=== PATIENT | female | born 1950 | race Caucasian/White ===

== ENCOUNTER 2024-11-28 09:35 | Outpatient (CLI) | payer MEDICARE, SELFPAY ==
--- NOTE | ~2024-11-28 | MR_ITS ---
EXAMINATION: MR cervical spine wo con DATE: 11/28/2024 10:47 INDICATION: Disease of spinal cord, unspecified. TECHNIQUE: Magnetic resonance imaging (MRI) of the cervical spine was performed without intravenous c ontrast. COMPARISON: Cervical spine MRI 06/18/2016 FINDINGS: Alignment is normal. Vertebral body heights are normal. There are changes of anterior fusio n procedure from C3 to C7 with interbody devices and anterior plates and screws. There is mildly decr eased disc height at C7-T1. The spinal cord signal intensity is normal. The following disc levels are specifically discussed: C2-C3: The disc does not extend beyond the endplate margin. There is no uncovertebral joint osteoarth ritis. There is severe bilateral facet joint osteoarthritis. There is mild bilateral neural foraminal stenosis. There is no central canal stenosis. C3-C4: There is severe right and moderate left uncovertebral joint hypertrophy. There is moderate anne ateral facet joint hypertrophy. There is mild lateral neural foraminal stenosis. There is no central canal stenosis. C4-C5: There is moderate bilateral uncovertebral joint hypertrophy. There is no facet joint osteoarth ritis. There is mild bilateral neural foraminal stenosis. There is no central canal stenosis. C5-C6: There is moderate bilateral uncovertebral joint hypertrophy. There is no facet joint osteoarth ritis. There is mild right neural foraminal stenosis. There is no central canal stenosis. C6-C7: There is mild bilateral uncovertebral joint hypertrophy. There is mild lateral facet joint ost eoarthritis. There is mild bilateral neural foraminal stenosis. There is no central canal stenosis. C7-T1: There is a central extrusion. There is no uncovertebral joint osteoarthritis. There is severe bilateral facet joint osteoarthritis. There is mild bilateral neural foraminal stenosis. There is mil d central canal stenosis. IMPRESSION: 1. Mild cervical spondylosis. 2. Anterior fusion procedure from C3 to C7. Reviewed, dictated and finalized at location A. ANICAL ADJUSTER
--- NOTE | ~2024-11-28 | US_ITS ---
EXAMINATION: US thyroid DATE: 11/28/2024 11:45 INDICATION: Disorder of thyroid, unspecified. TECHNIQUE: Multiple ultrasound images of the thyroid were obtained. COMPARISON: None. FINDINGS: The right thyroid lobe measures 4.5 x 1.6 x 1.7 cm. The left thyroid lobe measures 4.3 x 1.8 x 1.6 c m. In the right thyroid lobe, there is a 10 mm solid, hypoechoic, wider than tall nodule with smooth margin without echogenic foci (TI-RADS TR4). In the right thyroid lobe, there is a 7 mm mixed cystic and solid, isoechoic, wider than tall nodule with ill-defined margin without echogenic foci (TR2). I n the left thyroid lobe, there is a 9 mm solid, hypoechoic, wider than tall nodule with lobulated mar gin with punctate echogenic foci (TR5). In the left thyroid lobe, there is a 7 mm mixed cystic and so lid, hypoechoic, wider than tall nodule with smooth margin without echogenic foci (TR3). IMPRESSION: 1. Small thyroid nodules. Thyroid ultrasound is recommended in one year. Reviewed, dictated and finalized at location A. TH RESEARCHER
--- OUTSIDE RECORDS SUMMARY | 2024-11-28 10:27 | XMS_ITS | Patient Health Summary ---
Author Organization [facility] Address [address] [place] [address] Care Team Providers Care Websphere Developer Name Role Phone Unavailable Primary Care Provider Unavailabl e Note from [facility],non-owned Affiliates and Associated Physician Practices is amultiple site organization consisting of ambulatory clinics and hospital sitesin [place], [place], [place] and [place]. This disclosure is being madepursuant to the Care Everywhere program and may not contain all information available regarding this patient. Last updated 18.[facility] Social History Tobacco Use Types Packs/Day Years Used Date Smoking Tobacco: Never Assessed Sex and Gender Information Value Date Recorded Sex Assigned at Not on file Gender Identity Not on file Sexual Orientation Not on file
--- OUTSIDE RECORDS SUMMARY | 2024-11-28 10:27 | XMS_ITS | Referral Summary ---
Author Organization [facility] Address [address] [place] [address] Care Team Providers Care Contract Associate Name Role Phone Ann Koenig MD Primary Care Provider Encounters Date Type Department Care Team Description 10/09/2024 12:00 PM CASUALTY CLAIM ADJUSTER Office Visit [facility] Otolaryngology [address] [facility] [address], [address] [place] [address] Leonardo Bach II, MD Closed fracture of nasal bone, initial encounter (Primary Dx) from Last 3 Months Allergies Active Allergy Reactions Criticality Noted Date Comments Methadone Dizziness,Muscle pain,Other (See comments) High 08/18/2015 Slurred speech Hgeytpu-Dtb-Oen Reductase Inhibitors Muscle pain Medium 03/27/2019 Medications lidocaine (LIDODERM) 5 %Indications:pain Place 1 patch on the skin as needed 01/12/20 19 Active meloxicam (MOBIC) 15 mg tabletIndications: Osteoarthritis Take 1 tablet (15 mg total) by mouth every morning 01/04/20 19 Active albuterol HFA (VENTOLIN HFA) 90 mcg/actuation inhalerIndications :shortness of breath Inhale 1-2 puffs every 6 (six) hours as needed 09/12/20 17 Active allopurinol (ZYLOPRIM) 300 mg tabletIndications: prevention of acute gout attack Take 1 tablet (300 mg total) by mouth every morning 11/16/19 19 Active aspirin 81 mg enteric coated tabletIndications: prevention of thrombosis,heart health Take 1 tablet (81 mg total) by mouth every morning 12/27/19 15 Active blood glucose diagnostic (TRUE METRIX GLUCOSE TEST STRIP) strip 1 each by other route 2 (two) times a day 10/14/19 17 Active chlorthalidone 25 mg tabletIndications: hypertension Take 1 tablet (25 mg total) by mouth every morning 09/14/20 18 Active clopidogrel (PLAVIX) 75 mg tabletIndications: Cerebral Thromboembolism Prevention Take 1 tablet (75 mg total) by mouth every morning 09/11/20 18 Active diclofenac sodium (VOLTAREN) 1 % gelIndications:Ost eoarthritis Place 4 g on the skin daily as needed 06/19/20 18 Active dilTIAZem XR (CARTIA XT) 180 mg 24 hr capsuleIndications :hypertension Take 1 capsule (180 mg total) by mouth every morning 09/11/20 18 Active gabapentin (NEURONTIN) 800 mg tabletIndications: Neuropathic Pain Take 1 tablet (800 mg total) by mouth 3 (three) times a day 01/04/20 19 Active lancets (TRUEPLUS LANCETS) 28 gauge misc by other route 2 (two) times a day 10/14/19 17 Active lisinopril (PRINIVIL,ZESTRIL) 10 mg tabletIndications: hypertension Take 1 tablet (10 mg total) by mouth every morning 09/14/20 18 Active metFORMIN XR (GLUCOPHAGE XR) 500 mg 24 hr tabletIndications: type 2 diabetes mellitus Take 2 tablets (1,000 mg total) by mouth 2 (two) times a day 12/09/19 19 Active omeprazole (PriLOSEC) 20 mg capsuleIndications :GERD Take 1 capsule (20 mg total) by mouth nightly 09/11/20 18 Active ergocalciferol (VITAMIN D) 50,000 unit capsuleIndications :Vitamin D Deficiency Take 1 capsule (50,000 Units total) by mouth once a week Tuesday05/20/20 20 Active acetaminophen (TYLENOL) 325 mg tablet Take 2 tablets (650 mg total) by mouth every 6 (six) hours as needed for pain 100 tablet 1 08/02/20 20 Active docusate sodium (COLACE) 100 mg capsuleIndications :constipation Take 1 capsule (100 mg total) by mouth 2 (two) times a day HOLD if having diarrhea or loose stools 30 capsule 1 08/02/20 20 Active Accu-Chek Guide Me Glucose Mtr misc USE TO CHECK GLUCOSE TWICE DAILY 11/25/19 21 Active cyclobenzaprine (FLEXERIL) 10 mg tablet TAKE 1 TABLET BY MOUTH THREE TIMES DAILY NEEDED FOR MUSCLE SPASM 09/20/20 20 Active diazePAM (VALIUM) 2 mg tablet TAKE 1 TABLET BY MOUTH EVERY 6 HOURS NEEDED FOR ANXIETY (TAKE VALIUM DURING THE DAY AND CYCLOBENZAPRINE AT NIGHT) 09/22/20 20 Active ibuprofen (ADVIL,MOTRIN) 600 mg tablet Take by mouth every 6 (six) hours as needed 09/20/20 20 Active Active Problems Problem Noted Date Diagnosed Date Closed fracture of nasal bones 10/09/2024 Renovascular hypertension 12/22/2020 Abnormal finding on lung imaging 09/11/2020 Stage 3 chronic kidney disease 07/30/2020 Right shoulder pain 07/14/2020 Overview (07/14/2020): Added automatically from request for surgery [id number] Shoulder arthritis 07/14/2020 Overview (07/14/2020): Added automatically from request for surgery [id number] MARIE (dyspnea on exertion) 07/07/2020 Metabolic syndrome 07/07/2020 Physical deconditioning 07/07/2020 Restrictive lung disease 07/07/2020 Dysphagia 06/24/2020 Overview (12/22/2020): Added automatically from request for surgery [id number] Gastrointestinal hemorrhage associated with anorectal source 06/24/2020 Overview (12/22/2020): Added automatically from request for surgery [id number] Essential hypertension 02/06/2019 GERD (gastroesophageal reflux disease) 9 Right hip pain 07/12/2018 Acute upper respiratory infection 06/26/2018 Biceps tendon rupture, proximal 01/31/2018 Wheezing 01/10/2018 Tear of medial meniscus of right knee 12/13/2017 Lytic lesion of bone on x-ray 12/01/2017 Fall, accidental 11/14/2017 Knee pain 11/07/2017 Wears glasses 10/17/2017 Shoulder pain, right 07/20/2017 Overview (02/06/2019): Annotation - [id number]: Dx 2012 Right shoulder pain 07/20/2017 Overview (12/22/2020): Annotation - [id number]: Dx 2012 Added automatically from request for surgery [id number] Class 3 severe obesity in adult 07/04/2017 Chest pain due to myocardial ischemia 04/25/2017 Dyslipidemia 04/25/2017 Unsteady gait 01/11/2017 Tendinitis, calcific, shoulder 01/11/2017 Shoulder arthritis 01/11/2017 Overview (12/22/2020): Added automatically from request for surgery [id number] Posterior tibial tendonitis 11/19/2016 Neck pain 06/09/2016 NAY on CPAP 06/09/2016 Overview (02/06/2019): Annotation - [id number]: 10/18/16 sleep titration study 12 mmhg Osteoporosis screening 06/09/2016 Overview (02/06/2019): Transitioned From: Encounter for preventive health examination Vitamin D deficiency 06/09/2016 Sore muscles 04/22/2015 Muscle spasm 02/24/2015 DDD (degenerative disc disease), cervical 2014 Diabetes mellitus 12/03/2014 Gout 12/03/2014 Hyperlipidemia 12/03/2014 Lumbar spinal stenosis 12/03/2014 Neuropathy, peripheral 12/03/2014 RLS (restless legs syndrome) 12/03/2014 TIA (transient ischemic attack) 05/27/2011 Social History Tobacco Use Types Packs/Day Years Used Date Smoking Tobacco: Never Smokeless Tobacco: Never Alcohol Use Standard Drinks/Week Comments Not Currently 0 (1 standard drink = 0.6 oz pur e alcohol) Comments No Sex and Gender Information Value Date Recorded Sex Assigned at Not on file Legal Sex Female 12:35 AM CASUALTY CLAIM ADJUSTER Gender Identity Female 09/08/2020 3:29 PM CASUALTY CLAIM ADJUSTER Sexual Orientation Choose not to disclose 2019 3:38 PM CASUALTY CLAIM ADJUSTER Last Filed Vital Signs Vital Sign Reading Time Taken Comments Blood Pressure 116/52 08/04/2020 6:59 AM CASUALTY CLAIM ADJUSTER Pulse 79 08/04/2020 6:59 AM CASUALTY CLAIM ADJUSTER Temperature 36.2 C (97.1 F) 08/04/2020 6:59 AM CASUALTY CLAIM ADJUSTER Respiratory Rate 18 08/04/2020 6:59 AM CASUALTY CLAIM ADJUSTER Oxygen Saturation 92% 08/04/2020 6:59 AM CASUALTY CLAIM ADJUSTER Inhaled Oxygen Concentration - - Weight 95.7 kg (211 lb) 10/09/2024 4:24 PM CASUALTY CLAIM ADJUSTER Height 157.5 cm (5' 2 ) 10/09/2024 4:24 PM CASUALTY CLAIM ADJUSTER Body Mass Index 38.59 10/09/2024 4:24 PM CASUALTY CLAIM ADJUSTER Plan of Treatment Not on file Medical Devices Implanted Type Area Field Contractor Device Identifier Shelf Expiration Date Model / Serial / Lot [employer] [id number] Delta Xtend 38mm Shoulder +3mm Standard Cup Humeral Polyethylene Latex Free - Sna - [id number] Implanted:Qty: 1 on 08/01/2020 by Harris Corado MD at [facility] Other - see comments [employer] [id number] 04/25/2025 [id number] / NA / [id number] [employer] [id number] Metaglene 10mm Long Peg Fixation - [id number] Implanted:Qty: 1 on 08/01/2020 by Harris Corado MD at [facility] Right: Shoulder [employer] [id number] 06/25/2025 [id number] / / [id number] [employer] [id number] Delta Xtend 4.5mm 36mm Lock Shoulder Glenoid Screw Bone Metaglene - [id number] Implanted:Qty: 1 on 08/01/2020 by Harris Corado MD at [facility] Right: Shoulder [employer] [id number] 04/25/2025 [id number] / / [id number] [employer] [id number] Delta Xtend 4.5mm 36mm Lock Shoulder Glenoid Screw Bone Metaglene - [id number] Implanted:Qty: 1 on 08/01/2020 by Harris Corado MD at [facility] Right: Shoulder [employer] [id number] 05/26/2025 [id number] / / [id number] [employer] [id number] Cmpnt Glenoid 38mm +4mm Eccentric Delta Xtend - [id number] Implanted:Qty: 1 on 08/01/2020 by Harris Corado MD at [facility] Right: Shoulder [employer] [id number] 05/26/2024 [id number] / / [id number] [employer] [id number] Global Unite 8mm 107mm Modular Shoulder Standard Stem Humeral - [id number] Implanted:Qty: 1 on 08/01/2020 by Harris Corado MD at [facility] Right: Shoulder [employer] [id number] 11/23/2028 [id number] / / [id number] [employer] [id number] Implant Shldr Xtend Modecc 155epi Por Sz1 Rt - [id number] Implanted:Qty: 1 on 08/01/2020 by Harris Corado MD at [facility] Right: Shoulder [employer] 04/25/2030 [id number] / / [id number] Explanted Type Area Field Contractor Device Identifier Shelf Expiration Date Model / Serial / Lot [employer] [id number] Delta Xtend 1.2mm 150mm Screw Glenoid Large Guide Pin Orthopedic - [id number] Explanted:Qty: 1 on 08/01/2020 at [facility] [employer] [id number] / / Description:*ADDED TO [employer] T SCREEN TO CORRECT NEW ITEM ADDED ON SUPPLY. THIS IS BUILT IN [employer] AN IMPLANT. KV Procedures Procedure Name Priority Date/Time Associated Diagnosis Comments EGFR Routine 08/04/2020 5:54 AM CASUALTY CLAIM ADJUSTER POCT HEMOGLOBIN A1C Routine 07/25/2020 9 :08 AM CDT from Last 3 Months or Most Recently Relevant to Health Maintenance Results * eGFR (08/04/2020 5:54 AM CASUALTY CLAIM ADJUSTER) eGFR 38 mL/min/1.7 3 m2 [facility] Comment: Interpretive Data Reference Interval Normal >/= 90 mL/min/1.73m2 Mildly decreased* 60 - 89 mL/min/1.73m2 Mildly to moderately decreased 45 - 59 mL/min/1.73m2 Moderately to severely decreased 30 - 44 mL/min/1.73m2 Severely decreased 15 - 29 mL/min/1.73m2 Kidney Failure < 15 mL/min/1.73m2 *Relative to young adult level If -Guyanese multiply value by 1.16. Estimated glomerular filtration rate is determined by the CKD-EPI equation recommended by the National Kidney Foundation (KDIGO 2012 Clinical Practice Guideline for the Evaluation and Management of Chronic Kidney Disease. Kidney Intnl Suppl Sep 2012;3:1). The CKD-EPI equation should not be used for patients with unstable renal function and has not been validated in children and those over 70. Current interpretive data was last reviewed 2016. Blood specimen (specimen) 08/04/2020 5:54 AM CASUALTY CLAIM ADJUSTER 08/04/2020 6:01 AM CASUALTY CLAIM ADJUSTER us Sameer Eddy MD LAB BLOOD ORDERABLES F inal Result Performing Organization Address [facility] Co de Phone Number [facility] [address] [facility] [place] [address] * (ABNORMAL) POCT hemoglobin A1c (07/25/2020 9:08 AM CDT) Hgb A1C, POC 6.6(H) 4.0 - 6.0 % [facility] Est Average Gluc POC 143 mg/dL [facility] Comment: The ADA recommends reporting an estimated Average Glucose (eAG) with all Hemoglobin A1c results using the equation derived from a study of 507 normal and diabetic adults. Minority populations were underrepresented and children were not included. (Diabetes Care 31:1802-1809, 2008). The eAG is not equivalent to a fasting glucose. Blood specimen (specimen) 07/25/2020 9:08 AM CDT 07/25/2020 9:08 AM CDT Harris Corado MD POINT OF CARE TEST ORD ERABLES Final Result Performing Organization Address City/[facility]/ZIP Co de Phone Number [facility] Department [place] [address] from Last 3 Months or Most Recently Relevant to Health Maintenance Insurance [facility] MEDICARE HMO [facility] CHOICE MEDICARE O MEDICARE [employer] CHOICE MEDICARE PPO AARP [employer] CHOICE MEDICARE PPO AARP Advance Directives For more information, please contact: [phone] Documents on File Type Date Recorded Patient Senior Tax Accountant Expl anation ADVANCE DIRECTIVE 08/01/2020 7:45 AM * Full Code (Latest Code Status on File) Date Activated Date Inactivated Comments 08/01/2020 1:20 PM 08/04/2020 4:52 PM Care Teams Contract Associate Relationship Specialty [place] [address] [place] [address] PCP - General Family Medicine 07/19/24
--- OUTSIDE RECORDS SUMMARY | 2024-11-28 10:27 | XMS_ITS | Encounter Summary ---
Author Organization [facility] Address [address] [place] [address] Care Team Providers Care Pullman Car Clerk Name Role Phone Gertrude Butt MD Primary Care Provider Ann Koenig MD Primary Care Provider [phone] Encounter Details Date Type Department Care Team (Late st Contact Info) Description 08/04/2020 Documentation [facility] Case Management [address] [place] [address] Nohelia Connor RN Social History Tobacco Use Types Packs/Day Years Used Date Smoking Tobacco: Never Smokeless Tobacco: Never Alcohol Use Standard Drinks/Week Comments Not Currently 0 (1 standard drink = 0.6 oz pur e alcohol) Comments No Sex and Gender Information Value Date Recorded Sex Assigned at Not on file Legal Sex Female 12:35 AM ELECTRONIC TECH Gender Identity Female 09/08/2020 3:29 PM ELECTRONIC TECH Sexual Orientation Choose not to disclose 2019 3:38 PM ELECTRONIC TECH documented as of this encounter Plan of Treatment Not on file documented as of this encounter Visit Diagnoses Diagnosis Primary osteoarthritis of shoulder, unspecified laterality- Primary documented in this encounter Care Teams Pullman Car Clerk Relationship Specialty [place] [address] [address] [address] PCP - General Internal Medicine 01/16/19 07/18/24 [place] [address] [address] PCP - General Family Medicine 07/19/24 documented as of this encounter
--- OUTSIDE RECORDS SUMMARY | 2024-11-28 10:27 | XMS_ITS | Encounter Summary ---
Author Organization [facility] Address [address] [place] [address] Phone Care Team Providers Care Electrocardiographic Technician Name Role Phone Gertrude Butt MD Primary Care Provider [phone] Ann Koenig MD Primary Care Provider [phone] Encounter Details Date Type Department Care Team (Late st Contact Info) Description 04/19/2019 Orders Only [facility] [phone] Scanning, Provider Social History Tobacco Use Types Packs/Day Years Used Date Smoking Tobacco: Never Assessed Comments Unknown Sex and Gender Information Value Date Recorded Sex Assigned at Not on file Legal Sex Female 12:35 AM INFRASTRUCTURE PROJECT MANAGER Gender Identity Female 09/08/2020 3:29 PM INFRASTRUCTURE PROJECT MANAGER Sexual Orientation Choose not to disclose 2019 3:38 PM INFRASTRUCTURE PROJECT MANAGER documented as of this encounter Plan of Treatment Not on file documented as of this encounter Procedures Procedure Name Priority Date/Time Associated Diagnosis Comments SCAN - RADIOLOGY/IMAGING 04/19/2019 documented in this encounter Results * SCAN - RADIOLOGY/IMAGING (04/19/2019) Anatomical Region Laterality Modality Other us Provider Scanning Final Result documented in this encounter Visit Diagnoses Not on filedocumented in this encounter Care Teams Electrocardiographic Technician Relationship Specialty [place] [address] [address] [address] [place] [address] PCP - General Internal Medicine 01/16/19 07/18/24 [place] [address] [place] [address] PCP - General Family Medicine 07/19/24 documented as of this encounter
--- OUTSIDE RECORDS SUMMARY | 2024-11-28 10:27 | XMS_ITS | Clinical Summary ---
Author Organization [facility] Address [address] [place] [address] Care Team Providers Care Ring Conductor Name Role Phone Unavailable Primary Care Provider Unavailabl e Source Comments [facility],non-owned Affiliates and Associated Physician Practices is amultiple site organization consisting of ambulatory clinics and hospital sitesin [place], [place], [place] and [place]. This disclosure is being madepursuant to the Care Everywhere program and may not contain all information available regarding this patient. Last updated 18.[facility] [employer] Social History Tobacco Use Types Packs/Day Years Used Date Smoking Tobacco: Never Assessed Sex and Gender Information Value Date Recorded Sex Assigned at Not on file Gender Identity Not on file Sexual Orientation Not on file Plan of Treatment Health Maintenance Due Date Last Done Comments BONE DENSITY TESTING 1950 COLOGUARD (AGES 45-75) - COLON CA SCREENING 1949 COLON MONITORING 1949 COLONOSCOPY - COLON CA SCREENING 1949 CT COLONOGRAPHY - COLON CA SCREENING 1950 Colorectal Cancer Screening 1949 FIT - COLON CA SCREENING 1949 FLEX SIG - COLON CA SCREENING 1949 LIPID TESTING 1949 MAMMOGRAM 1949 HEPATITIS C SCREENING 04/27/1967 DTAP/TDAP/TD VACCINES (1 - Tdap) 1968 PNEUMOCOCCAL VACCINE 50+ (1 of 1 - PCV) 1999 ZOSTER VACCINE (1 of 2) 1999 Respiratory Syncytial Virus (RSV) Vaccine Pt: or over 60 yrs (1 - 1-dose 75+ series) 2024 COVID-19 VACCINE (1 - 2023-25 season) 2024 INFLUENZA VACCINE (#1) 2024 07/0407/04/2017, 06/09/2016, Additional history exists DEPRESSION SCREENING 09/26/2024 HEPATITIS B VACCINE Aged Out No longe r eligible based on patient's age to complete this topic HIB VACCINE Aged Out No longer eligi ble based on patient's age to complete this topic HPV VACCINE Aged Out No longer eligi ble based on patient's age to complete this topic MENINGOCOCCAL (Group B) VACCINE Aged Out No longer eligible based on patient's age to complete this topic MENINGOCOCCAL VACCINE Aged Out No francisco javier anurag eligible based on patient's age to complete this topic
--- OUTSIDE RECORDS SUMMARY | 2024-11-28 10:27 | XMS_ITS | Referral Summary ---
Author Organization [facility] Address [address] [place] [address] Care Team Providers Care Switchboard Operator Helper Name Role Phone Unavailable Primary Care Provider Unavailabl e Source Comments [facility],non-owned Affiliates and Associated Physician Practices is amultiple site organization consisting of ambulatory clinics and hospital sitesin [place], [place], [place] and [place]. This disclosure is being madepursuant to the Care Everywhere program and may not contain all information available regarding this patient. Last updated 18.[facility] Social History Tobacco Use Types Packs/Day Years Used Date Smoking Tobacco: Never Assessed Sex and Gender Information Value Date Recorded Sex Assigned at Not on file Gender Identity Not on file Sexual Orientation Not on file Plan of Treatment Not on file
--- OUTSIDE RECORDS SUMMARY | 2024-11-28 10:27 | XMS_ITS | Clinical Summary ---
Author Organization [facility] Address [address] [place] [address] Care Team Providers Care Bag Filler Name Role Phone Ann Koenig MD Primary Care Provider [phone] Allergies Active Allergy Reactions Criticality Noted Date Comments Methadone Dizziness,Muscle pain,Other (See comments) High 08/18/2015 Slurred speech Tlbdtnp-Sog-Hhp Reductase Inhibitors Muscle pain Medium 03/27/2019 Medications [...] 20 Active Accu-Chek Guide Me Glucose Mtr [facility] USE TO CHECK GLUCOSE TWICE DAILY 11/25/19 [...] (07/14/2020): Added automatically from request for surgery [id number] Shoulder arthritis 07/14/2020 Overview (07/14/2020): Added automatically from request for surgery [id number] MARIE (dyspnea on exertion) 07/07/2020 Metabolic syndrome 07/07/2020 Physical deconditioning 07/07/2020 Restrictive lung disease 07/07/2020 Dysphagia 06/24/2020 Overview (12/22/2020): Added automatically from request for surgery [id number] Gastrointestinal hemorrhage associated with anorectal source 06/24/2020 Overview (12/22/2020): Added automatically from request for surgery [id number] Essential hypertension 02/06/2019 GERD (gastroesophageal reflux disease) 9 Right hip pain 07/12/2018 Acute upper respiratory infection 06/26/2018 Biceps tendon rupture, proximal 01/31/2018 Wheezing 01/10/2018 Tear of medial meniscus of right knee 12/13/2017 Lytic lesion of bone on x-ray 12/01/2017 Fall, accidental 11/14/2017 Knee pain 11/07/2017 Wears glasses 10/17/2017 Shoulder pain, right 07/20/2017 Overview (02/06/2019): Annotation - [id number]: Dx 2012 Right shoulder pain 07/20/2017 Overview (12/22/2020): Annotation - [id number]: Dx 2012 Added automatically from request for surgery [id number] Class 3 severe obesity in adult 07/04/2017 Chest pain due to myocardial ischemia 04/25/2017 Dyslipidemia 04/25/2017 Unsteady gait 01/11/2017 Tendinitis, calcific, shoulder 01/11/2017 Shoulder arthritis 01/11/2017 Overview (12/22/2020): Added automatically from request for surgery [id number] Posterior tibial tendonitis 11/19/2016 Neck pain 06/09/2016 NAY on CPAP 06/09/2016 Overview (02/06/2019): Annotation - [id number]: 10/18/16 sleep titration study 12 mmhg Osteoporosis screening 06/09/2016 Overview (02/06/2019): Transitioned From: Encounter for preventive health examination Vitamin D deficiency 06/09/2016 Sore muscles 04/22/2015 Muscle spasm 02/24/2015 DDD (degenerative disc disease), cervical 2014 Diabetes mellitus 12/03/2014 Gout 12/03/2014 Hyperlipidemia 12/03/2014 Lumbar spinal stenosis 12/03/2014 Neuropathy, peripheral 12/03/2014 RLS (restless legs syndrome) 12/03/2014 TIA (transient ischemic attack) 05/27/2011 Encounters Date Type Department Care Team Description 10/09/2024 12:00 PM SERVICE CENTER SPECIALIST Office Visit [facility] Otolaryngology [address], [address] [place] [address] Leonardo Bach II, MD Closed fracture of nasal bone, initial encounter (Primary Dx) from Last 3 Months Surgical History Surgery Date Site/Laterality Comments FLUORO GUIDED INJECTION SHOULDER RIGHT 02/13/2019 Right EPIDURAL INJECTION RIGHT CERVICAL THORACIC 1 LEVEL 05/24/2019 Right FLUORO GUIDED INJECTION SHOULDER RIGHT 08/20/2019 Right COLONOSCOPY 2019 & 2003 BREAST BIOPSY 04/1992 , 07/1992 Left HYSTERECTOMY 11/24/1977 - 12/24/1977 Partial Hysterectomy GANGLION CYST EXCISION 09/26/1976 - 09/25/1977 Right CARPAL TUNNEL RELEASE 1991 & 1990 Bilateral 1992-Rt, 1991-L OTHER SURGICAL HISTORY 09/26/2007 - 09/25/2008 Exploratory bladder surgery NECK SURGERY 01/24/2010 - 02/23/2010 ESOPHAGOSCOPY / EGD 07/24/2020 CHOLECYSTECTOMY SPINE SURGERY Spinal intervetebral disc/vertabrae fusion Medical History Medical History Date Comments Personal history of other me dical treatment 04/2008 Hospitalized due to having paresthesia waist down to feet -per Pt Personal history of other me dical treatment 04/2015 Hospitalized due to excessi ve sleepiness, inability to speak and inability to move body with paresthesia Sleep apnea HTN (hypertension) Diabetes (HCC) Neuropathy GERD (gastroesophageal reflux disease) Thyroid disease Stroke (HCC) Kidney disease Family History Medical History Relation Name Comments Cancer Mother COPD Sister 1 Heart failure Sister 1 COPD Sister 2 Cancer Sister 2 Relation Name Status Comments Mother Sister 1 Sister 2 Alive Social History Tobacco Use Types Packs/Day Years Used Date Smoking Tobacco: Never Smokeless Tobacco: Never Alcohol Use Standard Drinks/Week Comments Not Currently 0 (1 standard drink = 0.6 oz pur e alcohol) Comments No Sex and Gender Information Value Date Recorded Sex Assigned at Not on file Legal Sex Female 12:35 AM SERVICE CENTER SPECIALIST Gender Identity Female 09/08/2020 3:29 PM SERVICE CENTER SPECIALIST Sexual Orientation Choose not to disclose 2019 3:38 PM SERVICE CENTER SPECIALIST Obstetrics History Comments Post menopause Last Filed Vital Signs Vital Sign Reading Time Taken Comments Blood Pressure 116/52 08/04/2020 6:59 AM SERVICE CENTER SPECIALIST Pulse 79 08/04/2020 6:59 AM SERVICE CENTER SPECIALIST Temperature 36.2 C (97.1 F) 08/04/2020 6:59 AM SERVICE CENTER SPECIALIST Respiratory Rate 18 08/04/2020 6:59 AM SERVICE CENTER SPECIALIST Oxygen Saturation 92% 08/04/2020 6:59 AM SERVICE CENTER SPECIALIST Inhaled Oxygen Concentration - - Weight 95.7 kg (211 lb) 10/09/2024 4:24 PM SERVICE CENTER SPECIALIST Height 157.5 cm (5' 2 ) 10/09/2024 4:24 PM SERVICE CENTER SPECIALIST Body Mass Index 38.59 10/09/2024 4:24 PM SERVICE CENTER SPECIALIST Plan of Treatment Health Maintenance Due Date Last Done Comments Albumin Creatinine Ratio, Urine 1949 Colon Cancer Screening-Colonoscopy 1949 Depression Screening 1949 Hepatitis C Screening 1949 Dilated Eye Exam 1949 Foot Exam 1949 Hepatitis B Screening 1967 Well Visit 65+ 2014 Osteoporosis Screening-Bone Density Scan 06/11/2018 06/11/2016 Hemoglobin A1C 01/23/2021 07/25/2020 Fall Risk Assessment 08/04/2021 08/04/2020 eGFR 08/04/2021 08/04/2020, 1104/2020, 08/02/2020 Covid-19 Vaccine (4 - 2023-2 5 season) 2024 07/23/2021, 12/30/2020, 12/02/2020 Lipid Panel 09/20/2024 09/20/2023, 07/03/2019 DTaP/Tdap/Td Vaccine (2 - Td or Tdap) 07/04/2025 07/04/2015 Pneumococcal vaccine 65+ Completed 020, 03/15/2016, 07/24/2014 Zoster Vaccine Completed 01/04/2023, 10/25/2022 Breast Cancer Screening-Mammogram Discontinued 12/07/2023, 08/26/2022, 08/24/2021, Additional history exists Influenza Vaccine Completed 07/14/2024, , 07/20/2020, Additional history exists Medical Devices Implanted Type Area Recordist Device Identifier Shelf Expiration Date Model / Serial / Lot [employer] [id number] Delta Xtend 38mm Shoulder +3mm Standard Cup Humeral Polyethylene Latex Free - Sna - [id number] Implanted:Qty: 1 on 08/01/2020 by Harris Corado MD at [facility] Other - see comments [employer] [id number] 04/25/2025 [id number] / NA / [id number] [employer] [id number] Metaglene 10mm Long Peg Fixation - [id number] Implanted:Qty: 1 on 08/01/2020 by Harris Corado MD at [facility] Right: Shoulder [employer] [id number] 06/25/2025 [id number] / / [id number] [employer] [id number] Delta Xtend 4.5mm 36mm Lock Shoulder Glenoid Screw Bone Metaglene - [id number] Implanted:Qty: 1 on 08/01/2020 by Harris Corado MD at [facility] Right: Shoulder [employer] [id number] 04/25/2025 [id number] / / [id number] [employer] [id number] Delta Xtend 4.5mm 36mm Lock Shoulder Glenoid Screw Bone Metaglene - [id number] Implanted:Qty: 1 on 08/01/2020 by Harris Corado MD at [facility] Right: Shoulder [employer] [id number] 05/26/2025 [id number] / / [id number] [employer] [id number] Cmpnt Glenoid 38mm +4mm Eccentric Delta Xtend - [id number] Implanted:Qty: 1 on 08/01/2020 by Harris Corado MD at [facility] Right: Shoulder [employer] [id number] 05/26/2024 [id number] / / [id number] [employer] [id number] Global Unite 8mm 107mm Modular Shoulder Standard Stem Humeral - [id number] Implanted:Qty: 1 on 08/01/2020 by Harris Corado MD at [facility] Right: Shoulder [employer] [id number] 11/23/2028 [id number] / / [id number] [employer] [id number] Implant Shldr Xtend Modecc 155epi Por Sz1 Rt - [id number] Implanted:Qty: 1 on 08/01/2020 by Harris Corado MD at [facility] Right: Shoulder [employer] 04/25/2030 [id number] / / [id number] Explanted Type Area Recordist Device Identifier Shelf Expiration Date Model / Serial / Lot [employer] [id number] Delta Xtend 1.2mm 150mm Screw Glenoid Large Guide Pin Orthopedic - [id number] Explanted:Qty: 1 on 08/01/2020 at [facility] [employer] [id number] / / Description:*ADDED TO [employer] T SCREEN TO CORRECT NEW ITEM ADDED ON SUPPLY. THIS IS BUILT IN [employer] AN IMPLANT. KV Procedures Procedure Name Priority Date/Time Associated Diagnosis Comments EGFR Routine 08/04/2020 5:54 AM SERVICE CENTER SPECIALIST POCT HEMOGLOBIN A1C Routine 07/25/2020 9 :08 AM CDT from Last 3 Months or Most Recently Relevant to Health Maintenance Results * eGFR (08/04/2020 5:54 AM SERVICE CENTER SPECIALIST) eGFR 38 mL/min/1.7 3 m2 [facility] Comment: Interpretive Data Reference Interval Normal >/= 90 mL/min/1.73m2 Mildly decreased* 60 - 89 mL/min/1.73m2 Mildly to moderately decreased 45 - 59 mL/min/1.73m2 Moderately to severely decreased 30 - 44 mL/min/1.73m2 Severely decreased 15 - 29 mL/min/1.73m2 Kidney Failure < 15 mL/min/1.73m2 *Relative to young adult level If -Marshallese multiply value by 1.16. Estimated glomerular filtration [...] 2016. Blood specimen (specimen) 08/04/2020 5:54 AM SERVICE CENTER SPECIALIST 08/04/2020 6:01 AM SERVICE CENTER SPECIALIST us Sameer Eddy MD LAB BLOOD ORDERABLES F inal Result [facility] [address] [facility]. Department [place] [address] * (ABNORMAL) POCT hemoglobin A1c (07/25/2020 9:08 AM CDT) Hgb A1C, POC 6.6(H) 4.0 - 6.0 % [facility] Est Average Gluc POC 143 mg/dL [facility] Comment: The ADA recommends reporting an estimated Average Glucose (eAG) with all Hemoglobin A1c results using the equation derived from a study of 507 normal and diabetic adults. Minority populations were underrepresented and children were not included. (Diabetes Care 31:9644-5082, 2008). The eAG is not equivalent to a fasting glucose. Blood specimen (specimen) 07/25/2020 9:08 AM CDT 07/25/2020 9:08 AM CDT Harris Corado MD POINT OF CARE TEST ORD ERABLES Final Result [facility] Department [place] [address] from Last 3 Months or Most Recently Relevant to Health Maintenance Insurance HUMANA MEDICARE HMO HUMANA CHOICE MEDICARE O AARP MEDICARE HUMANA CHOICE MEDICARE PPO Member Subscriber Plan / Payer (Ef fective 2019-Present) Name:Maria Luz Recinos Relation to Subscriber:Self Name:Jorje Maria Luz Payer ID:[id number] Group ID:[id number] RE Type:COMMERCIAL Address: [address] [place] [phone] HUMANA CHOICE MEDICARE PPO AARP Advance Directives For more information, please contact: [phone] Documents on File Type Date Recorded Patient Director Of Sports Medicine Expl anation ADVANCE DIRECTIVE 08/01/2020 7:45 AM * Full Code (Latest Code Status on File) Date Activated Date Inactivated Comments 08/01/2020 1:20 PM 08/04/2020 4:52 PM Care Teams Bag Filler Relationship Specialty [place] [address] [place] [address] PCP - General Family Medicine 07/19/24
== END 2024-11-28 09:36 | disposition home or self-care (01) ==
PROVIDERS: PCP Family Medicine; Visit Provider Neurological Surgery
DX: E04.2 Nontoxic multinodular goiter (principal); M47.812 Spondylosis without myelopathy or radiculopathy, cervical region; Z98.1 Arthrodesis status
CPT/HCPCS: 72141; 76536

== ENCOUNTER 2024-12-04 15:05 | Outpatient (CLI) | payer MEDICARE, SELFPAY ==
--- NOTE | ~2024-12-04 | DEXA_ITS ---
Bone Density Report Name: AYAKA LONG Age: 74 Sex: Female Ethnicity: White Date of : 1950 Indication: postmenopausal; screening for osteoporosis; height loss; inflammatory bowel disease; history of glucocorticoids; hysterectomy; rheumatoid arthritis; Referring Provider: THADDEUS STEWART Study: Bone densitometry was performed. Exam Date: December 04, 2024 Accession number: [id number] Bone Density: Region BMD T-score Z-score Classification AP Spine(L1-L4) 1.258 1.9 4.3 Normal Femoral Neck (Left) 0.795 -0.5 1.6 Normal Total Hip (Left) 0.912 -0.2 1.6 Normal Femoral Neck (Right) 0.760 -0.8 1.3 Normal Total Hip (Right) 0.910 -0.3 1.6 Normal Total Hip Mean 0.911 -0.3 1.6 Normal World Health Organization criteria for BMD impression classify patients as: Normal (T-score at or above -1.0), Osteopenia (T-score between -1.0 and -2.5), or Osteoporosis (T-score at or below -2.5). 10-year Fracture Risk: FRAX not reported because: All T-scores for Spine Total, Hip Total, Femoral Neck at or above -1.0 Treated for osteoporosis Clinical Information Provided by Patient: Has taken Glucocorticoids Has rheumatoid arthritis Is being treated for osteoporosis Has used the following medications: Vitamin D, Calcium Has the following medical conditions: Inflammatory bowel diseases, Hysterectomy, STAGE 3 KIDNEY FAILURE Patient maximum height was 63.5 Menopause Age: 27 No regular weight bearing exercise Onset of menses at age 8 Number of children 0 Missed period for more than 6 months in a row Impression: The patient has normal bone mass. The patient has risk factors, including: history of glucocorticoid therapy. Discussion: It is important to ask patients whether they are taking their medications and to encourage continued and appropriate compliance with their osteoporosis therapies to reduce fracture risk. It is also important to review their risk factors and encourage appropriate calcium and vitamin D intakes, exercise, fall prevention and other lifestyle measures. Follow-Up: Consider a repeat BMD and Vertebral Fracture Assessment (VFA) exam in 2 years or sooner if medically necessary, to reassess this patient's status. Reported by: WILLIE on 12/04/2024 3:56:00 PM. Reviewed, dictated and finalized at location AJonathan GILMORE
--- OUTSIDE RECORDS SUMMARY | 2024-12-04 17:06 | XMS_ITS | Encounter Summary ---
Author Organization [facility] [facility] Address [address] [place] [address] Phone Care Team Providers Care Newswriter Name Role Phone Gertrude Butt MD Primary Care Provider Ann Koenig MD Primary Care Provider [phone] Encounter Details Date Type Department Care Team (Late st Contact Info) Description 04/19/2019 Orders Only [facility] [phone] Scanning, Provider Social History Tobacco Use Types Packs/Day Years Used Date Smoking Tobacco: Never Assessed Comments Unknown Sex and Gender Information Value Date Recorded Sex Assigned at Not on file Legal Sex Female 12:35 AM COACH CLEANER Gender Identity Female 09/08/2020 3:29 PM COACH CLEANER Sexual Orientation Choose not to disclose 2019 3:38 PM COACH CLEANER documented as of this encounter Plan of Treatment Not on file documented as of this encounter Procedures Procedure Name Priority Date/Time Associated Diagnosis Comments SCAN - RADIOLOGY/IMAGING 04/19/2019 documented in this encounter Results * SCAN - RADIOLOGY/IMAGING (04/19/2019) Anatomical Region Laterality Modality Other us Provider Scanning Final Result documented in this encounter Visit Diagnoses Not on filedocumented in this encounter Care Teams Newswriter Relationship Specialty [place] [address] [place] [place] [address] PCP - General Internal Medicine 01/16/19 07/18/24 [place] [address] [place] [address] PCP - General Family Medicine 07/19/24 documented as of this encounter
--- OUTSIDE RECORDS SUMMARY | 2024-12-04 17:06 | XMS_ITS | Encounter Summary ---
Author Organization [facility] Address [address] [place] [address] Care Team Providers Care Carbon Paper Coating Supervisor Name Role Phone Gertrude Butt MD Primary Care Provider [phone] Ann Koenig MD Primary Care Provider Encounter Details Date Type Department Care Team (Late st Contact Info) Description 08/04/2020 Documentation [facility] Case Management [address] [place] [address] Nohelia Connor RN Social History Tobacco Use Types Packs/Day Years Used Date Smoking Tobacco: Never Smokeless Tobacco: Never Alcohol Use Standard Drinks/Week Comments Not Currently 0 (1 standard drink = 0.6 oz pur e alcohol) Comments No Sex and Gender Information Value Date Recorded Sex Assigned at Not on file Legal Sex Female 12:35 AM METAL PAINTER Gender Identity Female 09/08/2020 3:29 PM METAL PAINTER Sexual Orientation Choose not to disclose 2019 3:38 PM METAL PAINTER documented as of this encounter Plan of Treatment Not on file documented as of this encounter Visit Diagnoses Diagnosis Primary osteoarthritis of shoulder, unspecified laterality- Primary documented in this encounter Care Teams Carbon Paper Coating Supervisor Relationship Specialty [place] [address] [address] [address] PCP - General Internal Medicine 01/16/19 07/18/24 [place] [address] [address] PCP - General Family Medicine 07/19/24 documented as of this encounter
--- OUTSIDE RECORDS SUMMARY | 2024-12-04 17:06 | XMS_ITS | Clinical Summary ---
Author Organization [facility] Address [address] [place] [address] Care Team Providers Care Booth Manager Name Role Phone Ann Koenig MD Primary Care Provider [phone] Allergies Active Allergy Reactions Criticality Noted Date Comments Methadone Dizziness,Muscle pain,Other (See comments) High 08/18/2015 Slurred speech Dqairwq-Vii-Ugt Reductase Inhibitors Muscle pain Medium 03/27/2019 Medications [...] 20 Active Accu-Chek Guide Me Glucose Mtr [facility] USE TO CHECK GLUCOSE TWICE DAILY 11/25/19 [...] (07/14/2020): Added automatically from request for surgery [id number] Shoulder arthritis 07/14/2020 Overview (07/14/2020): Added automatically from request for surgery [id number] MARIE (dyspnea on exertion) 07/07/2020 Metabolic syndrome 07/07/2020 Physical deconditioning 07/07/2020 Restrictive lung disease 07/07/2020 Dysphagia 06/24/2020 Overview (12/22/2020): Added automatically from request for surgery [id number] Gastrointestinal hemorrhage associated with anorectal source 06/24/2020 Overview (12/22/2020): Added automatically from request for surgery [id number] Essential hypertension 02/06/2019 GERD (gastroesophageal reflux disease) 9 Right hip pain 07/12/2018 Acute upper respiratory infection 06/26/2018 Biceps tendon rupture, proximal 01/31/2018 Wheezing 01/10/2018 Tear of medial meniscus of right knee 12/13/2017 Lytic lesion of bone on x-ray 12/01/2017 Fall, accidental 11/14/2017 Knee pain 11/07/2017 Wears glasses 10/17/2017 Shoulder pain, right 07/20/2017 Overview (02/06/2019): Annotation - [id number]: Dx 2012 Right shoulder pain 07/20/2017 Overview (12/22/2020): Annotation - [id number]: Dx 2012 Added automatically from request for surgery [id number] Class 3 severe obesity in adult 07/04/2017 Chest pain due to myocardial ischemia 04/25/2017 Dyslipidemia 04/25/2017 Unsteady gait 01/11/2017 Tendinitis, calcific, shoulder 01/11/2017 Shoulder arthritis 01/11/2017 Overview (12/22/2020): Added automatically from request for surgery [id number] Posterior tibial tendonitis 11/19/2016 Neck pain 06/09/2016 ANY on CPAP 06/09/2016 Overview (02/06/2019): Annotation - [id number]: 10/18/16 sleep titration study 12 mmhg Osteoporosis [...] Department Care Team Description 10/09/2024 12:00 PM FIGURE MODEL Office Visit [facility] [address], [address] [place] [address] Leonardo Bach II, MD Closed [...] on file Legal Sex Female 12:35 AM FIGURE MODEL Gender Identity Female 09/08/2020 3:29 PM FIGURE MODEL Sexual Orientation Choose not to disclose 2019 3:38 PM FIGURE MODEL Obstetrics History Comments Post menopause Last Filed Vital Signs Vital Sign Reading Time Taken Comments Blood Pressure 116/52 08/04/2020 6:59 AM FIGURE MODEL Pulse 79 08/04/2020 6:59 AM FIGURE MODEL Temperature 36.2 C (97.1 F) 08/04/2020 6:59 AM FIGURE MODEL Respiratory Rate 18 08/04/2020 6:59 AM FIGURE MODEL Oxygen Saturation 92% 08/04/2020 6:59 AM FIGURE MODEL Inhaled Oxygen Concentration - - Weight 95.7 kg (211 lb) 10/09/2024 4:24 PM FIGURE MODEL Height 157.5 cm (5' 2 ) 10/09/2024 4:24 PM FIGURE MODEL Body Mass Index 38.59 10/09/2024 4:24 PM FIGURE MODEL Plan of Treatment Health Maintenance Due Date [...] history exists Medical Devices Implanted Type Area Grain Elevator Motor Starter Device Identifier Shelf Expiration Date Model / Serial / Lot Depuy Orthopaed[employer] Inc [id number] Delta Xtend 38mm Shoulder +3mm Standard Cup Humeral Polyethylene Latex Free - Sna - [id number] Implanted:Qty: 1 on 08/01/2020 by Harris Corado MD at [facility] Other - see comments Depuy [employer] [id number] 04/25/2025 [id number] / NA / [id number] Depuy [employer] [id number] Metaglene 10mm Long Peg Fixation - [id number] Implanted:Qty: 1 on 08/01/2020 by Harris Corado MD at [facility] Right: Shoulder [employer] [id number] 06/25/2025 [id number] / / [id number] Dep[employer] [id number] Delta Xtend 4.5mm 36mm Lock Shoulder Glenoid Screw Bone Metaglene - [id number] Implanted:Qty: 1 on 08/01/2020 by Harris Corado MD at [facility] Right: Shoulder [employer] [id number] 04/25/2025 [id number] / / [id number] Dep[employer] [id number] Delta Xtend 4.5mm 36mm Lock Shoulder Glenoid Screw Bone Metaglene - [id number] Implanted:Qty: 1 on 08/01/2020 by Harris Corado MD at [facility] Right: Shoulder [employer] [id number] 05/26/2025 [id number] / / [id number] Dep[employer] [id number] Cmpnt Glenoid 38mm +4mm Eccentric Delta Xtend - [id number] Implanted:Qty: 1 on 08/01/2020 by Harris Corado MD at [facility] Right: Shoulder [employer] [id number] 05/26/2024 [id number] / / [id number] Dep[employer] [id number] Global Unite 8mm 107mm Modular Shoulder Standard Stem Humeral - [id number] Implanted:Qty: 1 on 08/01/2020 by Harris Corado MD at [facility] Right: Shoulder [employer] [id number] 11/23/2028 [id number] / / [id number] Depuy [employer] [id number] Implant Shldr Xtend Modecc 155epi Por Sz1 Rt - [id number] Implanted:Qty: 1 on 08/01/2020 by Harirs Croado MD at [facility] Right: Shoulder [employer] 04/25/2030 [id number] / / [id number] Explanted Type Area Grain Elevator Motor Starter Device Identifier Shelf Expiration Date Model / Serial / Lot Depuy Orthopaed[employer] Inc [id number] Delta Xtend 1.2mm 150mm Screw Glenoid Large Guide Pin Orthopedic - [id number] Explanted:Qty: 1 on 08/01/2020 at [facility] [employer] Inc [id number] / / Description:*ADDED TO [employer] T SCREEN TO CORRECT NEW ITEM ADDED ON SUPPLY. THIS IS BUILT IN [employer] AN IMPLANT. KV Procedures Procedure Name Priority Date/Time Associated Diagnosis Comments EGFR Routine 08/04/2020 5:54 AM FIGURE MODEL POCT HEMOGLOBIN A1C Routine 07/25/2020 9 :08 AM CDT from Last 3 Months or Most Recently Relevant to Health Maintenance Results * eGFR (08/04/2020 5:54 AM FIGURE MODEL) eGFR 38 mL/min/1.7 3 m2 [facility] Comment: Interpretive Data Reference Interval Normal >/= 90 mL/min/1.73m2 Mildly decreased* 60 - 89 mL/min/1.73m2 Mildly to moderately decreased 45 - 59 mL/min/1.73m2 Moderately to severely decreased 30 - 44 mL/min/1.73m2 Severely decreased 15 - 29 mL/min/1.73m2 Kidney Failure < 15 mL/min/1.73m2 *Relative to young adult level If -Venezuelan multiply value by 1.16. Estimated glomerular filtration [...] 2016. Blood specimen (specimen) 08/04/2020 5:54 AM FIGURE MODEL 08/04/2020 6:01 AM FIGURE MODEL us Sameer Eddy MD LAB BLOOD ORDERABLES F inal Result [facility] [address] [facility] [place] [address] * (ABNORMAL) POCT hemoglobin A1c (07/25/2020 9:08 AM CDT) Hgb A1C, POC 6.6(H) 4.0 - 6.0 % [facility] Est Average Gluc POC 143 mg/dL [facility] Comment: The ADA recommends reporting an estimated Average Glucose (eAG) with all Hemoglobin A1c results using the equation derived from a study of 507 normal and diabetic adults. Minority populations were underrepresented and children were not included. (Diabetes Care 31:9776-3163, 2008). The eAG is not equivalent to a fasting glucose. Blood specimen (specimen) 07/25/2020 9:08 AM CDT 07/25/2020 9:08 AM CDT Harris Corado MD POINT OF CARE TEST ORD ERABLES Final Result [facility] Department [place] [address] from Last 3 Months or Most Recently Relevant to Health Maintenance Insurance HUMANA MEDICARE HMO HUMANA CHOICE MEDICARE O AARP MEDICARE HUMANA CHOICE MEDICARE PPO Member Subscriber Plan / Payer (Ef fective 2019-Present) Name:Maria Luz Recinos Relation to Subscriber:Self Name:Jorje Maria Luz Payer ID:[id number] Group ID:[id number] RE Type:COMMERCIAL Address: [address] [place] [phone] HUMANA CHOICE MEDICARE PPO AARP Advance Directives For more information, please contact: [phone] Documents on File Type Date Recorded Patient Brokerage Office Manager Expl anation ADVANCE DIRECTIVE 08/01/2020 7:45 AM * Full Code (Latest Code Status on File) Date Activated Date Inactivated Comments 08/01/2020 1:20 PM 08/04/2020 4:52 PM Care Teams Booth Manager Relationship Specialty [place] [address] [place] [address] PCP - General Family Medicine 07/19/24
--- OUTSIDE RECORDS SUMMARY | 2024-12-04 17:06 | XMS_ITS | Continuity of Care Document ---
Author Organization [facility] Address [address] [place] [address] Phone Care Team Providers Care Supervisor Putty And Caluking Name Role Phone Asuncion NUGENT, Mika Unavailable Unavailable Allergies, Adverse Reactions, Alerts Substance Reaction Status Criticality methadone Active No Information pravastatin Active No Information Procedures Procedure Date Video Deposition X-ray exam shoulder complete, minimum 2 views Independent Medical Examination HEATHER Pre Payment Advance Directives Directive Yes / No Effective Date File Name No Information Encounters Encounter Description Practice Location Reason(s) For Visit Diagnoses Date Provider Providers Copied on Encounter [facility], [address] [place] [address], [id number], tel:[phone] [facility] No Information 2 Asuncion Brennan. [address] [facility], [address], [id number] , [place]. tel: [phone] Independent Medical Examination HEATHER [facility], [address] [place] [address], [id number], [place] tel:[phone] [facility] right shoulder (chief complaint) Pain in right shoulder 2 Asuncion Brennan. [address] [facility], [address], [id number] , [place]. tel: [phone] [facility], [address], [place], [place], [id number], [place] tel:[phone] [facility] No Information 2 Asuncion Brennan. [address] [facility], [address], [place], [place], [id number] , [place]. tel: [phone] Family History Family Member Type Diagnosis Age At Onset Problem Family history of osteoporos is Problem Family history of Diabetes m ellitus Problem Family history of Renal dise ase Problem Family history of stroke Problem Family history of Cardiovasc ular disease Problem Family history of hypertensi on Problem Family history of Arthritis Problem Family history of Cancer, un known Payers Payer name Insurance type Covered green party ID Authoriza tion(s) No Information Social History Type Description Quantity Date Captured Comments Sex Female Smoking Status No Information Chief Complaint And Reason For Visit No Information Reason For Referral Reason For Referral No Information Plan Of Treatment Date Type Action Status Referral Ordered: X-ray exam shoulder complete, minimum 2 views RT ordered History Of Present Illness Encounter Date Complaint History Of Prese nt Illness right shoulder Maria Luz presents to the office for right shoulder complaints. Functional Status Date Functional Assessmen t No Information Instructions Date Instruction Additional Infor mation No Information Assessments Type Assessment Date No Information Patient Care Teams Name Effective Dates (start - stop) Status Members No Information
--- OUTSIDE RECORDS SUMMARY | 2024-12-04 17:06 | XMS_ITS | Encounter Summary ---
Author Organization [facility] Address [facility] [place] [address] Care Team Providers Care Nanofabrication Specialist Name Role Phone Isidro Christianson MD Unavailable [phone] Gertrude Butt MD Primary Care Provider [phone] Ann Koenig MD Primary Care Provider [phone] Corinne Huizar RN Unavailable [phone] Corinne Huizar RN Unavailable [phone] Leonardo Bach MD Unavailable Encounter Details Date Type Department Care Team (Late st Contact Info) Description 05/04/2021 PredicSis Message [facility] Patient Accounts [address] [place] [address] [facility] Financial Assistance Social History Tobacco Use Types Packs/Day Years Used Date Smoking Tobacco: Never Smokeless Tobacco: Never Alcohol Use Standard Drinks/Week Comments Yes 0 (1 standard drink = 0.6 oz pur e alcohol) socially AUDIT-C Answer Date Recorded Q1: How often do you have a drink containing alc ohol? Monthly or less 01/05/2021 Q2: How many drinks containi ng alcohol do you have on a typical day when you are drinking? 1 or 2 01/05/2021 Frequency of Binge Drinking Not on file 12/25 PHQ-2 Answer Date Recorded PHQ-2 Score - If the patient scores above 3, please move on to questions 3-9 0 01/01/2021 Comments No Sex and Gender Information Value Date Recorded Sex Assigned at Female 01/21/2021 1:31 PM CDT Legal Sex Female 6:56 PM CDT Gender Identity Female 01/21/2021 1:31 PM CDT Sexual Orientation Straight 01/21/2021 1: 31 PM CDT COVID-19 Exposure Response Date Recorded In the last month, have you been in contact with someone who was confirmed or suspected to have Coronavirus / COVID-19? No / Unsure 04/07/2021 7:45 AM CDT documented as of this encounter Plan of Treatment Upcoming Encounters Date Type Department Care Team (Late st Contact Info) Description 12/13/2024 7:00 AM CDT Office Visit [facility] - [place] [address] [place] [phone] [place] [address] [facility]. [address] [place] [address] 01/01/2025 9:30 AM CDT Appointment [facility] [address] [place] [address] [place] [address] [facility]. [address] [place] [address] 06/27/2025 8:00 AM CDT Office Visit [facility] Multispecialty Care - [facility] [address] [facility] Suite [facility] [place] [address] Matt Love MD [address] [place] [address] [place] [address] 11/28/2025 9:15 AM ACADEMIC AFFAIRS DIRECTOR Office Visit [facility] [address] [place] [phone] Isidro Christianson MD [facility]. [address] [place], [place] [address] documented as of this encounter Visit Diagnoses Not on filedocumented in this encounter Additional Health Concerns Infection Onset Date Last Indicated Resolved Time COVID-19 Rule Out 08/29/2023 08/29/2023 08/29/2023 3:16 PM ACADEMIC AFFAIRS DIRECTOR documented as of this encounter Care Teams Nanofabrication Specialist Relationship Specialty Start Date End Date Gertrude Butt MD Three [facility]. [address] [id number] PCP - General INTERNAL MEDICINE 09/11/20 12/26/22 [place] [address] [place] [address] PCP - General FAMILY PRACTICE 12/27/22 Isidro Christianson MD Three [facility]. [address] [place], [place] [address] Sprague Intermediate Accountant CARDIOVASCULAR DISEASE 02/25/16 Corinne Huizar RN [address] [place], [place] [phone] Dredge Worker (Ambulatory) REGISTERED NURSE 08/16/23 08/28/23 Corinne Huizar RN [address] [place], [place] [phone] Dredge Worker (Ambulatory) REGISTERED NURSE 08/30/23 09/21/23 [place] [address] [place], [place] [id number] OTOLARYNGOLOGY 09/28/24 09/28/25 documented as of this encounter
--- OUTSIDE RECORDS SUMMARY | 2024-12-04 17:06 | XMS_ITS | Encounter Summary ---
Author Organization [facility] Address [address] [place] [address] Care Team Providers Care Screwhead Polisher Name Role Phone Isidro Christianson MD Unavailable [phone] Ann Koenig MD Primary Care Provider [phone] Leonardo Bach MD Unavailable Encounter Details Date Type Department Care Team (Latest Contact Info) Description 12/03/2024 Travel Social History Tobacco Use Types Packs/Day Years Used Date Smoking Tobacco: Never Smokeless Tobacco: Never Alcohol Use Standard Drinks/Week Comments Not Currently 0 (1 standard drink = 0.6 oz pur e alcohol) Not in many years OASIS D0700: Social Isolation Answer Da te Recorded Frequency of experiencing loneliness or isolatio n Never 09/30/2023 OASIS A1250: Transportation Answer Date Recorded Lack of Transportation (Medical) No 09/30/2023 Lack of Transportation (Non-Medical) No 09/30/2023 Patient Unable or Declines to Respond No 09/30/2023 OASIS B1300: Health Literacy Answer Franklyn e Recorded Frequency of needing help to read materials from doctor or pharmacy Never 09/30/2023 [facility] Utilities Answer Date Recorded In the past 12 months has th e electric, gas, oil, or water company threatened to shut off services in your home? No 08/29/2023 Humiliation, Afraid, Rape, and Kick questionnair e Answer Date Recorded Within the last year, have y ou been afraid of your partner or ex-partner? No 08/29/2023 Within the last year, have y ou been humiliated or emotionally abused in other ways by your partner or ex-partner? No Within the last year, have y ou been kicked, hit, slapped, or otherwise physically hurt by your partner or ex-partner? No 08/29/2023 Within the last year, have y ou been raped or forced to have any kind of sexual activity by your partner or ex-partner? No 08/29/2023 AUDIT-C Answer Date Recorded Q1: How often do you have a drink containing alc ohol? Monthly or less 01/05/2021 Q2: How many drinks containi ng alcohol do you have on a typical day when you are drinking? 1 or 2 01/05/2021 Frequency of Binge Drinking Not on file 12/25 Overall Financial Resource Strain (CARDIA) Answe r Date Recorded How hard is it for you to pa y for the very basics like food, housing, medical care, and heating? Not hard at all 08/29/2023 PHQ-2 Answer Date Recorded Patient Health Questionnaire-2 Score 0 10/04/2024 [facility] - Occupational Stress Questionnaire Answer Date Recorded Do you feel stress - tense, restless, nervous, or anxious, or unable to sleep at night because your mind is troubled all the time - these days? Not at all 08/16/2023 Exercise Vital Sign Answer Date Recorde d On average, how many days pe r week do you engage in moderate to strenuous exercise (like a brisk walk)? 0 days 08/16/2023 On average, how many minutes do you engage in exercise at this level? 0 min 08/16/2023 Hunger Vital Sign Answer Date Recorded Within the past 12 months, y ou worried that your food would run out before you got the money to buy more. Never true 08/29/20 23 Within the past 12 months, t he food you bought just didn't last and you didn't have money to get more. Never true 08/29/2023 PRAPARE - Transportation Answer Date Re corded In the past 12 months, has l ack of transportation kept you from medical appointments or from getting medications? No 12/2022 In the past 12 months, has l ack of transportation kept you from meetings, work, or from getting things needed for daily living? No 08/29/2023 Housing Stability Vital Sign Answer Franklyn e Recorded In the last 12 months, was t here a time when you were not able to pay the mortgage or rent on time? No 08/29/2023 In the last 12 months, how many places have you lived? 1 08/29/2023 In the last 12 months, was t here a time when you did not have a steady place to sleep or slept in a assisted (including now)? No 08/29/2023 Comments No Sex and Gender Information Value Date Recorded Sex Assigned at Female 01/21/2021 1:31 PM CDT Legal Sex Female 6:56 PM CDT Gender Identity Female 01/21/2021 1:31 PM CDT Sexual Orientation Straight 01/21/2021 1: 31 PM CDT Occupation Industry Job Start Date Job End Date Not on file Not on file Not on file Not on file documented as of this encounter Functional Status * Are you deaf or do you have serious difficulty hearing Answer Date of Assessment Author Status No 08/29/2023 7:00 PM Keshawn Beaver RN Active * Are you blind or do you have serious difficulty seeing, even when wearing glasses? Answer Date of Assessment Author Status No 08/29/2023 7:00 PM Keshawn Beaver RN Active * Do you have serious difficulty walking or climbing stairs? Answer Date of Assessment Author Status No 08/29/2023 7:00 PM Keshawn Beaver RN Active * Do you have difficulty dressing or bathing? Answer Date of Assessment Author Status No 08/29/2023 7:00 PM Keshawn Beaver RN Active * Because of a physical, mental, or emotional condition, do you have difficulty doing errands alone such as visiting a doctor's office or shopping? Answer Date of Assessment Author Status No 08/29/2023 7:00 PM Keshawn Beaver RN Active documented as of this encounter Mental Status * Because of a physical, mental, or emotional condition, do you have serious difficulty concentrating, remembering, or making decisions? Answer Entry Date Author Status No 08/29/2023 7:00 PM HOUSEHOLD CHORES Keshawn Lopez RN Active documented in this encounter Plan of Treatment Upcoming Encounters Date Type Department Care Team (Late st Contact Info) Description 12/13/2024 7:00 AM CDT Office Visit [facility] - [place] [address] [place] [address] [place] [address] [place] [address] 01/01/2025 9:30 AM CDT Appointment [facility] [address] [place] [address] [place] [address] [place] [address] 06/27/2025 8:00 AM CDT Office Visit [facility] Multispecialty Care - [facility] [address] [place] [address] Matt Love MD [address] [facility] [address] [place] [address] 11/28/2025 9:15 AM HOUSEHOLD CHORES Office Visit [facility] [address] [place] [address] Isidro Christianson MD [facility] [address] [place] [address] documented as of this encounter Goals Goal Patient Goal Type Associated Problems Recent Progress Patient-Stated? Author Family - family caregiver with be involved in care transitions and discharge planning Lifestyle On track( 023 11:48 AM HOUSEHOLD CHORES) No Kehinde Retana RN documented as of this encounter Visit Diagnoses Not on filedocumented in this encounter Additional Health Concerns Assessment Noted Time PHQ-9 Depression Total Score: 3 10/04/19 25 9:29 AM HOUSEHOLD CHORES documented as of this encounter Care Teams Screwhead Polisher Relationship Specialty [place] [address] [place] [address] PCP - General FAMILY PRACTICE 12/27/22 Isidro Christianson MD Three [facility]. [address] [place] [address] Magnet Cytopathologist CARDIOVASCULAR DISEASE 02/25/16 [place] [address] [place] [address] OTOLARYNGOLOGY 09/28/24 09/28/25 documented as of this encounter
--- OUTSIDE RECORDS SUMMARY | 2024-12-04 17:06 | XMS_ITS | Encounter Summary ---
Author Organization [facility] Address [address] [place] [address] Care Team Providers Care Dial Brusher Name Role Phone Isidro Christianson MD Unavailable [phone] Ann Koenig MD Primary Care Provider [phone] Leonardo Bach MD Unavailable Encounter Details Date Type Department Care Team (Late st Contact Info) Description 12/03/2024 10:27 AM T Hospital Encounter [facility] [address] [place] [address] Gerber Maher MD [address] [place] [address] Arrived Social History Tobacco Use Types Packs/Day Years [...] materials from doctor or pharmacy Never 09/30/2023 [facility] Utilities Answer Date Recorded In the past 12 months has e electric, gas, oil, or water company [...] Recorded Patient Health Questionnaire-2 Score 0 10/04/2024 [facility] - [...] place to sleep or slept in a longterm (including now)? No 08/29/2023 Comments No Sex [...] Assessment Author Status No 08/29/2023 7:00 PM CAB DRIVER Keshawn Lpoez RN Active documented as of this encounter Mental Status * Because of a physical, mental, or emotional condition, do you have serious difficulty concentrating, remembering, or making decisions? Answer Entry Date Author Status No 08/29/2023 7:00 PM CAB DRIVER Keshawn Lopez RN Active documented in this encounter Plan of Treatment Upcoming Encounters Date Type Department Care Team (Late st Contact Info) Description 12/13/2024 7:00 AM CDT Office Visit [facility] [place] [address] [place] [phone] [place] [address] [place] [address] 01/01/2025 9:30 AM CDT Appointment [facility] [address] [place] [address] [place] [address] [place] [address] 06/27/2025 8:00 AM CDT Office Visit [facility] Multispecialty Care - [facility] [address] [facility] [place] [address] Matt Love MD 3rd [facility] [address] [place] [address] 11/28/2025 9:15 AM CAB DRIVER Office Visit [facility] [address] [place] [address] Isidro Christianson MD Three [facility]. [address] [place] [address] documented as of this encounter Goals Goal Patient Goal Type Associated Problems Recent Progress Patient-Stated? Author Family - family caregiver with be involved in care transitions and discharge planning Lifestyle On track( 023 11:48 AM CAB DRIVER) No Kehinde Retana RN documented as of this encounter Procedures Procedure Name Priority Date/Time Associated Diagnosis Comments BASIC METABOLIC PANEL Routine 12/03/2024 10:36 AM CDT Encounter for therapeutic drug monitoring HEPATIC FUNCTION PANEL Routine 12/03/2024 10:36 AM CDT Encounter for therapeutic drug monitoring CBC W/DIFF AUTOMATED Routine 12/03/2024 10:36 AM CDT Encounter for therapeutic drug monitoring documented in this encounter Results * HEPATIC FUNCTION PANEL (12/03/2024 10:36 AM CDT) TOTAL PROTEIN S/P/B 6.9 6.4 - 8.2 G/DL 12/03/2024 11:50 AM CDT [facility] ALBUMIN S/P/B 3.4 3.4 - 5.0 G/DL 12/03/2024 11:50 AM T [facility] BILIRUBIN TOTAL S/P/B 0.5 0.2 - 1.2 MG/DL 12/03/2024 11:50 AM T [facility] BILIRUBIN DIRECT S/P/B 0.1 0.0 - 0.20 MG/DL 12/03/2024 11:50 AM T [facility] BILIRUBIN INDIRECT S/P/B 0.4 0.0 - 0.9 MG/DL 12/03/2024 11:50 AM T [facility] ALKALINE PHOSPHATASE S/P/B 129 50 - 136 U/L 12/03/2024 11:50 AM CDT [facility] AST 15 15 - 37 U/L 12/03/2024 11:50 AM T [facility] ALT 21 14 - 55 U/L 12/03/2024 11:50 AM CDT [facility] A/G RATIO 1.0 1.0 - 2.0 RATIO 12/03/2024 11:50 AM CDT [facility] 12/03/2024 10:3 6 AM CDT Gerber Maher MD LABORATORY Final Result [facility] [address] [place] [address], [place] [phone] * (ABNORMAL) BASIC METABOLIC PANEL (12/03/2024 10:36 AM CDT) GLUCOSE 126(H) 70 - 99 MG/DL 12/03/2024 11:50 AM CDT [facility] BUN 15 7 - 18 MG/DL 12/03/2024 11:50 AM CDT [facility] CREATININE S/P/B 1.56(H) 0.55 - 1.02 MG/DL 12/03/2024 11:50 AM CDT [facility] SODIUM S/P/B 141 136 - 145 MMOL/L 12/03/2024 11:50 AM CDT [facility] POTASSIUM S/P/B 4.1 3.5 - 5.1 MMOL/L 12/03/2024 11:50 AM CDT [facility] CHLORIDE S/P/B 103 100 - 108 MMOL/L 12/03/2024 11:50 AM CDT [facility] CO2 28.7 21 - 32 MMOL/L 12/03/2024 11:50 AM CDT [facility] CALCIUM S/P/B 9.5 8.5 - 10.1 MG/DL 12/03/2024 11:50 AM CDT [facility] ANION GAP 9.3 5 - 15 MMOL/L 12/03/2024 11:50 AM CDT [facility] BUN CREATININE RATIO 9.6 6 - 26 12/03/2024 11:50 AM CDT [facility] GFR ESTIMATE 34(L) >90 ML/MIN/1.7 3 M2 12/03/2024 11:50 AM CDT [facility] Comment: NOTE: eGFR is not calculated for patients <18 years of age. This is an estimated GFR calculation using the new CKD EPI creatinine equation without race and so does not require a correction factor for race. This estimated GFR should not be used for calculating drug doses. 12/03/2024 10:3 6 AM CDT Gerber Maher MD LABORATORY Final Result [facility] [address] [place] [address], * (ABNORMAL) CBC W/DIFF AUTOMATED (12/03/2024 10:36 AM CDT) WBC 7.34 4.4 - 11.0 x10'3/uL 12/03/2024 10:56 AM CDT [facility] RBC 3.26(L) 4.50 - 5.10 x10'6/uL 12/03/2024 10:56 AM CDT [facility] HGB 11.1(L) 12.3 - 15.3 G/DL 12/03/2024 10:56 AM CDT [facility] HCT 33.8(L) 35.9 - 44.6 % 12/03/2024 10:56 AM CDT [facility] MCV 103.7(H) 80.0 - 96.0 FL 12/03/2024 10:56 AM CDT [facility] MCH 34.0(H) 25.3 - 30.9 PG 12/03/2024 10:56 AM CDT [facility] MCHC 32.8 31.0 - 34.1 G/DL 12/03/2024 10:56 AM CDT [facility] RDW 14.9 12.4 - 15.1 % 12/03/2024 10:56 AM CDT [facility] PLT 336 151 - 353 x10'3/uL 12/03/2024 10:56 AM CDT [facility] MPV 9.6 9.6 - 12.0 FL 12/03/2024 10:56 AM T [facility] RBC MORPHOLOGY NORMAL 12/03/2024 10:56 AM T [facility] PLT MORPH. NORMAL 12/03/2024 10:56 AM T [facility] WBC MORPHOLOGY NORMAL 12/03/2024 10:56 AM T [facility] LYMPHOCYTES % 35.0 15.8 - 45.0 % 12/03/2024 10:56 AM T [facility] NEUTROPHILS % 54.0 42.1 - 71.9 % 12/03/2024 10:56 AM T [facility] MONOCYTES % 6.5 5.7 - 12.5 % 12/03/2024 10:56 AM T [facility] EOSINOPHILS 3.1 0.0 - 5.6 % 12/03/2024 10:56 AM T [facility] BASOPHILS 1.0 0.0 - 1.3 % 12/03/2024 10:56 AM T [facility] ABS. NEUTROPHILS 3.96 1.40 - 6.00 x10'3/uL 12/03/2024 10:56 AM CDT [facility] IMMATURE GRANS % 0.4 0.0 - 0.5 % 12/03/2024 10:56 AM CDT [facility] ABS. LYMPHOCYTES 2.57 0.80 - 4.70 x10'3/uL 12/03/2024 10:56 AM CDT [facility] 12/03/2024 10:3 6 AM CDT Gerber Maher MD LABORATORY Final Result [facility] [address] [place] [address], documented in this encounter Visit Diagnoses Diagnosis Encounter for therapeutic drug monitoring documented in this encounter Additional Health Concerns Assessment Noted Time PHQ-9 Depression Total Score: 3 10/04/19 25 9:29 AM CAB DRIVER documented as of this encounter Care Teams Dial Brusher Relationship Specialty [place] [address] [facility] [place] [address] PCP - General FAMILY PRACTICE 12/27/22 Isidro Christianson MD Three [facility]. [address] [place] [address] Wacissa Pearl Glue Drier CARDIOVASCULAR DISEASE 02/25/16 [place] [address] [place] [address] OTOLARYNGOLOGY 09/28/24 09/28/25 documented as of this encounter
--- OUTSIDE RECORDS SUMMARY | 2024-12-04 17:06 | XMS_ITS | Encounter Summary ---
Author Organization [facility] Address [facility] [place] [address] Care Team Providers Care Prepress Operator Name Role Phone Isidro Christianson MD Unavailable [phone] Gertrude Butt MD Primary Care Provider [phone] Ann Koenig MD Primary Care Provider [phone] Corinen Huizar RN Unavailable [phone] Corinne Huizar RN Unavailable [phone] Leonardo Bach MD Unavailable Encounter Details Date Type Department Care Team (Late st Contact Info) Description 03/09/2022 [facility] Message Enc [facility] THREE [address] [address] [place] Provider lab results Social History Tobacco Use Types Packs/Day Years [...] please move on to questions 3-9 0 01/11/2022 Comments No Sex and Gender Information Value Date Recorded Sex Assigned at Female 01/21/2021 1:31 PM CDT Legal Sex Female 6:56 PM CDT Gender Identity Female 01/21/2021 1:31 PM CDT Sexual Orientation Straight 01/21/2021 1: 31 PM CDT Occupation Industry Job Start Date Job End Date Not on file Not on file Not on file Not on file COVID-19 Exposure Response Date Recorded In the last 10 days, have yo u been in contact with someone who was confirmed or suspected to have Coronavirus/COVID-19? No / Unsure 03/08/2022 8:28 AM CDT documented as of this encounter Plan of Treatment Upcoming Encounters Date Type Department Care Team (Late st Contact Info) Description 12/13/2024 7:00 AM CDT Office Visit [facility] Family & Internal Medicine - [address] [phone] [place] [address] [facility] [place] [address] 01/01/2025 9:30 AM CDT Appointment [facility] [address] [place] [address] [place] [address] [facility] [place] [address] 06/27/2025 8:00 AM CDT Office Visit [facility] Multispecialty Care - [address] [facility] [place] [phone] Matt Love MD 3rd [facility] [address] [place] [address] 11/28/2025 9:15 AM HUMAN RESOURCES OPERATIONS MANAGER [facility] [address] [place] [address] Isidro Christianson MD [facility]. [facility] [address] [place] [address] documented as of this encounter Visit Diagnoses Not on filedocumented in this encounter Additional Health Concerns Infection Onset Date Last Indicated Resolved Time COVID-19 Rule Out 08/29/2023 08/29/2023 08/29/2023 3:16 PM HUMAN RESOURCES OPERATIONS MANAGER Assessment Noted Time PHQ-9 Depression Total Score: 0 12/15/19 8:07 AM CDT documented as of this encounter Care Teams Prepress Operator Relationship Specialty Start Date End Date Gertrude Butt MD [facility]. [address] [address] PCP - General INTERNAL MEDICINE 09/11/20 12/26/22 [place] [address] [facility] [place] [address] PCP - General FAMILY PRACTICE 12/27/22 Isidro Christianson MD [facility]. [facility] [address] [place] [address] [place] Tumble Tailstock Turret Lathe Operator CARDIOVASCULAR DISEASE 02/25/16 Corinne Huizar, RN [address] [place] [address] International Sourcing Manager (Ambulatory) REGISTERED NURSE 08/16/23 08/28/23 Corinne Huizar RN [address] [place] [address] International Sourcing Manager (Ambulatory) REGISTERED NURSE 08/30/23 09/21/23 [place] [address] [place] [address] OTOLARYNGOLOGY 09/28/24 09/28/25 documented as of this encounter
--- OUTSIDE RECORDS SUMMARY | 2024-12-04 17:06 | XMS_ITS | Encounter Summary ---
Author Organization [facility] Address On license of [facility] [place] [address] Care Team Providers Care Casino Supervisor Name Role Phone Isidro Christianson MD Unavailable [phone] Gertrude Butt MD Primary Care Provider [phone] Ann Koenig MD Primary Care Provider [phone] Corinne Huizar RN Unavailable [phone] Corinne Huizar RN Unavailable [phone] Leonardo Bach MD Unavailable Encounter Details Date Type Department Care Team (Late st Contact Info) Description 03/23/2022 Hospital [facility] Only [facility] Blanking Press Adjuster [address] [address] Saeid Treviño MD,PHD Social History Tobacco Use Types Packs/Day Years [...] suspected to have Coronavirus/COVID-19? No / Unsure 03/24/2022 8:42 AM CDT documented as of this encounter Plan of Treatment Upcoming Encounters Date Type Department Care Team (Late st Contact Info) Description 12/13/2024 7:00 AM CDT Office Visit [facility] Family & Internal Medicine - [address] [address] [place] [address] [facility]. [address] [place] [address] 01/01/2025 9:30 AM CDT Appointment [facility] [address] [place] [address] [place] [address] [facility]. [address] [place] [address] 06/27/2025 8:00 AM CDT Office Visit [facility] Multispecialty Care - [address] Suite [facility] [place] [phone] Matt Love MD [address] [place] [address] [address] [place] [address] 11/28/2025 9:15 AM CLINICAL INFORMATICS MANAGER [facility] [address] [place] [address] Isidro Christianson MD [facility]. [facility] [address] [place] [address] documented as of this encounter Visit Diagnoses Not on filedocumented in this encounter Additional Health Concerns Infection Onset Date Last Indicated Resolved Time COVID-19 Rule Out 08/29/2023 08/29/2023 08/29/2023 3:16 PM CLINICAL INFORMATICS MANAGER Assessment Noted Time PHQ-9 Depression Total Score: 0 12/15/19 8:07 AM CDT documented as of this encounter Care Teams Casino Supervisor Relationship Specialty Start Date End Date Gertrude Butt MD [facility]. [address] [address] PCP - General INTERNAL MEDICINE 09/11/20 12/26/22 [place] [address] [facility]. [address] [place] [address] PCP - General FAMILY PRACTICE 12/27/22 Isidro Christianson MD [facility]. [facility] [address] [place] [address] Shelbiana Exam Proctor CARDIOVASCULAR DISEASE 02/25/16 Corinne Huizar, RN [address] [place] [address] Reversal Print Inspector (Ambulatory) REGISTERED NURSE 08/16/23 08/28/23 Corinne Huizar RN [address] [place] [address] Reversal Print Inspector (Ambulatory) REGISTERED NURSE 08/30/23 09/21/23 [place] [address] [place] [address] OTOLARYNGOLOGY 09/28/24 09/28/25 documented as of this encounter
--- OUTSIDE RECORDS SUMMARY | 2024-12-04 17:06 | XMS_ITS | Encounter Summary ---
Author Organization [facility] Address Counts include 234 beds at the [facility] [place] [address] Care Team Providers Care Potato Chip Maker Name Role Phone Gertrude Butt MD Primary Care Provider [phone] Isidro Christianson MD Unavailable [phone] Gertrude Butt MD Primary Care Provider [phone] Ann Koenig MD Primary Care Provider [phone] Corinne Huizar RN Unavailable [phone] Corinne Huizar RN Unavailable [phone] Leonardo Bach MD Unavailable Encounter Details Date Type Department Care Team (Late st Contact Info) Description 07/14/[address] [facility] [place], [place] [phone] Quinton Myers MD 3 [facility] Partha [address] [place] [id number] Social History Tobacco Use Types Packs/Day Years Used Date Smoking Tobacco: Never Smokeless Tobacco: Never Alcohol Use Standard Drinks/Week Comments Yes 0 (1 standard drink = 0.6 oz pur e alcohol) socially PHQ-2 Answer Date Recorded PHQ-2 Score 0 08/23/2019 Comments No Sex and Gender Information Value [...] have Coronavirus / COVID-19? No / Unsure 07/15/2020 8:38 AM CDT documented as of this encounter Plan of Treatment Upcoming Encounters Date Type Department Care Team (Late st Contact Info) Description 12/13/2024 7:00 AM CDT Office Visit [facility] Family & Internal Medicine - [place] [address] [place] [address] [place] [address] [facility]. [address] [place] [address] 01/01/2025 9:30 AM CDT Appointment [facility] [address] [place] [address] [place] [address] [facility]. [address] [place] [address] 06/27/2025 8:00 AM CDT Office Visit [facility] Mult[facility] - [facility] [address] [facility] [address] [place] [address] Matt Love MD 3rd [facility] [address] [place] [address] 11/28/2025 9:15 AM SQL APPLICATION DEVELOPER Office Visit [facility] [address] [place] [phone] Isidro Christianson MD Three [facility]. [address] [address] documented as of this encounter Results * PRE-SURGICAL/PRE-PROCEDURE CORONAVIRUS (COVID 19) (07/21/2020 9:50 AM CDT) CORONAVIRUS SARS COV 2 PCR (RESP) NOT DETECTED NOT DETECTED 07/22/2020 8:25 PM CDT [facility] Comment: A Not Detected (negative) test result for this test means that SARS- CoV-2 RNA was not present in the specimen above the limit of detection. A negative result does not rule out the possibility of COVID-19 and should not be used as the sole basis for treatment or patient management decisions. If COVID-19 is still suspected, based on exposure history together with other clinical findings, re-testing should be considered in consultation with public health authorities. Laboratory test results should always be considered in the context of clinical observations and epidemiological data in making a final diagnosis and patient management decisions. Please review the Fact Sheets and FDA authorized labeling available for health care providers and patients using the following websites: https://www.Fixya.com/home/Covid-19/HCP/QuestIVD/fact- sheet.html https://www.Fixya.VirtueBuild/home/Covid-19/Patients/ QuestIVD/fact-sheet.html This test has been authorized by the FDA under an Emergency Use Authorization (EUA) for use by authorized laboratories. Due to the current public health emergency, [facility] is receiving a high volume of samples from a wide variety of swabs and media for COVID-19 testing. In order to serve patients during this public health crisis, samples from appropriate clinical sources are being tested. Negative test results derived from specimens received in non-commercially manufactured viral collection and transport media, or in media and sample collection kits not yet authorized by FDA for COVID-19 testing should be cautiously evaluated and the patient potentially subjected to extra precautions such as additional clinical monitoring, including collection of an additional specimen. Methodology: Nucleic Acid Amplification Test (NAAT) includes RT-PCR or TMA Additional information about COVID-19 can be found at the [facility] website: www.Glassbeam.VirtueBuild/Covid19. Test performed at [facility] [place] [id number] [place], [place] [address] [address] Director: ELSY KOTHARI DO,MPH FIRST TEST NO 07/21/2020 12:20 PM CDT [facility] EMPLOYED IN HEALTHCARE NO 07/21/2020 12:20 PM CDT [facility] SYMPTOMATIC DEFINED BY CDC NO 07/21/2020 12:20 PM CDT [facility] DATE OF SYMPTOM ONSET NO 07/21/2020 1:12 PM CDT [facility] HOSPITALIZATION STATUS NO 07/21/2020 12:20 PM CDT [facility] PATIENT IN ICU NO 07/21/2020 12:20 PM CDT [facility] RESIDENT OF [facility] NO 07/21/2020 12:20 PM CDT [facility] NOT 07/21/2020 1:12 PM CDT [facility] PATIENT'S RACE WHITE OR 07/21/2020 12:20 PM CDT [facility] ETHNICITY NONHISPANIC 07/21/2020 12:20 PM CDT [facility] SOURCE (QST) NASOPHARYNGEAL SWAB 07/21/2020 12:20 PM CDT [facility] NASOPHARYNGEAL SWAB / Unknown 07/21/2020 9:50 AM CDT Quinton Myers MD MICROBIOLOGY - GENERAL ORDERABLE S Final Result [facility] [address] [place] [address], [facility] [address] [facility] [place] [address], documented in this encounter Visit Diagnoses Diagnosis Dysphagia- Primary Dysphagia, unspecified documented in this encounter Additional Health Concerns Infection Onset Date Last Indicated Resolved Time COVID-19 Rule Out 07/21/2020 07/21/202007/22/2020 8:25 PM CDT COVID-19 Rule Out 01/06/2021 01/06/2021 01/07/2021 5:00 PM CDT COVID-19 Rule Out 08/29/2023 08/29/2023 08/29/2023 3:16 PM SQL APPLICATION DEVELOPER documented as of this encounter Care Teams Potato Chip Maker Relationship Specialty Start Date End Date Gertrude Butt MD PCP - General INTERNAL MEDICINE 02/25/16 09/10/20 Gertrude Butt MD [facility]. [address] [address] PCP - General INTERNAL MEDICINE 09/11/20 12/26/22 [place] [address] [facility]. [address] [place] [id number] PCP - General FAMILY PRACTICE 12/27/22 Isidro Christianson MD [facility]. [address] [id number] [place] Manager Vehicle CARDIOVASCULAR DISEASE 02/25/16 Corinne Huizar RN [address] [place] [address] Customer Marketing Intern (Ambulatory) REGISTERED NURSE 08/16/23 08/28/23 Corinne Huizar RN [address] [place], [place] [address] Customer Marketing Intern (Ambulatory) REGISTERED NURSE 08/30/23 09/21/23 [place] [address] [place] [address] OTOLARYNGOLOGY 09/28/24 09/28/25 documented as of this encounter
--- OUTSIDE RECORDS SUMMARY | 2024-12-04 17:06 | XMS_ITS | Referral Summary ---
Author Organization [facility] Address [address] [place] [address] Care Team Providers Care Automotive Fleet Supervisor Name Role Phone nAn Koenig MD Primary Care Provider [phone] Encounters Date Type Department Care Team Description 10/09/2024 12:00 PM STORE SHOPPER Office Visit [facility] Otolaryngology [address] [facility] [address]st [address], [address] [place] [address] Leonardo Bach II, MD Closed fracture of nasal bone, initial encounter (Primary Dx) from Last 3 Months Allergies Active Allergy Reactions Criticality Noted Date Comments Methadone Dizziness,Muscle pain,Other (See comments) High 08/18/2015 Slurred speech Dlpvfzk-Wfm-Pqs Reductase Inhibitors Muscle pain Medium 03/27/2019 Medications [...] (07/14/2020): Added automatically from request for surgery [id number] Shoulder arthritis 07/14/2020 Overview (07/14/2020): Added automatically from request for surgery [id number] MARIE (dyspnea on exertion) 07/07/2020 Metabolic syndrome 07/07/2020 Physical deconditioning 07/07/2020 Restrictive lung disease 07/07/2020 Dysphagia 06/24/2020 Overview (12/22/2020): Added automatically from request for surgery [id number] Gastrointestinal hemorrhage associated with anorectal source 06/24/2020 Overview (12/22/2020): Added automatically from request for surgery [id number] Essential hypertension 02/06/2019 GERD (gastroesophageal reflux disease) 9 Right hip pain 07/12/2018 Acute upper respiratory infection 06/26/2018 Biceps tendon rupture, proximal 01/31/2018 Wheezing 01/10/2018 Tear of medial meniscus of right knee 12/13/2017 Lytic lesion of bone on x-ray 12/01/2017 Fall, accidental 11/14/2017 Knee pain 11/07/2017 Wears glasses 10/17/2017 Shoulder pain, right 07/20/2017 Overview (02/06/2019): Annotation - [id number]: Dx 2012 Right shoulder pain 07/20/2017 Overview (12/22/2020): Annotation - [id number]: Dx 2012 Added automatically from request for surgery [id number] Class 3 severe obesity in adult 07/04/2017 Chest pain due to myocardial ischemia 04/25/2017 Dyslipidemia 04/25/2017 Unsteady gait 01/11/2017 Tendinitis, calcific, shoulder 01/11/2017 Shoulder arthritis 01/11/2017 Overview (12/22/2020): Added automatically from request for surgery [id number] Posterior tibial tendonitis 11/19/2016 Neck pain 06/09/2016 NAY on CPAP 06/09/2016 Overview (02/06/2019): Annotation - [id number]: 10/18/16 sleep titration study 12 mmhg Osteoporosis [...] on file Legal Sex Female 12:35 AM STORE SHOPPER Gender Identity Female 09/08/2020 3:29 PM STORE SHOPPER Sexual Orientation Choose not to disclose 2019 3:38 PM STORE SHOPPER Last Filed Vital Signs Vital Sign Reading Time Taken Comments Blood Pressure 116/52 08/04/2020 6:59 AM STORE SHOPPER Pulse 79 08/04/2020 6:59 AM STORE SHOPPER Temperature 36.2 C (97.1 F) 08/04/2020 6:59 AM STORE SHOPPER Respiratory Rate 18 08/04/2020 6:59 AM STORE SHOPPER Oxygen Saturation 92% 08/04/2020 6:59 AM STORE SHOPPER Inhaled Oxygen Concentration - - Weight 95.7 kg (211 lb) 10/09/2024 4:24 PM STORE SHOPPER Height 157.5 cm (5' 2 ) 10/09/2024 4:24 PM STORE SHOPPER Body Mass Index 38.59 10/09/2024 4:24 PM STORE SHOPPER Plan of Treatment Not on file Medical Devices Implanted Type Area Manager Client Device Identifier Shelf Expiration Date Model / Serial / Lot Depuy Orthopaed[employer] Inc [id number] Delta Xtend 38mm Shoulder +3mm Standard Cup Humeral Polyethylene Latex Free - Sna - [id number] Implanted:Qty: 1 on 08/01/2020 by Harris Corado MD at [facility] Other - see comments Depuy [employer]ed[employer] [id number] 04/25/2025 [id number] / NA / [id number] Depuy S[employer] [id number] Metaglene 10mm Long Peg Fixation - [id number] Implanted:Qty: 1 on 08/01/2020 by Harris Corado MD at [facility] Right: Shoulder [employer]uy [employer] [id number] 06/25/2025 [id number] / / [id number] Depuy Orth[employer]ed[employer] [id number] Delta Xtend 4.5mm 36mm Lock Shoulder Glenoid Screw Bone Metaglene - [id number] Implanted:Qty: 1 on 08/01/2020 by Harris Corado MD at [facility] Right: Shoulder [employer]uy [employer]ed[employer] [id number] 04/25/2025 [id number] / / [id number] Depuy [employer] Inc [id number] Delta Xtend 4.5mm 36mm Lock Shoulder Glenoid Screw Bone Metaglene - [id number] Implanted:Qty: 1 on 08/01/2020 by Harris Corado MD at [facility] Right: Shoulder [employer]uy [employer] [id number] 05/26/2025 [id number] / / [id number] Depuy Orth[employer]ed[employer] Inc [id number] Cmpnt Glenoid 38mm +4mm Eccentric Delta Xtend - [id number] Implanted:Qty: 1 on 08/01/2020 by Harris Corado MD at [facility] Right: Shoulder [employer]uy Orth[employer] Inc [id number] 05/26/2024 [id number] / / [id number] Depuy Orth[employer]ed[employer] [id number] Global Unite 8mm 107mm Modular Shoulder Standard Stem Humeral - [id number] Implanted:Qty: 1 on 08/01/2020 by Harris Corado MD at [facility] Right: Shoulder [employer] [id number] 11/23/2028 [id number] / / [id number] Depuy Orth[employer]ed[employer] Inc [id number] Implant Shldr Xtend Modecc 155epi Por Sz1 Rt - [id number] Implanted:Qty: 1 on 08/01/2020 by Harris Corado MD at [facility] Right: Shoulder [employer] 04/25/2030 [id number] / / [id number] Explanted Type Area Manager Client Device Identifier Shelf Expiration Date Model / Serial / Lot Depuy Orthopaedics Inc [id number] Delta Xtend 1.2mm 150mm Screw Glenoid Large Guide Pin Orthopedic - [id number] Explanted:Qty: 1 on 08/01/2020 at [facility] Depuy [employer]ed[employer] Inc [id number] / / Description:*ADDED TO [employer] T SCREEN TO CORRECT NEW ITEM ADDED ON SUPPLY. THIS IS BUILT IN [employer] AN IMPLANT. KV Procedures Procedure Name Priority Date/Time Associated Diagnosis Comments EGFR Routine 08/04/2020 5:54 AM STORE SHOPPER POCT HEMOGLOBIN A1C Routine 07/25/2020 9 :08 AM CDT from Last 3 Months or Most Recently Relevant to Health Maintenance Results * eGFR (08/04/2020 5:54 AM STORE SHOPPER) eGFR 38 mL/min/1.7 3 m2 CRYSTAL AMBROCIO Comment: Interpretive Data Reference Interval Normal >/= 90 mL/min/1.73m2 Mildly decreased* 60 - 89 mL/min/1.73m2 Mildly to moderately decreased 45 - 59 mL/min/1.73m2 Moderately to severely decreased 30 - 44 mL/min/1.73m2 Severely decreased 15 - 29 mL/min/1.73m2 Kidney Failure < 15 mL/min/1.73m2 *Relative to young adult level If -Luxembourger multiply value by 1.16. Estimated glomerular filtration [...] 2016. Blood specimen (specimen) 08/04/2020 5:54 AM STORE SHOPPER 08/04/2020 6:01 AM STORE SHOPPER us Sameer Eddy MD LAB BLOOD ORDERABLES F inal Result Performing Organization Address [facility] Co de Phone Number [facility] [address] [facility] Department [employer] [place] [address] * (ABNORMAL) POCT hemoglobin A1c (07/25/2020 9:08 [...] and children were not included. (Diabetes Care 31:2422-8105, 2008). The eAG is not equivalent to a fasting glucose. Blood specimen (specimen) 07/25/2020 9:08 AM CDT 07/25/2020 9:08 AM CDT Harris Corado MD POINT OF CARE TEST ORD ERABLES Final Result Performing Organization Address City/[facility]/ZIP Co de Phone Number [facility] [address] [facility] [place] [address] from Last 3 Months or Most Recently Relevant to Health Maintenance Insurance [facility] MEDICARE HMO [facility] CHOICE MEDICARE O MEDICARE [employer] CHOICE MEDICARE PPO AARP [employer] CHOICE MEDICARE PPO AARP Advance Directives For more information, please contact: [phone] Documents on File Type Date Recorded Patient Brick Tender Expl anation ADVANCE DIRECTIVE 08/01/2020 7:45 AM * Full Code (Latest Code Status on File) Date Activated Date Inactivated Comments 08/01/2020 1:20 PM 08/04/2020 4:52 PM Care Teams Automotive Fleet Supervisor Relationship Specialty [place] [address] [place] [address] PCP - General Family Medicine 07/19/24
--- OUTSIDE RECORDS SUMMARY | 2024-12-04 17:07 | XMS_ITS | Clinical Summary ---
Author Organization [facility] Address [address] [place] [address] Care Team Providers Care Coin Machine Collector Name Role Phone Unavailable Primary Care Provider Unavailabl e Source Comments [facility],non-owned Affiliates and Associated Physician Practices is amultiple site organization consisting of ambulatory clinics and hospital sitesin [place], [place], [place] and [place]. This disclosure is being madepursuant to the Care Everywhere program and may not contain all information available regarding this patient. Last updated 18.[facility] [employer] Social History Tobacco Use Types Packs/Day Years [...]
--- OUTSIDE RECORDS SUMMARY | 2024-12-04 17:07 | XMS_ITS | Continuity of Care Document ---
Author Organization [employer] [facility] Address [address] [place] [address] [address] [place] [address] Phone Care Team Providers Care Occup Therapist Name Role Phone Yoel PT, ALEXANDRET, Yoni Unavailable Rosy vailable Procedures Procedure Date Therapeutic Activities Neuromuscular Re-Ed Progress Note Manual Therapy Hot or Cold Pack Therapeutic Exercise Therapeutic Exercise Therapeutic Activities Neuromuscular Re-Ed Manual Therapy Hot or Cold Pack Therapeutic Activities Manual Therapy Neuromuscular Re-Ed Hot or Cold Pack Therapeutic Exercise Therapeutic Activities Therapeutic Exercise Neuromuscular Re-Ed Hot or Cold Pack Manual Therapy Therapeutic Activities PT Evaluation Moderate Complexity Neuromuscular Re-Ed Therapeutic Exercise Hot or Cold Pack Manual Therapy Progress Note Therapeutic Activities Neuromuscular Re-Ed Therapeutic Exercise Manual Therapy Hot or Cold Pack Therapeutic Activities Neuromuscular Re-Ed Therapeutic Exercise Manual Therapy Hot or Cold Pack Therapeutic Activities Neuromuscular Re-Ed Manual Therapy Therapeutic Exercise Hot or Cold Pack Neuromuscular Re-Ed Manual Therapy Therapeutic Exercise Hot or Cold Pack Therapeutic Exercise Manual Therapy Hot or Cold Pack Therapeutic Activities Neuromuscular Re-Ed Therapeutic Exercise Manual Therapy Hot or Cold Pack Neuromuscular Re-Ed Therapeutic Exercise Manual Therapy Hot or Cold Pack Neuromuscular Re-Ed Therapeutic Exercise Manual Therapy Hot or Cold Pack Neuromuscular Re-Ed Therapeutic Exercise Manual Therapy Hot or Cold Pack PT Evaluation Moderate Complexity Therapeutic Exercise Manual Therapy Advance Directives Directive Yes / No Effective Date File Name No Information Encounters Encounter Description Practice Location Reason(s) For Visit Diagnoses Date Provider Providers Copied on Encounter [facility] [address], [id number], [phone] [place] No Information 0 Rekha es Yoni. [address] [facility], [address], [facility], [place]. tel: [phone] Referring Provider: Ventura Diaz, Awa [facility] [address], [place], [address]. tel:[phone] [facility] [address], [id number], tel:[phone] [place] No Information 0 Rekha es Yoni. [address] [facility], [address], [place], [facility], . tel:[phone] Referring Provider: Awa Buckley [facility] [address], [place], [address]. tel:[phone], [id number], tel:[phone] [place] No Information Oct-0 -202 0 Best-Ricardo es Yoni. [address] [place] [address], [address], [place], [facility], . tel:[phone] Referring Provider: Justyn Buckley1 [facility] [address], [place], [address]. tel:[phone], [id number], tel:[phone] [place] No Information Sep-2 0 Best-Ricardo es Yoni. [address] [place] [address], [address], [place], [facility], . tel:[phone] Referring Provider: Justyn Buckley1 [facility] [address], [place], [address]. tel:[phone], [id number], tel:[phone] [place] No Information Sep-1 0 Best-Ricardo es Yoni. [address] [place] [address], [address], [place], [facility], . tel:[phone] Referring Provider: Justyn Buckley1 [facility] [address], [place], [address]. tel:[phone], [id number], tel:[phone] [place] No Information Mar-1 9-202 0 Best-Ricardo es Yoni. [address] [place] [address], [address], [place], [facility], [place]. tel: [phone] [place] [address] [address], [place], [place], [id number], [place] tel:[phone] [place] No Information Mar-1 7-202 0 Best-Ricardo es Yoni. [address] [place] [address], [address], [place], [place], [facility], [place]. tel: [phone] [facility] [address], [place], [place], [id number], [place] tel:[phone] [place] No Information Mar-1 2-202 0 Best-Ricardo es Yoni. [address] [place] [address], [address], [place], [place], [facility], [place]. tel: [phone] [place] [address] [facility] [address], [place], [place], [id number], tel:[phone] [place] No Information Mar-1 0-202 0 Best-Ricardo es Yoni. [address] [place] [address], [address], [place], [facility], [place]. tel: [phone] [place] [address] [address], [place], [place], [id number], [place] tel:[phone] [place] No Information Mar-0 4-202 0 Best-Ricardo es Yoni. [address] [place] [address], [address], [place], [place], [facility], [place]. tel: [phone] [place] [address] [address], [place], [place], [id number], [place] tel:[phone] [place] No Information Feb-2 8-202 0 Best-Ricardo es Yoni. [address] [place] [address], [address], [place], [place], [facility], [place]. tel: [phone] [facility] [address], [place], [place], [id number], [place] tel:[phone] [place] No Information Feb-2 6-202 0 Best-Ricardo es Yoni. [address] [facility], [address], [place], [facility], . tel: [phone] [address], [id number], tel:[phone] [place] No Information 0 Best-Ricardo es Yoni. [address] [place] [address], [facility] [address] [address], . tel: [phone] [address], [id number], tel:[phone] [place] No Information 0 Best-Ricardo es Yoni. [address] [place] [address], [facility] [address], [place], [facility], . tel: [phone] [address], [id number], tel:[phone] [place] No Information 0 Best-Ricardo es Yoni. [address] [place] [address], [facility] [address], [place], [facility], . tel: [phone] Family History Family Member Type Diagnosis Age At Onset No Information Payers Payer name Insurance type Covered democrat ID Authoryessya cody(s) [employer] Medicare Replacement 16 [id number] Social History Type Description Quantity Date Captured Comments Sex Female Smoking Status No Information Chief Complaint And Reason For Visit No Information Reason For Referral Reason For Referral No Information History Of Present Illness Encounter Date Complaint History Of Prese nt Illness No Information Functional Status Date Functional Assessmen t No Information Instructions Date Instruction Additional Infor mation Giving encouragement to exercise Related to Overweight Dietary needs education Related to Overweight Assessments Type Assessment Date No Information Patient Care Teams Name Effective Dates (start - stop) Status Members No Information
--- OUTSIDE RECORDS SUMMARY | 2024-12-04 17:07 | XMS_ITS | Encounter Summary ---
Author Organization [facility] Address [facility] [place] [address] Care Team Providers Care Drafter Seismograph Name Role Phone Gertrude Butt MD Primary Care Provider + [phone] Isidro Christianson MD Unavailable [phone] Gertrude Butt MD Primary Care Provider + [phone] Ann Koenig MD Primary Care Provider [phone] Corinne Huizar RN Unavailable [phone] Corinne Huizar RN Unavailable [phone] Leonardo Bach MD Unavailable Encounter Details Date Type Department Care Team (Late st Contact Info) Description 08/26/2016 Abstract [facility] CONVERSION [address] [place] [address] , Generic Conversion, Social History Tobacco Use Types Packs/Day Years Used Date Smoking Tobacco: Never Assessed Comments Unknown Sex and Gender Information Value Date Recorded Sex Assigned at Female 01/21/2021 1:31 PM CDT Legal Sex Female 6:56 PM CDT Gender Identity Female 01/21/2021 1:31 PM CDT Sexual Orientation Straight 01/21/2021 1: 31 PM CDT documented as of this encounter Plan of Treatment Upcoming Encounters Date Type Department Care Team (Late st Contact Info) Description 12/13/2024 7:00 AM CDT Office Visit [facility] Family & Internal Medicine - [place] [address] [place] [address] [place] [address] [address] [place] [address] 01/01/2025 9:30 AM CDT Appointment [facility] [address] [place] [address] [place] [address] [facility] [place] [address] 06/27/2025 8:00 AM CDT Office Visit [facility] Multispecialty Care - [facility] [address] [facility] [place] [address] Matt Love MD [address] [facility] [address] [place] [address] 11/28/2025 9:15 AM LITHOGRAPHIC ARTIST Office Visit [facility] [address] [place] [address] Isidro Christianson MD [address] [facility] [place] [address] documented as of this encounter Visit Diagnoses Not on filedocumented in this encounter Additional Health Concerns Infection Onset Date Last Indicated Resolved Time COVID-19 Rule Out 07/21/2020 07/21/2020 07/22/2020 8:25 PM CDT COVID-19 Rule Out 01/06/2021 01/06/2021 01/07/2021 5:00 PM CDT COVID-19 Rule Out 08/29/2023 08/29/2023 08/29/2023 3:16 PM LITHOGRAPHIC ARTIST documented as of this encounter Care Teams Drafter Seismograph Relationship Specialty Start Date End Date Gertrude Butt MD PCP - General INTERNAL MEDICINE 02/25/16 09/10/20 Gertrude Butt MD Three [facility]. [facility] [address] [place] [address] PCP - General INTERNAL MEDICINE 09/11/20 12/26/22 [place] [address] [address] [id number] PCP - General FAMILY PRACTICE 12/27/22 Isidro Christianson MD Three [facility]. [facility] [address] [place], [place] [address] Jasper Shoulder Sawyer CARDIOVASCULAR DISEASE 02/25/16 Corinne Huizar RN [address] [place] [address] Kiln Mechanic (Ambulatory) REGISTERED NURSE 08/16/23 08/28/23 Corinne Huizar RN [address] [place] [address] Kiln Mechanic (Ambulatory) REGISTERED NURSE 08/30/23 09/21/23 [place] [address] [address] [place], [place] [id number] OTOLARYNGOLOGY 09/28/24 09/28/25 documented as of this encounter
--- OUTSIDE RECORDS SUMMARY | 2024-12-04 17:07 | XMS_ITS | Encounter Summary ---
Author Organization [facility] Address [facility] [place] [address] Care Team Providers Care Hemstitcher Name Role Phone Gertrude Butt MD Primary Care Provider + [phone] Isidro Christianson MD Unavailable [phone] Gertrude Butt MD Primary Care Provider + [phone] Ann Koenig MD Primary Care Provider [phone] Corinne Huizar RN Unavailable [phone] Corinne Huizar RN Unavailable [phone] Leonardo Bach MD Unavailable Encounter Details Date Type Department Care Team (Late st Contact Info) Description 11/08/2017 [facility] at [address] [address] Ana Luisa Jennings MA Social History Tobacco Use Types Packs/Day Years Used Date Smoking Tobacco: Never Smokeless Tobacco: Never Alcohol Use Standard Drinks/Week Comments Yes 0 (1 standard drink = 0.6 oz pur e alcohol) socially Comments Unknown Sex and Gender Information Value [...] Description 12/13/2024 7:00 AM CDT Office Visit [facility] Family & Internal Medicine - [place] [address] [place] [address] [place] [address] [place] [address] 01/01/2025 9:30 AM CDT Appointment [facility] [address] [place] [address] [place] [address] [place] [address] 06/27/2025 8:00 AM CDT Office Visit [facility] Multispecialty Care - [facility] [address] [place] [address] Matt Love MD [address] [facility] [address] [place] [address] 11/28/2025 9:15 AM EXHIBITS CURATOR Office Visit [facility] [address] [place] [address] Isidro Christianson MD [address] [facility] [address] [place] [address] documented as of this encounter Procedures Procedure Name Priority Date/Time Associated Diagnosis Comments CBC (OUTSIDE LAB) Routine 09/18/2017 COMPREHENSIVE METABOLIC PANEL Routine 09/18/2017 documented in this encounter Results * (ABNORMAL) COMPREHENSIVE METABOLIC PANEL (09/18/2017) SODIUM S/P/B 140 POTASSIUM S/P/B 3.9 CO2 29 CHLORIDE S/P/B 102 GLUCOSE 101 mg/dL CALCIUM S/P/B 9.1 BUN 16 CREATININE S/P/B 1.23(A) 0.5 - 1.0 EGFR NON-AFR. AMER. 46 <=90 ALKALINE PHOSPHATASE S/P/B 102 ALT 14 AST 11 BILIRUBIN TOTAL S/P/B 0.6 ALBUMIN S/P/B 3.6 3.5 - 5.0 TOTAL PROTEIN S/P/B 6.5 09/18/2017 us Doc [facility] Final Result * CBC (OUTSIDE LAB) (09/18/2017) WBC 9.3 HGB 11.1 HCT 33.5 PLT 282 09/18/2017 us Doc [facility] LAB-OUTSIDE/ABSTRACTED Final Result documented in this encounter Visit Diagnoses Not on filedocumented in this encounter Additional Health Concerns Infection Onset Date Last Indicated Resolved Time COVID-19 Rule Out 07/21/2020 07/21/2020 07/22/2020 8:25 PM CDT COVID-19 Rule Out 01/06/2021 01/06/2021 01/07/2021 5:00 PM CDT COVID-19 Rule Out 08/29/2023 08/29/2023 08/29/2023 3:16 PM EXHIBITS CURATOR documented as of this encounter Care Teams Hemstitcher Relationship Specialty Start Date End Date Gertrude Butt MD PCP - General INTERNAL MEDICINE 02/25/16 09/10/20 Gertrude Butt MD [address] [address] PCP - General INTERNAL MEDICINE 09/11/20 12/26/22 [place] [address] [address] [place] [address] PCP - General FAMILY PRACTICE 12/27/22 Isidro Christianson MD Three [facility]. [address] [place] [address] [place] Forensic Manager CARDIOVASCULAR DISEASE 02/25/16 Corinne Huizar, RN [address] [place] [address] Cigar Packer And Shader (Ambulatory) REGISTERED NURSE 08/16/23 08/28/23 Corinne Huizar, RN [address] [place] [address] Cigar Packer And Shader (Ambulatory) REGISTERED NURSE 08/30/23 09/21/23 [place] [address] [place], [place] [phone] OTOLARYNGOLOGY 09/28/24 09/28/25 documented as of this encounter
--- OUTSIDE RECORDS SUMMARY | 2024-12-04 17:07 | XMS_ITS | Encounter Summary ---
Author Organization [facility] Address [facility] [place] [address] Care Team Providers Care Director Of Retail Name Role Phone Isidro Christianson MD Unavailable [phone] Ann Koenig MD Primary Care Provider [phone] Corinne Huizar RN Unavailable [phone] Corinne Huizar RN Unavailable [phone] Leonardo Bach MD Unavailable Encounter Details Date Type Department Care Team (Late st Contact Info) Description 03/03/2023 Pre-Procedure Call [facility] Endo/GI [address] [place] [address] Keegan Hui, Social History Tobacco Use Types Packs/Day Years [...] on file 12/25 PHQ-2 Answer Date Recorded Patient Health Questionnaire-2 Score 0 12/22/2022 Comments No Sex and Gender Information Value [...] suspected to have Coronavirus/COVID-19? No / Unsure 03/03/2023 8:01 AM CDT documented as of this encounter Last Filed Vital Signs Vital Sign Reading Time Taken Comments Blood Pressure - - Pulse - - Temperature - - Respiratory Rate - - Oxygen Saturation - - Inhaled Oxygen Concentration - - Weight 99.3 kg (219 lb) 03/03/2023 8:02 AM CDT Height 157.5 cm (5' 2 ) 03/03/2023 8:02 AM CDT Body Mass Index 40.06 03/03/2023 8:02 AM CDT documented in this encounter Plan of Treatment Upcoming Encounters Date Type Department Care Team (Late st Contact Info) Description 12/13/2024 7:00 AM CDT Office Visit [facility] Medicine - [place] [address] [place] [address] [place] [address] [facility] [place] [id number] 01/01/2025 9:30 AM CDT Appointment [facility] [address] [place] [address] [place] [address] [facility]. [address] [place] [id number] 06/27/2025 8:00 AM CDT Office Visit [facility] - [address] [place] [address] Matt Love MD [address] [facility] [address] [place] [address] 11/28/2025 9:15 AM SHOE REPAIRMAN Office Visit [facility] [address] [place] [address] Isidro Christianson MD [facility]. [address] [place] [address] documented as of this encounter Visit Diagnoses Not on filedocumented in this encounter Additional Health Concerns Infection Onset Date Last Indicated Resolved Time COVID-19 Rule Out 08/29/2023 08/29/2023 08/29/2023 3:16 PM SHOE REPAIRMAN Assessment Noted Time PHQ-9 Depression Total Score: 9 10/27/19 8:21 AM SHOE REPAIRMAN documented as of this encounter Care Teams Director Of Retail Relationship Specialty [place] [address] [facility] [place], [place] [id number] PCP - General FAMILY PRACTICE 12/27/22 Isidro Christianson MD [facility]. [address] [place] [address] [place] Gum Worker CARDIOVASCULAR DISEASE 02/25/16 Corinne Huizar RN [address] [place] [address] Metal Buggy Operator (Ambulatory) REGISTERED NURSE 08/16/23 08/28/23 Corinne Huizar RN [address] [place] [address] Metal Buggy Operator (Ambulatory) REGISTERED NURSE 08/30/23 09/21/23 [place] [address] [place] [address] OTOLARYNGOLOGY 09/28/24 09/28/25 documented as of this encounter
--- OUTSIDE RECORDS SUMMARY | 2024-12-04 17:07 | XMS_ITS | Patient Health Summary ---
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 This disclosure is being madepursuant to the Care Everywhere program and may not contain all information available regarding this patient. Last updated 18.[facility] Social History Tobacco Use Types Packs/Day Years Used Date Smoking Tobacco: Never Assessed Sex and Gender Information Value Date Recorded Sex Assigned at Not on file Gender Identity Not on file Sexual Orientation Not on file
--- OUTSIDE RECORDS SUMMARY | 2024-12-04 17:07 | XMS_ITS | Clinical Summary ---
Author Organization [facility] Address [address] [place] [address] Care Team Providers Care Junior Accounting Clerk Name Role Phone Isidro Christianson MD Unavailable [phone] Ann Koenig MD Primary Care Provider [phone] Leonardo Bach MD Unavailable Allergies Active Allergy Reactions Criticality Noted Date Comments Methadone Dizziness,Myalgias High 08/18/2015 Slurred speech Statins Myalgias Medium 03/27/2019 Medications acetaminophen 325 MG tabletIndicatio ns:Pain Take 2 tablets (650 mg total) by mouth every 6 (six) hours as needed for Pain. Indications: Pain Active Lancet Devices (TRUEDRAW LANCING DEVICE) MiscIndications :Diabetes Mellitus Use to check BS twice daily 1 each 1 06/29/20 22 Active folic acid (FOLVITE) 1 MG tabletIndicatio ns:Mineral Deficiency Take 1 tablet (1 mg total) by mouth daily. Indications: Mineral Deficiency 10/22/19 23 Active Thiamine HCl (VITAMIN B-1) 250 MG TabIndications: Mineral Deficiency Take 1 tablet by mouth daily. Indications: Mineral Deficiency Active psyllium (METAMUCIL) 51.7 % packetIndicatio ns:Constipation Take 1 packet by mouth 3 (three) times daily. Indications: Constipation Active gabapentin (NEURONTIN) 300 MG capsuleIndicati ons:Pain Take 1 capsule (300 mg total) by mouth 3 (three) times daily. Indications: Pain 12/04/19 23 Active B Complex-C Tab tabletIndicatio ns:Mineral Deficiency Take 1 tablet by mouth daily. Indications: Mineral Deficiency Active ferrous sulfate, 65 mg elemental, 325 (65 FE) MG tabletIndicatio ns:Mineral Deficiency Take 1 tablet (325 mg total) by mouth daily with breakfast. Indications: Mineral Deficiency Active vitamin D3 (CHOLECALCIFERO L) 125 mcg TabIndications: Mineral Deficiency Take 1 tablet (125 mcg total) by mouth daily. Indications: Mineral Deficiency Active aspirin EC (ECOTRIN) 81 MG tabletIndicatio ns:Prophylaxis Take 1 tablet (81 mg total) by mouth daily. Indications: Preventative Treatment Active methotrexate (TREXALL) 2.5 MG tabletIndicatio ns:Pain Take 3 tablets (7.5 mg total) by mouth once a week. Indications: Pain On Active Magnesium 400 MG TabIndications: Mineral Deficiency Take 1 tablet by mouth daily. Indications: Mineral Deficiency 08/23/20 23 Active docusate sodium (STOOL SOFTENER) 100 MG capsuleIndicati ons:Constipatio n Take 1 capsule (100 mg total) by mouth 2 (two) times daily as needed. Indications: Constipation 08/23/20 23 Active TRUEplus Lancets 30G MiscIndications :Type 2 diabetes mellitus with stage 3b chronic kidney disease, without long-term current use of insulin ([facility]) TEST BLOOD SUGAR TWICE DAILY 200 each 3 09/29/19 24 Active TRUE METRIX BLOOD GLUCOSE TEST test stripIndication s:Type 2 diabetes mellitus with stage 3b chronic kidney disease, without long-term current use of insulin ([facility]) TEST BLOOD SUGAR TWICE DAILY 200 strip 3 10/24/19 24 Active dilTIAZem CD (CARDIZEM CD) 180 MG 24 hr capsuleIndicati ons:Essential hypertension TAKE 1 CAPSULE EVERY DAY 90 capsule 3 10/24/19 24 Active calcium carb-cholecalci ferol (CALTRATE 600+D) 600-20 MG-MCG tablet Take 1 tablet by mouth 2 (two) times daily. Active nortriptyline (PAMELOR) 25 MG capsuleIndicati ons:Sleep Disorder Take 2 capsules (50 mg total) by mouth nightly at bedtime. Indications: Sleep Disorder 180 capsule 3 05/24/20 24 Active BONE STIMULATOR, DME,Indications :Lumbar spine instability Wear 4 hours daily. Can break up into multiple sessions totaling 4 hours. 1 Device 08/29/20 Active Misc. Devices MiscIndications :Lumbar spine instability 1 each by Does not apply route continuous. LSO for continuous wear while ambulating or up in chair. 1 each 08/29/20 Active cyclobenzaprine (FLEXERIL) 5 MG tabletIndicatio ns:Spinal stenosis of lumbar region, unspecified whether neurogenic claudication present,Lumbar disc herniation Take 1 tablet (5 mg total) by mouth 2 (two) times daily as needed for Muscle Spasms. 180 tablet 1 09/11/20 Active lisinopril (PRINIVIL) 10 MG tabletIndicatio ns:Essential hypertension TAKE 1/2 TABLET EVERY DAY FOR HIGH BLOOD PRESSURE 45 tablet 3 09/11/20 24 Active Additional Information Patient taking differently: 10 mg Oral Daily, Reported on 11/22/2024 allopurinol (ZYLOPRIM) 300 MG tabletIndicatio ns:Gout, unspecified cause, unspecified chronicity, unspecified site TAKE 1 TABLET EVERY DAY FOR GOUT 90 tablet 3 09/12/20 24 Active HYDROcodone-yvette taminophen (NORCO) 7.5-325 MG tabletIndicatio ns:Chronic Pain Take 1 tablet by mouth daily as needed for Pain. Indications: Chronic Pain 30 tablet 10/04/19 25 Active omeprazole (PRILOSEC) 20 MG capsuleIndicati ons:Gastroesoph ageal reflux disease without esophagitis TAKE 1 CAPSULE EVERY NIGHT AT BEDTIME FOR STOMACH ACHE 90 capsule 3 11/27/19 25 Active omeprazole (PRILOSEC) 20 MG capsuleIndicati ons:Stomach Pain Take 1 capsule (20 mg total) by mouth nightly at bedtime. Indications: Stomach Ache at bedtime 90 capsule 3 11/24/19 24 2024 Discontinued clopidogrel (PLAVIX) 75 MG tablet Take 1 tablet (75 mg total) by mouth daily. 90 tablet 10/10/19 25 2024 Discontinued Active Problems Problem Noted Date Diagnosed Date Radiculopathy, lumbar region 08/21/2024 Foraminal stenosis of lumbar region 08/21/2024 Sacroiliitis 08/21/2024 Facet hypertrophy of lumbar region 08/21/2024 Bilateral occipital neuralgia 12/20/2023 Myofascial neck pain 09/27/2023 Decreased range of motion of neck 09/27/2023 Syncope 08/29/2023 Spinal stenosis of cervical region 08/17/2023 Foraminal stenosis of cervical region 08/17/2023 History of fusion of cervical spine 08/17/2023 Cervical myelopathy (CMS/HCC HHS/HCC) 08/16/2023 S/P cervical spinal fusion 08/16/2023 Anemia, unspecified type 12/09/2022 Overview (12/09/2022): Added automatically from request for surgery [id number] Primary hypertension 07/21/2022 Abnormal finding on lung imaging 09/11/2020 Stage 3 chronic kidney disease 07/30/2020 Restrictive lung disease 07/07/2020 MARIE (dyspnea on exertion) 07/07/2020 Physical deconditioning 07/07/2020 Metabolic syndrome 07/07/2020 Gastrointestinal hemorrhage associated with anorectal source 06/24/2020 Overview (06/24/2020): Added automatically from request for surgery [id number] Dysphagia 06/24/2020 Overview (06/24/2020): Added automatically from request for surgery [id number] GERD (gastroesophageal reflux disease) 9 Right hip pain 07/12/2018 Biceps tendon rupture, proximal 01/31/2018 Wheezing 01/10/2018 Tear of medial meniscus of right knee 12/13/2017 Lytic lesion of bone on x-ray 12/01/2017 Fall, accidental 11/14/2017 Knee pain 11/07/2017 Right shoulder pain 07/20/2017 Overview (08/13/2020): Annotation - [id number]: Dx 2012 Added automatically from request for surgery [id number] Class 3 severe obesity in adult 07/04/2017 Dyslipidemia 04/25/2017 Chest pain due to myocardial ischemia 04/25/2017 Shoulder arthritis 01/11/2017 Overview (08/13/2020): Added automatically from request for surgery [id number] Unsteady gait 01/11/2017 Posterior tibial tendonitis 11/19/2016 Osteoporosis screening 06/09/2016 Overview (09/14/2018): Transitioned From: Encounter for preventive health examination Neck pain 06/09/2016 NAY on CPAP 06/09/2016 Overview (09/14/2018): Annotation - [id number]: 10/18/16 sleep titration study 12 mmhg Vitamin D deficiency 06/09/2016 Knee instability, left 12/08/2015 Sore muscles 04/22/2015 Muscle spasm 02/24/2015 DDD (degenerative disc disease), cervical 2014 Type 2 diabetes mellitus wit h stage 3b chronic kidney disease, without long-term current use of insulin ([facility]) 12/03/2014 Gout, unspecified cause, uns pecified chronicity, unspecified site 12/03/2014 Hyperlipidemia 12/03/2014 Lumbar spinal stenosis 12/03/2014 Neuropathy, peripheral 12/03/2014 RLS (restless legs syndrome) 12/03/2014 TIA (transient ischemic attack) 05/27/2011 Resolved Problems Problem Noted Date Diagnosed Date Resolved Date Wears glasses 10/17/2017 06/06/2020 Encounters Date Type Department Care Team Description 12/03/2024 10:27 AM CDT Hospital Encounter [facility] [address] [place] [address] Gerber Maher MD Arrived 12/03/2024 Travel 11/26/2024 [facility] on [address] [address] Martha Coates FNP Results 11/22/2024 9:15 AM INFANT AND TODDLER TEACHER [facility] [address] [place] [address] Martha Coates FNP Hypertension; Lipids; Neurologic Problem 11/22/2024 Travel 11/19/2024 10:55 AM INFANT AND TODDLER TEACHER - 11/19/2024 11:59 PM INFANT AND TODDLER TEACHER Hospital Encounter [facility] [address] [place] [address] Willa Smith MD Discharge Disposition: Home or Self Care (Routine Discharge) 11/19/2024 Orders Only [facility] [address] [place] [address] Willa Smith MD 11/19/2024 Travel 11/06/2024 Scan HEALTH INFO SRVCS Scanned, [facility] 10/30/2024 Telephone [facility] [address], [address] [place] [address] Hansel Dalal MD Question 10/23/2024 3:44 PM INFANT AND TODDLER TEACHER - 10/23/2024 9:46 PM INFANT AND TODDLER TEACHER Emergency [facility] [place] [address] Harish Alfredo MD,PHD Arm Pain Discharge Disposition: Home or Self Care (Routine Discharge) 10/23/2024 3:00 PM INFANT AND TODDLER TEACHER [facility] [address] [facility], [address] [place] [phone] Mindy Tapia RESEARCH PROFESSOR OF BIOSTATISTICS Follow Up (F/U with CT) 10/23/2024 Travel 10/18/2024 8:15 AM INFANT AND TODDLER TEACHER - 10/18/2024 11:59 PM INFANT AND TODDLER TEACHER Hospital Encounter [facility] [address] [place] [address] Mindy Tapia RESEARCH PROFESSOR OF BIOSTATISTICS Discharge Disposition: Home or Self Care (Routine Discharge) 10/18/2024 Travel 10/04/2024 9:40 AM INFANT AND TODDLER TEACHER Office Visit [facility] [address] [place] [address] Paola Ceja MD Sharma, Shivani, MD ER F/U (ER follow up [facility] 09/28/2024 remove stitches , bridge of nose ) 10/04/2024 Telephone [facility] [address] [place] [phone] Ann Koenig MD Referral 10/04/2024 Travel 09/28/2024 11:53 AM INFANT AND TODDLER TEACHER - 09/28/2024 3:05 PM INFANT AND TODDLER TEACHER Emergency [facility] Emergency Room [address] [place] [address] Nadeem Meadows MD Laceration Discharge Disposition: Home or Self Care (Routine Discharge) 09/28/2024 Travel 09/11/2024 7:20 AM INFANT AND TODDLER TEACHER Office Visit [facility] [id number] [place] [phone] Ann Koenig MD Medication Management 09/10/2024 10:20 AM INFANT AND TODDLER TEACHER - 09/10/2024 11:59 PM INFANT AND TODDLER TEACHER Hospital Encounter [facility] [address] [place] [address] Gerber Maher MD Discharge Disposition: Home or Self Care (Routine Discharge) 09/10/2024 Orders Only [facility] [id number] [place] [address] Gerber Maher MD 09/10/2024 Travel 09/05/2024 Scan [employer] INFO SRVCS Scanned, [facility] 09/05/2024 Telephone [facility] [place] - [address], [address] [place] [phone] Hansel Dalal MD Called To Cancel Office Appt. (Surgery cancelled) 09/05/2024 Telephone [facility] [address] [address] Ann Koenig MD Referral 09/05/2024 Telephone [facility] - [address], [address] [place] [phone] Hansel Dalal MD Prior Authorization from Last 3 Months Immunizations Name Administration Dates Next Due Arexvy Respiratory Syncytial Virus (RSV, adjuvanted) 0.5 mL, PF 08/01/2023 Fluzone High Dose (IIV, triv alent, 0.5mL) 07/14/2024,09/25/2015 Fluzone High Dose - >Age 65 (Prefilled Syringe) 07/20/2023,07/19/2022,07/21/2021,2019,07/02/2019,07/04/2017,06/09/2016,1 Influenza (Generic) 09/25/2015,07/24/2014 Influenza Adult (Generic) 07/20/2020,03/2019,06/26/2018(Deferr ed: Patient Refused),07/04/2017,06/09/2016,09/25/20 15,07/24/2014 MODERNA COVID-19 (12+) MRNA, LNP-S, PF, 100 MCG/ 0.5 ML DOSE 07/23/2021,12/30/2020,12/02/2020 Pneumococcal (Pneumovax 23) 02/12/2020, 4 Pneumococcal (Prevnar 13) 03/15/2016 Shingrix 01/04/2023,10/25/2022 Tdap (Generic) 07/04/2015 Family History Medical History Relation Comments Heart Attack Brother 1 Heart Disease Brother 1 Stent Cardiac Brother 1 Heart Attack Brother 2 Heart Disease Brother 2 Stent Cardiac Brother 2 Heart Attack Brother 3 Heart Disease Brother 3 Stent Cardiac Brother 3 Heart Attack Brother 4 Stent Cardiac Brother 4 Heart Attack Father Heart Disease Father Stroke Father Arthritis Mother Cancer Mother Diabetes Mother Heart Attack Mother Heart Disease Mother Miscarriages / Stillbirths Mother Stroke Mother Breast Cancer Paternal Aunt COPD Sister 1 Cancer Sister 1 Diabetes Sister 1 Early Sister 1 Miscarriages / Stillbirths Sister 1 Early Sister 2 Miscarriages / Stillbirths Sister 3 Miscarriages / Stillbirths Sister 4 Relation Status Comments Brother 1 Brother 2 Brother 3 Brother 4 Father Maternal Aunt Maternal Grandfather Maternal Grandmother Mother Paternal Aunt Sister 1 Sister 2 Sister 3 Sister 4 Social History Tobacco Use Types Packs/Day Years Used Date Smoking Tobacco: Never Smokeless Tobacco: Never Tobacco Cessation:Counseling Given: No Alcohol Use Standard Drinks/Week Comments Not Currently [...] materials from doctor or pharmacy Never 09/30/2023 [place] Utilities Answer Date Recorded In the past 12 months has e 4vets, gas, oil, or water [employer] threatened to shut off services in your [...] Recorded Patient Health Questionnaire-2 Score 0 10/04/2024 [place] [facility] [employer] - Occupational Stress [...] place to sleep or slept in a fci (including now)? No 08/29/2023 Comments No Sex and Gender Information Value Date Recorded Sex Assigned at Female 01/21/2021 1:31 PM CDT Legal Sex Female 6:56 PM CDT Gender Identity Female 01/21/2021 1:31 PM CDT Sexual Orientation Straight 01/21/2021 1: 31 PM CDT Occupation Industry Job Start Date Job End Date Not on file Not on file Not on file Not on file Last Filed Vital Signs Vital Sign Reading Time Taken Comments Blood Pressure 110/50 11/22/2024 9:02 AM INFANT AND TODDLER TEACHER Pulse 84 11/22/2024 9:02 AM INFANT AND TODDLER TEACHER Temperature 36.8 C (98.3 F) 10/23/2024 3:41 PM INFANT AND TODDLER TEACHER Respiratory Rate 18 10/23/2024 9:45 PM INFANT AND TODDLER TEACHER Oxygen Saturation 100% 10/23/2024 9:45 PM INFANT AND TODDLER TEACHER Inhaled Oxygen Concentration - - Weight 98.9 kg (218 lb) 11/22/2024 9:02 AM INFANT AND TODDLER TEACHER Height 157.5 cm (5' 2 ) 11/22/2024 9:02 AM INFANT AND TODDLER TEACHER Body Mass Index 39.87 11/22/2024 9:02 AM INFANT AND TODDLER TEACHER Plan of Treatment Upcoming Encounters Date Type Department Care Team (Late st Contact Info) Description 12/13/2024 7:00 AM CDT Office Visit [facility] [place] [address] [place] [phone] [place] [address] [facility] [address] [place] [address] 01/01/2025 9:30 AM CDT Appointment [facility] [address] [place] [address] [place] [address] [facility]. [address] [place] [address] 06/27/2025 8:00 AM CDT Office Visit [facility] - [facility] [address] [facility] [address] [place] [address] Matt Love MD 3rd [facility] [address] [place] [address] 11/28/2025 9:15 AM INFANT AND TODDLER TEACHER Office Visit [facility] [address] [place] [phone] Isidro Christianson MD [facility]. [address] [address] Health Maintenance Due Date Last Done Comments Kidney Health Evaluation 1950 Annual Medicare Wellness Visit 2014 ASCVD LDL 09/20/2024 09/20/2023, 06/27, 03/08/2022, Additional history exists Lipid Panel 09/20/2024 09/20/2023, 06/27, 03/08/2022, Additional history exists Hemoglobin A1C 03/12/2025 09/11/2024, 06/0 11/2023, 08/30/2023, Additional history exists DTaP, Tdap and Td Vaccines (2 - Td or Tdap) 07/04/2025 07/04/2015 Diabetes: Retinopathy Eye Exam 12/20/2025 12/21/2023, 01/20/2023, 04/03/2021, Additional history exists Colorectal Cancer Screening Colonoscopy (10 Years) 07/24/2030 07/24/2020, 03/01/2014, 02/21/2014, Additional history exists Dexa Scan (General) Completed 06/11/2016, 8 Pneumococcal Vaccine: 65+ Years Completed 02/12/2020, 03/15/2016, 07/24/2014 Hepatitis C Completed 07/06/2022, 07/03/2019 Zoster Vaccines Completed 01/04/2023, 10/25/2022 RSV Immunization or 60+ Years Completed 08/01/2023 COVID-19 Vaccine Completed 07/14/2024, , 07/23/2022, Additional history exists Influenza Adult Completed 07/14/2024, 06/27, 07/19/2022, Additional history exists PHQ-2 (Physician [place]) Completed 10/04/2024 Meningococcal B Vaccine Aged Out No l onger eligible based on patient's age to complete this topic Meningococcal Vaccine Aged Out No francisco javier anurag eligible based on patient's age to complete this topic RSV Immunizations Under 20 Months Aged Out No longer eligible based on patient's age to complete this topic Goals Goal Patient Goal Type Associated Problems Recent Progress Patient-Stated? Author Family - family caregiver with be involved in care transitions and discharge planning Lifestyle On track( 023 11:48 AM INFANT AND TODDLER TEACHER) No Kehinde Retana RN Medical Devices Implanted Type Area Water Pump Operator Device Identifier Shelf Expiration Date Model / Serial / Lot Graft Infuse Bone Xsmall - [id number] Implanted:Qty : 1 on 08/16/2023 by Hansel Dalal MD at [facility] Bone N/A: Spine Cervical [employer] [id number] 11/23/2024 [id number] / / [id number] Bio Dbm Putty Implanted:Qty : 1 on 08/16/2023 by Hansel Dalal MD at [facility] Bone N/A: Spine Cervical [employer] - DIV NIHARIKA YUDITH 04/11/2025 [id number] / / [id number] Bio Dbm Putty Implanted:Qty : 1 on 08/16/2023 by Hansel Dalal MD at [facility] Bone N/A: Spine Cervical 04/03/2025 [id number] / / [id number] [place] Interbody Implanted:Qty : 1 on 08/16/2023 by Hansel Dalal MD at [facility] Cage N/A: Spine Cervical [id number] 11/23/[id number] / / [id number] [place] Interbody Implanted:Qty : 1 on 08/16/2023 by Hansel Dalal MD at [facility] Cage N/A: Spine Cervical [id number] 04/03/[id number] / / [id number] 77mm Plate Implanted:Qty : 1 on 08/16/2023 by Hansel Dalal MD at [facility] Plate N/A: Spine Cervical [employer] - DIV NIHARIKA YUDITH [id number] / / 16mm Vst Screw Implanted:Qty : 10 on 08/16/2023 by Hansel Dalal MD at [facility] Screw N/A: Spine Cervical [employer] - DIV NIHARIKA YUDITH [id number] / / [place] Iol Implanted:Qty : 1 on 11/15/2022 by Mika Rizzo MD at [facility] Left: Eye [id number] 08/10/2025 / [id number] / [place] Iol Implanted:Qty : 1 on 12/13/2022 by Mika Rizzo MD at [facility] Right: Eye [employer] - [employer]GICAL DIV [id number] 08/17/2025 [id number] / [id number] / [place] Interbody System Cervical Interbody Implanted:Qty : 1 on 08/16/2023 by Hansel Dalal MD at [facility] N/A: Spine Cervical [employer] - DIV NIHARIKA YUDITH [id number] 10/24/2027 [id number] / / [id number] Explanted Type Area Water Pump Operator Device Identifier Shelf Expiration Date Model / Serial / Lot Temp Fix Pin Explanted:Qty: 2 on 08/16/2023 by Hansel Dalal MD at [facility] Pin N/A: Spine Cervical [employer] - DIV NIHARIKA YUDITH [id number] / / Distration Pin 12mm - [id number] Explanted:Qty: 1 on 08/16/2023 at [facility] Pin N/A: Spine Cervical [employer] DP-12-TB / / Distration Pin 12mm - [id number] Explanted:Qty: 1 on 08/16/2023 by Hansel Dalal MD at [facility] Pin N/A: Spine Cervical [employer] DP-12-TB / / Capsule Pill Cam - [id number] Implanted:Qty: 1 on 03/07/2023 by Zackary Mortensen RN at [facility] Explanted:Qty: 1 on 03/30/2023 COVIDIEN 04/02/2024 [id number] / [id number] / [id number] Procedures Procedure Name Priority Date/Time Associated Diagnosis Comments HEPATIC FUNCTION PANEL Routine 12/03/2024 10:36 AM CDT Encounter for therapeutic drug monitoring BASIC METABOLIC PANEL Routine 12/03/2024 10:36 AM CDT Encounter for therapeutic drug monitoring CBC W/DIFF AUTOMATED Routine 12/03/2024 10:36 AM CDT Encounter for therapeutic drug monitoring THYROID STIM HORMONE TSH Routine 11/19/2024 11:04 AM INFANT AND TODDLER TEACHER Nontoxic uninodular goiter Disease of thyroid gland THYROXINE, FREE (FT4) Routine 11/19/2024 11:04 AM INFANT AND TODDLER TEACHER Nontoxic uninodular goiter Disease of thyroid gland TROPONIN, QUANT STAT 10/23/2024 8:08 PM INFANT AND TODDLER TEACHER ECG 12-LEAD STAT 10/23/2024 8:04 PM INFANT AND TODDLER TEACHER XR CHEST PORTABLE STAT 10/23/2024 3:5 8 PM INFANT AND TODDLER TEACHER TROPONIN, QUANT STAT 10/23/2024 3:55 PM INFANT AND TODDLER TEACHER COMPREHENSIVE METABOLIC PANEL STAT 10/23/2024 3:55 PM INFANT AND TODDLER TEACHER CBC W/DIFF AUTOMATED STAT 10/23/2024 3:55 PM INFANT AND TODDLER TEACHER ECG 12-LEAD STAT 10/23/2024 3:40 PM INFANT AND TODDLER TEACHER CT CERV SPINE WO CON Routine 10/18/2024 8:49 AM INFANT AND TODDLER TEACHER S/P cervical spinal fusion SUTURE REMOVAL Routine 10/04/2024 9:40 AM INFANT AND TODDLER TEACHER Wound healing, delayed XR KNEE RT 3V STAT 09/28/2024 1:16 PM INFANT AND TODDLER TEACHER XR KNEE LT 3V STAT 09/28/2024 1:16 PM INFANT AND TODDLER TEACHER CT THOR SPINE WO CON STAT 09/28/2024 1:09 PM INFANT AND TODDLER TEACHER CT LUMB SPINE WO CON STAT 09/28/2024 1:09 PM INFANT AND TODDLER TEACHER CT CERV SPINE WO CON STAT 09/28/2024 1:09 PM INFANT AND TODDLER TEACHER CT FACIAL BONES WO CON STAT 09/28/2024 1:09 PM INFANT AND TODDLER TEACHER CT HEAD WO CON STAT 09/28/2024 1:09 PM INFANT AND TODDLER TEACHER COLLECT.CAPILLARY (FNGR,HEEL,EAR) Routine 09/11/2024 7:15 AM INFANT AND TODDLER TEACHER Type 2 diabetes mellitus with stage 3b chronic kidney disease, without long-term current use of insulin ([facility] HHS/HCC) HEMOGLOBIN, GLYCOSYLATED Routine 09/11/2024 Type 2 diabetes mellitus with stage 3b chronic kidney disease, without long-term current use of insulin ([facility] HHS/HCC) HEPATIC FUNCTION PANEL Routine 09/10/2024 10:31 AM INFANT AND TODDLER TEACHER Encounter for therapeutic drug monitoring BASIC METABOLIC PANEL Routine 09/10/2024 10:31 AM INFANT AND TODDLER TEACHER Encounter for therapeutic drug monitoring CBC W/DIFF AUTOMATED Routine 09/10/2024 10:31 AM INFANT AND TODDLER TEACHER Encounter for therapeutic drug monitoring DIABETIC RETINOPATHY EXAM (NEGATIVE)(SCAN ORDER) Routine 12/21/2023 LIPID PANEL Routine 09/20/2023 8:52 AM INFANT AND TODDLER TEACHER Type 2 diabetes mellitus with stage 3b chronic kidney disease, without long-term current use of insulin Dyslipidemia HEPATITIS C ANTIBODY Routine 07/06/2022 11:23 AM CDT Neuropathy Fatigue Arthritis Myalgia Hypomagnesemia Diabetes mellitus screening Vitamin D deficiency Vitamin B 12 deficiency Iron deficiency anemia, unspecified Therapeutic drug monitoring Screening examination for poliomyelitis Abnormal liver function test Systemic lupus erythematosus BONE DENSITY/DEXA Routine 06/11/2016 11: 05 AM CDT COLONOSCOPY Routine 03/01/2014 12:00 AM CDT from Last 3 Months or Most Recently Relevant to Health Maintenance Results * (ABNORMAL) BASIC METABOLIC PANEL (12/03/2024 10:36 AM CDT) Only the most recent of2 resultswithin the time period is included. GLUCOSE 126(H) 70 - 99 MG/DL 12/03/2024 11:50 AM CDT [facility] BUN 15 7 - 18 MG/DL 12/03/2024 11:50 AM CDT [facility] CREATININE S/P/B 1.56(H) 0.55 - 1.02 MG/DL 12/03/2024 11:50 AM CDT [facility] SODIUM S/P/B 141 136 - 145 MMOL/L 12/03/2024 11:50 AM CDT [facility] POTASSIUM S/P/B 4.1 3.5 - 5.1 MMOL/L 12/03/2024 11:50 AM CDT [facility] CHLORIDE S/P/B 103 100 - 108 MMOL/L 12/03/2024 11:50 AM CDT [facility] CO2 28.7 21 - 32 MMOL/L 12/03/2024 11:50 AM CDT [facility] CALCIUM S/P/B 9.5 8.5 - 10.1 MG/DL 12/03/2024 11:50 AM CDT [facility] ANION GAP 9.3 5 - 15 MMOL/L 12/03/2024 11:50 AM CDT [facility] BUN CREATININE RATIO 9.6 6 - 26 12/03/2024 11:50 AM T [facility] GFR ESTIMATE 34(L) >90 ML/MIN/1.7 3 M2 12/03/2024 11:50 AM CDT [facility] Comment: NOTE: eGFR is not calculated for patients <18 years of age. This is an estimated GFR calculation using the new CKD EPI creatinine equation without race and so does not require a correction factor for race. This estimated GFR should not be used for calculating drug doses. 12/03/2024 10:3 6 AM CDT Gerber Maher MD LABORATORY Final Result [facility] [address] [place] [address], * HEPATIC FUNCTION PANEL (12/03/2024 10:36 AM CDT) Only the most recent of2 resultswithin the time period is included. TOTAL PROTEIN S/P/B 6.9 6.4 - 8.2 G/DL 12/03/2024 11:50 AM CDT [facility] ALBUMIN S/P/B 3.4 3.4 - 5.0 G/DL 12/03/2024 11:50 AM T [facility] BILIRUBIN TOTAL S/P/B 0.5 0.2 - 1.2 MG/DL 12/03/2024 11:50 AM T [facility] BILIRUBIN DIRECT S/P/B 0.1 0.0 - 0.20 MG/DL 12/03/2024 11:50 AM T [facility] BILIRUBIN INDIRECT S/P/B 0.4 0.0 - 0.9 MG/DL 12/03/2024 11:50 AM CDT [facility] ALKALINE PHOSPHATASE S/P/B 129 50 - 136 U/L 12/03/2024 11:50 AM CDT [facility] AST 15 15 - 37 U/L 12/03/2024 11:50 AM CDT [facility] ALT 21 14 - 55 U/L 12/03/2024 11:50 AM CDT [facility] A/G RATIO 1.0 1.0 - 2.0 RATIO 12/03/2024 11:50 AM CDT [facility] 12/03/2024 10:3 6 AM CDT us Gerber Maher MD LABORATORY Final Result [facility] [address] [place] [phone], * (ABNORMAL) CBC W/DIFF AUTOMATED (12/03/2024 10:36 AM CDT) Only the most recent of3 resultswithin the time period is included. WBC 7.34 4.4 - 11.0 x10'3/uL 12/03/2024 10:56 AM CDT [facility] RBC 3.26(L) 4.50 - 5.10 x10'6/uL 12/03/2024 10:56 AM CDT [facility] HGB 11.1(L) 12.3 - 15.3 G/DL 12/03/2024 10:56 AM CDT [facility] HCT 33.8(L) 35.9 - 44.6 % 12/03/2024 10:56 AM CDT [facility] MCV 103.7(H) 80.0 - 96.0 FL 12/03/2024 10:56 AM CDT [facility] MCH 34.0(H) 25.3 - 30.9 PG 12/03/2024 10:56 AM CDT [facility] MCHC 32.8 31.0 - 34.1 G/DL 12/03/2024 10:56 AM CDT [facility] RDW 14.9 12.4 - 15.1 % 12/03/2024 10:56 AM CDT [facility] PLT 336 151 - 353 x10'3/uL 12/03/2024 10:56 AM CDT [facility] MPV 9.6 9.6 - 12.0 FL 12/03/2024 10:56 AM CDT [facility] RBC MORPHOLOGY NORMAL 12/03/2024 10:56 AM T [facility] PLT MORPH. NORMAL 12/03/2024 10:56 AM T [facility] WBC MORPHOLOGY NORMAL 12/03/2024 10:56 AM T [facility] LYMPHOCYTES % 35.0 15.8 - 45.0 % 12/03/2024 10:56 AM T [facility] NEUTROPHILS % 54.0 42.1 - 71.9 % 12/03/2024 10:56 AM T [facility] MONOCYTES % 6.5 5.7 - 12.5 % 12/03/2024 10:56 AM CDT [facility] EOSINOPHILS 3.1 0.0 - 5.6 % 12/03/2024 10:56 AM T [facility] BASOPHILS 1.0 0.0 - 1.3 % 12/03/2024 10:56 AM CDT [facility] ABS. NEUTROPHILS 3.96 1.40 - 6.00 x10'3/uL 12/03/2024 10:56 AM CDT [facility] IMMATURE GRANS % 0.4 0.0 - 0.5 % 12/03/2024 10:56 AM CDT [facility] ABS. LYMPHOCYTES 2.57 0.80 - 4.70 x10'3/uL 12/03/2024 10:56 AM CDT [facility] 12/03/2024 10:3 6 AM CDT us Gerber Maher MD LABORATORY Final Result [facility] [address] [place] [address], [place] [phone] * THYROXINE, FREE (FT4) (11/19/2024 11:04 AM INFANT AND TODDLER TEACHER) FREE T4 1.01 0.76 - 1.46 NG/DL 11/19/2024 12:12 PM INFANT AND TODDLER TEACHER [facility] 11/19/2024 11:0 4 AM INFANT AND TODDLER TEACHER us Willa Smith MD LABORATORY Final Result Performing Organization Address [facility] Co de Phone Number [facility] [address] [place] [address], [place] [phone] * THYROID STIM HORMONE TSH (11/19/2024 11:04 AM INFANT AND TODDLER TEACHER) TSH 2.400 0.358 - 3.74 uIU/ML 11/19/2024 12:12 PM INFANT AND TODDLER TEACHER [facility] Comment: HIGH DOSES OF BIOTIN MAY INTERFERE WITH THIS TEST RESULT. CORRELATION TO CLINICAL HISTORY AND PRESENTATION RECOMMENDED. 11/19/2024 11:0 4 AM INFANT AND TODDLER TEACHER us Willa Smith MD LABORATORY Final Result Performing Organization Address [facility]/ZIP Co de Phone Number [facility] [address] [place] [address], [place] [phone] * TROPONIN, QUANT (10/23/2024 8:08 PM INFANT AND TODDLER TEACHER) Only the most recent of2 resultswithin the time period is included. TROPONIN I HIGH SENSITIVITY 5 <54 ng/L 10/23/2024 8:51 PM INFANT AND TODDLER TEACHER [facility] Comment: HIGH DOSES OF BIOTIN, TROPONIN-SPECIFIC AUTOANTIBODIES, AND ANTIBODY THERAPY CONTAINING HAMA MAY INTERFERE WITH THIS TEST RESULT. CORRELATION TO CLINICAL HISTORY AND PRESENTATION RECOMMENDED. 10/23/2024 8:08 PM INFANT AND TODDLER TEACHER Harish Alfredo MD,PHD LABORATORY Final Resu lt [facility] [address] [place] [address], [place] [phone] * ECG 12 lead (10/23/2024 8:04 PM INFANT AND TODDLER TEACHER) Only the most recent of2 resultswithin the time period is included. 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1950 Requested By: NANO POLK Order Number: [id number] Reading MD: Jaimie Soares Measurements Intervals Sherman Rate: 73 P: 16 AL: 253 QRS: 22 QRSD: 96 T: 29 QT: 367 QTc: 407 Interpretive Statements SINUS RHYTHM WITH FIRST DEGREE AV BLOCK LOW QRS VOLTAGE IN PRECORDIAL LEADS [QRS DEFLECTION < 1.0 mV IN CHEST LEADS] NT AND TODDLER TEACHER Procedure Note Jaimie Soares MD - 10/24/[address] Test Date: 2024-10-23 Pat Name: AYAKA RECINOS Department: 41 Room: [facility] Gender: Female 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: [id number] : 1950 Requested By: NANO POLK Order Number: [id number] Reading MD: Jaimie Soares Measurements Intervals Sherman Rate: 73 P: 16 AL: 253 QRS: 22 QRSD: 96 T: 29 QT: 367 QTc: 407 Interpretive Statements SINUS RHYTHM WITH FIRST DEGREE AV BLOCK LOW QRS VOLTAGE IN PRECORDIAL LEADS [QRS DEFLECTION < 1.0 mV IN CHESTLEADS] NT AND TODDLER TEACHER us Harish Alfredo MD,PHD ECG ORDERABLES Final Resu lt [facility] ([facility]) RAD * XR CHEST PORTABLE (10/23/2024 3:58 PM INFANT AND TODDLER TEACHER) Anatomical Region Laterality Modality Chest Radiographic Gena ging 10/23/2024 4:07 PM INFANT AND TODDLER TEACHER Impressions 10/23/2024 4:11 PM INFANT AND TODDLER TEACHER IMPRESSION: No acute findings. Referred By: Interpreted By: Shahid Napier MD, 10/23/2024 4:07 PM Narrative 10/23/2024 4:11 PM INFANT AND TODDLER TEACHER [address] [address] EXAM: XR CHEST PORTABLE DATE: 10/23/2024 1552 hours Comparison 03/06/2024 INDICATION: Left arm pain and acid reflux for 2-3 weeks. TECHNIQUE: One view FINDINGS: Normal heart and pulmonary vessel size. The lungs are clear. No pleural effusion. Cervical fusion and right shoulder arthroplasty. Procedure Note Shahid Napier MD - 10/23/2024 [facility] [address] [place], [place] [address] EXAM: XR CHEST PORTABLE DATE: 10/23/2024 1552 hours Comparison 03/06/2024 INDICATION: Left arm pain and acid reflux for 2-3 weeks. TECHNIQUE: One view FINDINGS: Normal heart and pulmonary vessel size. The lungs are clear.No pleural effusion. Cervical fusion and right shoulder arthroplasty. IMPRESSION: No acute findings. Referred By: Interpreted By: Shahid Napier MD, 10/23/2024 4:07 PM us Harish Alfredo MD,PHD GENERAL IMAGING Final Resu lt * (ABNORMAL) COMPREHENSIVE METABOLIC PANEL (10/23/2024 3:55 PM INFANT AND TODDLER TEACHER) GLUCOSE 120(H) 70 - 99 MG/DL 10/23/2024 4:46 PM INFANT AND TODDLER TEACHER [facility] BUN 23(H) 7 - 18 MG/DL 10/23/2024 4:46 PM INFANT AND TODDLER TEACHER [facility] CREATININE S/P/B 1.94(H) 0.55 - 1.02 MG/DL 10/23/2024 4:46 PM INFANT AND TODDLER TEACHER [facility] SODIUM S/P/B 133(L) 136 - 145 MMOL/L 10/23/2024 4:46 PM INFANT AND TODDLER TEACHER [facility] POTASSIUM S/P/B 4.6 3.5 - 5.1 MMOL/L 10/23/2024 4:46 PM INFANT AND TODDLER TEACHER [facility] CHLORIDE S/P/B 100 97 - 115 MMOL/L 10/23/2024 4:46 PM INFANT AND TODDLER TEACHER [facility] CO2 27.0 21 - 32 MMOL/L 10/23/2024 4:46 PM INFANT AND TODDLER TEACHER [facility] CALCIUM S/P/B 9.6 8.5 - 10.1 MG/DL 10/23/2024 4:46 PM [facility] BILIRUBIN TOTAL S/P/B 0.4 0.2 - 1.2 MG/DL 10/23/2024 4:46 PM [facility] Comment: THIS ASSAY IS NOT RECOMMENDED FOR PATIENTS UNDERGOING TREATMENT WITH ELTROMBOPAG DUE TO THE POTENTIAL FOR FALSELY ELEVATED RESULTS. TOTAL PROTEIN S/P/B 6.9 6.4 - 8.2 G/DL 10/23/2024 4:46 PM [facility] ALBUMIN S/P/B 3.6 3.4 - 5.0 G/DL 10/23/2024 4:46 PM [facility] AST 25 15 - 37 U/L 10/23/2024 4:46 PM [facility] ALT 21 14 - 55 U/L 10/23/2024 4:46 PM [facility] ALKALINE PHOSPHATASE S/P/B 125 50 - 136 U/L 10/23/2024 4:46 PM [facility] ANION GAP 6.0 2 - 10 MMOL/L 10/23/2024 4:46 PM [facility] BUN CREATININE RATIO 11.9 6 - 26 10/23/2024 4:46 PM [facility] A/G RATIO 1.1 1.0 - 2.0 RATIO 10/23/2024 4:46 PM [facility] GFR ESTIMATE 27(L) >90 ML/MIN/1.7 3 M2 10/23/2024 4:46 PM [facility] Comment: NOTE: eGFR is not calculated for patients <18 years of age or gender unknown. This is an estimated GFR calculation using the new CKD EPI creatinine equation without race and so does not require a correction factor for race. This estimated GFR should not be used for calculating drug doses. 10/23/2024 3:55 PM INFANT AND TODDLER TEACHER us Harish Alfredo MD,PHD LABORATORY Final Resu lt [facility] [address] [place] [address], * CT CERV SPINE WO CON (10/18/2024 8:49 AM INFANT AND TODDLER TEACHER) Only the most recent of2 resultswithin the time period is included. Anatomical Region Laterality Modality Spine Computed Tomogra phy 10/22/2024 8:44 AM INFANT AND TODDLER TEACHER Impressions 10/22/2024 8:53 AM INFANT AND TODDLER TEACHER IMPRESSION: 1. Status post anterior plate screw fixation with interbody fusion at C3-C7. There is bony fusion across the C3-C7 disc spaces. The hardware is intact and unremarkable in alignment with no surrounding lucency 2. No acute osseous abnormality or interval change. 3. Moderate bilateral neural foraminal stenosis at C3/C4 and C4/C5, unchanged. Referred By: MINDY TAPIA Interpreted By: Pete Carpenter MD, 10/22/2024 8:44 AM Narrative 10/22/2024 8:53 AM INFANT AND TODDLER TEACHER [address] [address] EXAMINATION:CT cervical spine without contrast 10/18/2024 INDICATION:Status post cervical fusion TECHNIQUE: Axial CT images of the cervical spine were acquired without intravenous contrast. Sagittal coronal reformats were constructed. Radiation dose reduction techniques were used. COMPARISON: CT cervical spine 09/28/2024 FINDINGS:Cervical spine is in anatomic alignment with preservation of vertebral body heights and disc spaces. The lateral masses of C1 and C2 are well aligned. The dens is intact. The occipital condyles are intact No acute fracture or dislocation. No spondylolisthesis or focal bony lesion. Hardware appears to be intact and unremarkable in alignment with no surrounding lucency. There is bony bridging across the C3. C7 disc spaces. No stenosis at the foramen magnum or C1/C2 level C2/C3: Disc space narrowing and facet arthropathy causing mild bilateral foraminal stenosis C3/C4: Uncovertebral facet arthropathy causing moderate bilateral foraminal stenosis C4/C5: Uncovertebral and facet arthropathy causing moderate bilateral foraminal stenosis C5/C6: Uncovertebral and facet arthropathy causing mild right neural foraminal stenosis. C6/C7: Mild facet arthropathy C7/T1: Disc space narrowing, which arthropathy and facet arthropathy causing mild bilateral neural foraminal stenosis No prevertebral edema. No paraspinal mass or fluid collection. There is a 1.1 cm hypodense nodule within the right lobe of the thyroid gland, unchanged. Procedure Note Pete Carpenter MD - 10/22/[address] [address] EXAMINATION:CT cervical spine without contrast 10/18/2024 INDICATION:Status post cervical fusion TECHNIQUE: Axial CT images of the cervical spine were acquired withoutintravenous contrast. Sagittal coronal reformats were constructed.Radiation dose reduction techniques were used. COMPARISON: CT cervical spine 09/28/2024 FINDINGS:Cervical spine is in anatomic alignment with preservation ofvertebral body heights and disc spaces. The lateral masses of C1 and C2are well aligned. The dens is intact. The occipital condyles areintact No acute fracture or dislocation. No spondylolisthesis or focal bonylesion. Hardware appears to be intact and unremarkable in alignment with nosurrounding lucency. There is bony bridging across the C3. C7 discspaces. No stenosis at the foramen magnum or C1/C2 level C2/C3: Disc space narrowing and facet arthropathy causing mild bilateralforaminal stenosis C3/C4: Uncovertebral facet arthropathy causing moderate bilateralforaminal stenosis C4/C5: Uncovertebral and facet arthropathy causing moderate bilateralforaminal stenosis C5/C6: Uncovertebral and facet arthropathy causing mild right neuralforaminal stenosis. C6/C7: Mild facet arthropathy C7/T1: Disc space narrowing, which arthropathy and facet arthropathycausing mild bilateral neural foraminal stenosis No prevertebral edema. No paraspinal mass or fluid collection. There payam 1.1 cm hypodense nodule within the right lobe of the thyroid gland,unchanged. IMPRESSION: 1. Status post anterior plate screw fixation with interbody fusion atC3-C7. There is bony fusion across the C3-C7 disc spaces. The hardwareis intact and unremarkable in alignment with no surrounding lucency 2. No acute osseous abnormality or interval change. 3. Moderate bilateral neural foraminal stenosis at C3/C4 and C4/C5,unchanged. Referred By: MINDY TAPIA Interpreted By: Pete Carpenter MD, 10/22/2024 8:44 AM us Mindy Tapia RESEARCH PROFESSOR OF BIOSTATISTICS CT Final Resu lt * SUTURE REMOVAL (10/04/2024 9:40 AM INFANT AND TODDLER TEACHER) Narrative Ann Koenig MD - 10/04/2024 9:40 AM INFANT AND TODDLER TEACHER Ann Koenig MD 10/04/2024 10:46 AM Suture Removal Date/Time: 10/04/2024 9:40 AM Performed by: Ann Koenig MD Authorized by: Ann Koenig MD Body area: head/neck Location details: nose Wound Appearance: clean Sutures Removed: 2 Post-removal: Steri-Strips applied Facility: sutures placed in this facility Patient tolerance: patient tolerated the procedure well with no immediate complications Ann Koenig MD PROCEDURE/MINOR SURGICAL ORDER [id number] Final Result * XR KNEE RT 3V (09/28/2024 1:16 PM INFANT AND TODDLER TEACHER) Anatomical Region Laterality Modality Knee Radiographic Gena ging 09/28/2024 1:19 PM INFANT AND TODDLER TEACHER Impressions 09/28/2024 1:22 PM INFANT AND TODDLER TEACHER IMPRESSION: 1. No acute osseous findings. 2. Moderate bilateral tricompartmental osteoarthritis. Ordered By: NADEEM MEADOWS Interpreted By: Chava Gaspar MD, 09/28/2024 1:19 PM Narrative 09/28/2024 1:22 PM INFANT AND TODDLER TEACHER [facility] [address] [place] [address] XR KNEE LT 3V, XR KNEE RT 3V INDICATION: Fall directly on to knees, R>L pain TECHNIQUE: AP, lateral, and sunrise views of the bilateral knees. 6 total images obtained. COMPARISON: Bilateral knee radiographs 11/24/2023. FINDINGS: Left knee: Osseous structures appear intact without convincing evidence for acute fracture or dislocation. There is moderate tricompartmental osteoarthritis, greatest in the medial compartment joint space narrowing and periarticular osteophytes. No significant joint effusion. Superior and inferior pole patellar enthesophytes. Os fabella. Mild spurring of the anterior tibial spine. No aggressive osseous lesion. Right knee: Osseous structures appear intact without convincing evidence for acute fracture or dislocation. There is moderate tricompartmental osteoarthritis with associated joint space narrowing and periarticular osteophytes. No significant joint effusion. Superior pole patellar spurring with heterotopic ossification seen within the distal quadriceps tendon insertion, similar to prior. Procedure Note Chava Gaspar MD - 09/28/2024 [facility] [address] [place] [address] XR KNEE LT 3V, XR KNEE RT 3V INDICATION: Fall directly on to knees, R>L pain TECHNIQUE: AP, lateral, and sunrise views of the bilateral knees. 6 totalimages obtained. COMPARISON: Bilateral knee radiographs 11/24/2023. FINDINGS: Left knee: Osseous structures appear intact without convincing evidence for acutefracture or dislocation. There is moderate tricompartmentalosteoarthritis, greatest in the medial compartment joint space narrowingand periarticular osteophytes. No significant joint effusion. Superior andinferior pole patellar enthesophytes. Os fabella. Mild spurring of theanterior tibial spine. No aggressive osseous lesion. Right knee: Osseous structures appear intact without convincing evidence for acutefracture or dislocation. There is moderate tricompartmental osteoarthritiswith associated joint space narrowing and periarticular osteophytes. Nosignificant joint effusion. Superior pole patellar spurring withheterotopic ossification seen within the distal quadriceps tendoninsertion, similar to prior. IMPRESSION: 1. No acute osseous findings. 2. Moderate bilateral tricompartmental osteoarthritis. Ordered By: NADEEM MEADOWS Interpreted By: Chava Gaspar MD, 09/28/2024 1:19 PM us Nadeem Meadows MD GENERAL IMAGING Final Result * XR KNEE LT 3V (09/28/2024 1:16 PM INFANT AND TODDLER TEACHER) Anatomical Region Laterality Modality Knee Radiographic Gena ging 09/28/2024 1:19 PM INFANT AND TODDLER TEACHER Impressions 09/28/2024 1:22 PM INFANT AND TODDLER TEACHER IMPRESSION: 1. No acute osseous findings. 2. Moderate bilateral tricompartmental osteoarthritis. Ordered By: NADEEM MEADOWS Interpreted By: Chava Gaspar MD, 09/28/2024 1:19 PM Narrative 09/28/2024 1:22 PM INFANT AND TODDLER TEACHER [facility] [address] [place] [id number] XR KNEE LT 3V, XR KNEE RT 3V INDICATION: Fall directly on to knees, R>L pain TECHNIQUE: AP, lateral, and sunrise views of the bilateral knees. 6 total images obtained. COMPARISON: Bilateral knee radiographs 11/24/2023. FINDINGS: Left knee: Osseous structures appear intact without convincing evidence for acute fracture or dislocation. There is moderate tricompartmental osteoarthritis, greatest in the medial compartment joint space narrowing and periarticular osteophytes. No significant joint effusion. Superior and inferior pole patellar enthesophytes. Os fabella. Mild spurring of the anterior tibial spine. No aggressive osseous lesion. Right knee: Osseous structures appear intact without convincing evidence for acute fracture or dislocation. There is moderate tricompartmental osteoarthritis with associated joint space narrowing and periarticular osteophytes. No significant joint effusion. Superior pole patellar spurring with heterotopic ossification seen within the distal quadriceps tendon insertion, similar to prior. Procedure Note Chava Gaspar MD - 09/28/2024 [facility] [address] [place] [address] XR KNEE LT 3V, XR KNEE RT 3V INDICATION: Fall directly on to knees, R>L pain TECHNIQUE: AP, lateral, and sunrise views of the bilateral knees. 6 totalimages obtained. COMPARISON: Bilateral knee radiographs 11/24/2023. FINDINGS: Left knee: Osseous structures appear intact without convincing evidence for acutefracture or dislocation. There is moderate tricompartmentalosteoarthritis, greatest in the medial compartment joint space narrowingand periarticular osteophytes. No significant joint effusion. Superior andinferior pole patellar enthesophytes. Os fabella. Mild spurring of theanterior tibial spine. No aggressive osseous lesion. Right knee: Osseous structures appear intact without convincing evidence for acutefracture or dislocation. There is moderate tricompartmental osteoarthritiswith associated joint space narrowing and periarticular osteophytes. Nosignificant joint effusion. Superior pole patellar spurring withheterotopic ossification seen within the distal quadriceps tendoninsertion, similar to prior. IMPRESSION: 1. No acute osseous findings. 2. Moderate bilateral tricompartmental osteoarthritis. Ordered By: NADEEM MEADOWS Interpreted By: Chava Gaspar MD, 09/28/2024 1:19 PM us Nadeem Meadows MD GENERAL IMAGING Final Result * CT THOR SPINE WO CON (09/28/2024 1:09 PM INFANT AND TODDLER TEACHER) Anatomical Region Laterality Modality Spine Computed Tomogra phy 09/28/2024 1:53 PM INFANT AND TODDLER TEACHER Impressions 09/28/2024 1:58 PM INFANT AND TODDLER TEACHER IMPRESSION: 1. No definite acute fractures identified in the thoracic or lumbar spine. 2. Multilevel degenerative changes. Ordered By: NADEEM MEADOWS Interpreted By: Theo Baxter MD, 09/28/2024 1:53 PM Narrative 09/28/2024 1:58 PM INFANT AND TODDLER TEACHER [facility] [address] [place] [address] DATE: 09/28/2024 12:41 PM INDICATION: Fall. Pain. EXAMINATION: CT examinations of the thoracic and lumbar spine. TECHNIQUE: CT examinations of the thoracic and lumbar spine were performed with axial and multiplanar reformatted images obtained. A dose lowering technique was used for this procedure, which may include, but is not limited to, dose reduction technique, automated exposure control, the use of iterative reconstruction, and ALARA (As Low As Reasonably Achievable) / Image Gently techniques. COMPARISON: s MRI 05/07/2024 FINDINGS: THORACIC SPINE: There is slight anterolisthesis of T2 on T3. Otherwise the thoracic vertebral alignment, vertebral body heights, and facet alignment are maintained. Multilevel flowing osteophytosis noted throughout the thoracic levels with relatively preserved disc height, suggestive of DISH. No definite acute fractures identified in the thoracic spine. Degenerative changes are evident in the thoracic spine with disc degeneration, endplate osteophytes, and facet hypertrophy noted. Partially imaged postsurgical and degenerative changes in the cervical spine, described in greater detail on the separately reported cervical spine CT. LUMBAR SPINE: There are 5 nonrib-bearing lumbar-type vertebral levels identified. Slight retrolisthesis of L2 on L3. Otherwise the lumbar vertebral alignment, vertebral body heights, and facet alignment are maintained. No definite acute fractures identified in the lumbar spine. Multilevel degenerative changes are evident in the lumbar spine with disc degeneration, endplate osteophytes, ligamentum flavum thickening, and facet hypertrophy noted. Most severe spinal canal stenosis evident at L2-L3 and L3-L4. Most severe foraminal narrowing at L4-L5 and L5-S1. SOFT TISSUES Partially imaged right shoulder arthroplasty. Cardiomegaly. Atherosclerotic calcifications noted along the aorta and its branches. Coronary artery calcifications. Cholecystectomy. Colonic diverticulosis. Procedure Note Theo Baxter MD - 09/28/2024 [facility] [address] [place] [address] DATE: 09/28/2024 12:41 PM INDICATION: Fall. Pain. EXAMINATION: CT examinations of the thoracic and lumbar spine. TECHNIQUE: CT examinations of the thoracic and lumbar spine were performed with axialand multiplanar reformatted images obtained. A dose lowering technique was used for this procedure, which may include,but is not limited to, dose reduction technique, automated exposurecontrol, the use of iterative reconstruction, and ALARA (As Low AsReasonably Achievable) / Image Gently techniques. COMPARISON: s MRI 05/07/2024 FINDINGS: THORACIC SPINE: There is slight anterolisthesis of T2 on T3. Otherwise the thoracicvertebral alignment, vertebral body heights, and facet alignment aremaintained. Multilevel flowing osteophytosis noted throughout the thoraciclevels with relatively preserved disc height, suggestive of DISH. Nodefinite acute fractures identified in the thoracic spine. Degenerativechanges are evident in the thoracic spine with disc degeneration, endplateosteophytes, and facet hypertrophy noted. Partially imaged postsurgicaland degenerative changes in the cervical spine, described in greaterdetail on the separately reported cervical spine CT. LUMBAR SPINE: There are 5 nonrib-bearing lumbar-type vertebral levels identified. Slightretrolisthesis of L2 on L3. Otherwise the lumbar vertebral alignment,vertebral body heights, and facet alignment are maintained. No definiteacute fractures identified in the lumbar spine. Multilevel degenerativechanges are evident in the lumbar spine with disc degeneration, endplateosteophytes, ligamentum flavum thickening, and facet hypertrophy noted.Most severe spinal canal stenosis evident at L2-L3 and L3-L4. Most severeforaminal narrowing at L4-L5 and L5-S1. SOFT TISSUES Partially imaged right shoulder arthroplasty. Cardiomegaly.Atherosclerotic calcifications noted along the aorta and its branches.Coronary artery calcifications. Cholecystectomy. Colonic diverticulosis. IMPRESSION: 1. No definite acute fractures identified in the thoracic or lumbarspine. 2. Multilevel degenerative changes. Ordered By: NADEEM MEADOWS Interpreted By: Theo Baxter MD, 09/28/2024 1:53 PM us Nadeem Meadosw MD CT Final Result * CT LUMB SPINE WO CON (09/28/2024 1:09 PM [employer]) Anatomical Region Laterality Modality Spine Computed Tomogra phy 09/28/2024 1:53 PM [employer] TE[employer] Impressions 09/28/2024 1:58 PM [employer] IMPRESSION: 1. No definite acute fractures identified in the thoracic or lumbar spine. 2. Multilevel degenerative changes. Ordered By: NADEEM MEADOWS Interpreted By: Theo Baxter MD, 09/28/2024 1:53 PM Narrative 09/28/2024 1:58 PM [employer] [facility] [address] [place] [address] DATE: 09/28/2024 12:41 PM INDICATION: Fall. Pain. EXAMINATION: CT examinations of the thoracic and lumbar spine. TECHNIQUE: CT examinations of the thoracic and lumbar spine were performed with axial and multiplanar reformatted images obtained. A dose lowering technique was used for this procedure, which may include, but is not limited to, dose reduction technique, automated exposure control, the use of iterative reconstruction, and ALARA (As Low As Reasonably Achievable) / Image Gently techniques. COMPARISON: s MRI 05/07/2024 FINDINGS: THORACIC SPINE: There is slight anterolisthesis of T2 on T3. Otherwise the thoracic vertebral alignment, vertebral body heights, and facet alignment are maintained. Multilevel flowing osteophytosis noted throughout the thoracic levels with relatively preserved disc height, suggestive of DISH. No definite acute fractures identified in the thoracic spine. Degenerative changes are evident in the thoracic spine with disc degeneration, endplate osteophytes, and facet hypertrophy noted. Partially imaged postsurgical and degenerative changes in the cervical spine, described in greater detail on the separately reported cervical spine CT. LUMBAR SPINE: There are 5 nonrib-bearing lumbar-type vertebral levels identified. Slight retrolisthesis of L2 on L3. Otherwise the lumbar vertebral alignment, vertebral body heights, and facet alignment are maintained. No definite acute fractures identified in the lumbar spine. Multilevel degenerative changes are evident in the lumbar spine with disc degeneration, endplate osteophytes, ligamentum flavum thickening, and facet hypertrophy noted. Most severe spinal canal stenosis evident at L2-L3 and L3-L4. Most severe foraminal narrowing at L4-L5 and L5-S1. SOFT TISSUES Partially imaged right shoulder arthroplasty. Cardiomegaly. Atherosclerotic calcifications noted along the aorta and its branches. Coronary artery calcifications. Cholecystectomy. Colonic diverticulosis. Procedure Note Theo Baxter MD - 09/28/2024 [facility] [address] [place] [address] DATE: 09/28/2024 12:41 PM INDICATION: Fall. Pain. EXAMINATION: CT examinations of the thoracic and lumbar spine. TECHNIQUE: CT examinations of the thoracic and lumbar spine were performed with axialand multiplanar reformatted images obtained. A dose lowering technique was used for this procedure, which may include,but is not limited to, dose reduction technique, automated exposurecontrol, the use of iterative reconstruction, and ALARA (As Low AsReasonably Achievable) / Image Gently techniques. COMPARISON: s MRI 05/07/2024 FINDINGS: THORACIC SPINE: There is slight anterolisthesis of T2 on T3. Otherwise the thoracicvertebral alignment, vertebral body heights, and facet alignment aremaintained. Multilevel flowing osteophytosis noted throughout the thoraciclevels with relatively preserved disc height, suggestive of DISH. Nodefinite acute fractures identified in the thoracic spine. Degenerativechanges are evident in the thoracic spine with disc degeneration, endplateosteophytes, and facet hypertrophy noted. Partially imaged postsurgicaland degenerative changes in the cervical spine, described in greaterdetail on the separately reported cervical spine CT. LUMBAR SPINE: There are 5 nonrib-bearing lumbar-type vertebral levels identified. Slightretrolisthesis of L2 on L3. Otherwise the lumbar vertebral alignment,vertebral body heights, and facet alignment are maintained. No definiteacute fractures identified in the lumbar spine. Multilevel degenerativechanges are evident in the lumbar spine with disc degeneration, endplateosteophytes, ligamentum flavum thickening, and facet hypertrophy noted.Most severe spinal canal stenosis evident at L2-L3 and L3-L4. Most severeforaminal narrowing at L4-L5 and L5-S1. SOFT TISSUES Partially imaged right shoulder arthroplasty. Cardiomegaly.Atherosclerotic calcifications noted along the aorta and its branches.Coronary artery calcifications. Cholecystectomy. Colonic diverticulosis. IMPRESSION: 1. No definite acute fractures identified in the thoracic or lumbarspine. 2. Multilevel degenerative changes. Ordered By: NADEEM MEADOWS Interpreted By: Theo Baxter MD, 09/28/2024 1:53 PM Nadeem Meadows MD CT Final Result * CT HEAD WO CON (09/28/2024 1:09 PM [employer]) Anatomical Region Laterality Modality Head Computed Tomogra phy 09/28/2024 1:25 PM [employer] Impressions 09/28/2024 1:33 PM [employer] IMPRESSION: CT HEAD: 1. No definite CT evidence of acute intracranial abnormality, as above. 2. Small vessel disease and volume loss. CT FACIAL BONES: 1. Acute mildly displaced nasal bone fractures with overlying soft tissue edema and foci of soft tissue gas. CT CERVICAL SPINE: 1. No definite acute fractures identified in the cervical spine. 2. Post surgical multilevel degenerative changes. Ordered By: NADEEM MEADOWS Interpreted By: Theo Baxter MD, 09/28/2024 1:25 PM Narrative 09/28/2024 1:33 PM [employer] [facility] [address] [place] [address] DATE: 09/28/2024 12:41 PM EXAMINATION: CT of the head, facial bones, and cervical spine without contrast CLINICAL HISTORY: Fall. Trauma. COMPARISON: Head, cervical spine, and neck CT exams 08/29/2023 TECHNIQUE: CT examinations of the head, facial bones, and cervical spine were performed without contrast. Axial and multiplanar images obtained. A dose lowering technique was used for this procedure, which may include, but is not limited to, dose reduction technique, automated exposure control, the use of iterative reconstruction, and ALARA (As Low As Reasonably Achievable) / Image Gently techniques. FINDINGS: CT HEAD: No acute intracranial hemorrhage, extra-axial collections, intracranial mass effect, or midline shift. Stable small vessel disease, intracranial vascular calcifications, and volume loss. No definite CT evidence of acute territorial infarction, though MRI would be more sensitive. No depressed calvarial fractures. Mastoid air cells clear. CT FACIAL BONES: There are acute mildly displaced nasal bone fractures with overlying soft tissue edema and foci of soft tissue gas. The orbital curiel, paranasal sinuses, zygomatic arches, pterygoid plates, and mandible are without evidence of acute fracture. No intraorbital hematoma or extraocular muscle entrapment. Anterior cranial fossa floor and cribriform plate intact. Bilateral temporomandibular joint arthritis. Maxilla is edentulous. Streak artifact from mandibular dental hardware/amalgam somewhat obscures assessment. CT CERVICAL SPINE: There are postsurgical changes of multilevel anterior cervical discectomy from C3 through C7. There is at least partial ankylosis of the C3-C6 disc spaces. There is incomplete ankylosis of the C6-C7 disc space. The anterior fixation hardware is intact and without evidence of fracture or loosening. Straightening of the cervical lordosis. Slight anterolisthesis of T2 on T3 more so than C7 on T1. Otherwise the cervical vertebral alignment, vertebral body heights, and facet alignment are maintained. No definite acute fractures identified in the cervical spine. Multilevel degenerative changes are evident in the cervical spine with disc degeneration, endplate/uncovertebral osteophytes, and facet hypertrophy noted. Imaged portions of the neck soft tissues reveal no acute findings. Scattered atherosclerotic vascular calcifications. Small thyroid nodules, none measuring greater than 1.5 cm; no specific follow-up recommendations per ACR white paper guidelines. Procedure Note Theo Baxter MD - 09/28/2024 [facility] [address] [place] [address] DATE: 09/28/2024 12:41 PM EXAMINATION: CT of the head, facial bones, and cervical spine withoutcontrast CLINICAL HISTORY: Fall. Trauma. COMPARISON: Head, cervical spine, and neck CT exams 08/29/2023 TECHNIQUE: CT examinations of the head, facial bones, and cervical spinewere performed without contrast. Axial and multiplanar images obtained. A dose lowering technique was used for this procedure, which may include,but is not limited to, dose reduction technique, automated exposurecontrol, the use of iterative reconstruction, and ALARA (As Low AsReasonably Achievable) / Image Gently techniques. FINDINGS: CT HEAD: No acute intracranial hemorrhage, extra-axial collections, intracranialmass effect, or midline shift. Stable small vessel disease, intracranialvascular calcifications, and volume loss. No definite CT evidence of acuteterritorial infarction, though MRI would be more sensitive. No depressedcalvarial fractures. Mastoid air cells clear. CT FACIAL BONES: There are acute mildly displaced nasal bone fractures with overlying softtissue edema and foci of soft tissue gas. The orbital curiel, paranasalsinuses, zygomatic arches, pterygoid plates, and mandible are withoutevidence of acute fracture. No intraorbital hematoma or extraocular muscleentrapment. Anterior cranial fossa floor and cribriform plate intact.Bilateral temporomandibular joint arthritis. Maxilla is edentulous. Streakartifact from mandibular dental hardware/amalgam somewhat obscuresassessment. CT CERVICAL SPINE: There are postsurgical changes of multilevel anterior cervical discectomyfrom C3 through C7. There is at least partial ankylosis of the C3-C6 discspaces. There is incomplete ankylosis of the C6-C7 disc space. Theanterior fixation hardware is intact and without evidence of fracture orloosening. Straightening of the cervical lordosis. Slight anterolisthesisof T2 on T3 more so than C7 on T1. Otherwise the cervical vertebralalignment, vertebral body heights, and facet alignment are maintained. Nodefinite acute fractures identified in the cervical spine. Multileveldegenerative changes are evident in the cervical spine with discdegeneration, endplate/uncovertebral osteophytes, and facet hypertrophynoted. Imaged portions of the neck soft tissues reveal no acute findings.Scattered atherosclerotic vascular calcifications. Small thyroid nodules,none measuring greater than 1.5 cm; no specific follow-up recommendationsper ACR white paper guidelines. IMPRESSION: CT HEAD: 1. No definite CT evidence of acute intracranial abnormality, as above. 2. Small vessel disease and volume loss. CT FACIAL BONES: 1. Acute mildly displaced nasal bone fractures with overlying soft tissueedema and foci of soft tissue gas. CT CERVICAL SPINE: 1. No definite acute fractures identified in the cervical spine. 2. Post surgical multilevel degenerative changes. Ordered By: NADEEM MEADOWS Interpreted By: Theo Baxter MD, 09/28/2024 1:25 PM us Nadeem Meadows MD CT Final Result * CT FACIAL BONES WO CON (09/28/2024 1:09 PM [employer]) Anatomical Region Laterality Modality Facial Computed Tomogra phy 09/28/2024 1:25 PM [employer] Impressions 09/28/2024 1:33 PM [employer] IMPRESSION: CT HEAD: 1. No definite CT evidence of acute intracranial abnormality, as above. 2. Small vessel disease and volume loss. CT FACIAL BONES: 1. Acute mildly displaced nasal bone fractures with overlying soft tissue edema and foci of soft tissue gas. CT CERVICAL SPINE: 1. No definite acute fractures identified in the cervical spine. 2. Post surgical multilevel degenerative changes. Ordered By: NADEEM MEADOWS Interpreted By: Theo Baxter MD, 09/28/2024 1:25 PM Narrative 09/28/2024 1:33 PM [employer] [facility] [address] [place] [address] DATE: 09/28/2024 12:41 PM EXAMINATION: CT of the head, facial bones, and cervical spine without contrast CLINICAL HISTORY: Fall. Trauma. COMPARISON: Head, cervical spine, and neck CT exams 08/29/2023 TECHNIQUE: CT examinations of the head, facial bones, and cervical spine were performed without contrast. Axial and multiplanar images obtained. A dose lowering technique was used for this procedure, which may include, but is not limited to, dose reduction technique, automated exposure control, the use of iterative reconstruction, and ALARA (As Low As Reasonably Achievable) / Image Gently techniques. FINDINGS: CT HEAD: No acute intracranial hemorrhage, extra-axial collections, intracranial mass effect, or midline shift. Stable small vessel disease, intracranial vascular calcifications, and volume loss. No definite CT evidence of acute territorial infarction, though MRI would be more sensitive. No depressed calvarial fractures. Mastoid air cells clear. CT FACIAL BONES: There are acute mildly displaced nasal bone fractures with overlying soft tissue edema and foci of soft tissue gas. The orbital curiel, paranasal sinuses, zygomatic arches, pterygoid plates, and mandible are without evidence of acute fracture. No intraorbital hematoma or extraocular muscle entrapment. Anterior cranial fossa floor and cribriform plate intact. Bilateral temporomandibular joint arthritis. Maxilla is edentulous. Streak artifact from mandibular dental hardware/amalgam somewhat obscures assessment. CT CERVICAL SPINE: There are postsurgical changes of multilevel anterior cervical discectomy from C3 through C7. There is at least partial ankylosis of the C3-C6 disc spaces. There is incomplete ankylosis of the C6-C7 disc space. The anterior fixation hardware is intact and without evidence of fracture or loosening. Straightening of the cervical lordosis. Slight anterolisthesis of T2 on T3 more so than C7 on T1. Otherwise the cervical vertebral alignment, vertebral body heights, and facet alignment are maintained. No definite acute fractures identified in the cervical spine. Multilevel degenerative changes are evident in the cervical spine with disc degeneration, endplate/uncovertebral osteophytes, and facet hypertrophy noted. Imaged portions of the neck soft tissues reveal no acute findings. Scattered atherosclerotic vascular calcifications. Small thyroid nodules, none measuring greater than 1.5 cm; no specific follow-up recommendations per ACR white paper guidelines. Procedure Note Theo Baxter MD - 09/28/2024 [facility] [address] [place] [address] DATE: 09/28/2024 12:41 PM EXAMINATION: CT of the head, facial bones, and cervical spine withoutcontrast CLINICAL HISTORY: Fall. Trauma. COMPARISON: Head, cervical spine, and neck CT exams 08/29/2023 TECHNIQUE: CT examinations of the head, facial bones, and cervical spinewere performed without contrast. Axial and multiplanar images obtained. A dose lowering technique was used for this procedure, which may include,but is not limited to, dose reduction technique, automated exposurecontrol, the use of iterative reconstruction, and ALARA (As Low AsReasonably Achievable) / Image Gently techniques. FINDINGS: CT HEAD: No acute intracranial hemorrhage, extra-axial collections, intracranialmass effect, or midline shift. Stable small vessel disease, intracranialvascular calcifications, and volume loss. No definite CT evidence of acuteterritorial infarction, though MRI would be more sensitive. No depressedcalvarial fractures. Mastoid air cells clear. CT FACIAL BONES: There are acute mildly displaced nasal bone fractures with overlying softtissue edema and foci of soft tissue gas. The orbital curiel, paranasalsinuses, zygomatic arches, pterygoid plates, and mandible are withoutevidence of acute fracture. No intraorbital hematoma or extraocular muscleentrapment. Anterior cranial fossa floor and cribriform plate intact.Bilateral temporomandibular joint arthritis. Maxilla is edentulous. Streakartifact from mandibular dental hardware/amalgam somewhat obscuresassessment. CT CERVICAL SPINE: There are postsurgical changes of multilevel anterior cervical discectomyfrom C3 through C7. There is at least partial ankylosis of the C3-C6 discspaces. There is incomplete ankylosis of the C6-C7 disc space. Theanterior fixation hardware is intact and without evidence of fracture orloosening. Straightening of the cervical lordosis. Slight anterolisthesisof T2 on T3 more so than C7 on T1. Otherwise the cervical vertebralalignment, vertebral body heights, and facet alignment are maintained. Nodefinite acute fractures identified in the cervical spine. Multileveldegenerative changes are evident in the cervical spine with discdegeneration, endplate/uncovertebral osteophytes, and facet hypertrophynoted. Imaged portions of the neck soft tissues reveal no acute findings.Scattered atherosclerotic vascular calcifications. Small thyroid nodules,none measuring greater than 1.5 cm; no specific follow-up recommendationsper ACR white paper guidelines. IMPRESSION: CT HEAD: 1. No definite CT evidence of acute intracranial abnormality, as above. 2. Small vessel disease and volume loss. CT FACIAL BONES: 1. Acute mildly displaced nasal bone fractures with overlying soft tissueedema and foci of soft tissue gas. CT CERVICAL SPINE: 1. No definite acute fractures identified in the cervical spine. 2. Post surgical multilevel degenerative changes. Ordered By: NADEEM MEADOWS Interpreted By: Theo Baxter MD, 09/28/2024 1:25 PM Nadeem Meadows MD CT Final Result * HEMOGLOBIN, GLYCOSYLATED (09/11/2024) Pathologist [facility] [place] HGB A1C 6.0 % -[id number] [facility] 09/11/2024 Ann Koenig MD LABORATORY Final Result Performing Organization Address [facility] de Phone Number [phone] [facility] [address] [place] [address], [place] [phone] * DIABETIC RETINOPATHY EXAM (NEGATIVE) (12/21/2023) [facility] Scanned SCANNING Final Resu lt Performing Organization Address City/[facility] Co de Phone Number HS ONBASE * (ABNORMAL) LIPID PANEL (09/20/2023 8:52 AM [employer] TE[employer]ER) CHOLESTEROL 217(H) <200.0 MG/DL 09/20/2023 1:28 PM [employer] TE[employer]ER [facility] TRIGLYCERIDES 113 <150 MG/DL 09/20/2023 1:28 PM [employer] TE[employer]ER [facility] HDL 55 >40.0 MG/DL 09/20/2023 1:28 PM [employer] TE[employer] [facility] LDL (CALCULATED) 139(H) <100 MG/DL 09/20/2023 1:28 PM [facility] NON HDL CHOLESTEROL 162(H) <130 MG/DL 09/20/2023 1:28 PM [facility] CHOL/HDL RATIO 3.9 0.0 - 4.5 09/20/2023 1:28 PM [facility] VLDL CALCULATION 23 5 - 55 MG/DL 09/20/2023 1:28 PM [facility] LIPID INTERPRETATION 09/20/2023 1:28 PM [facility] Comment: [facility] REPORT RECOMMENDATIONS: ADULT CHILD LOW RISK: CHOLESTEROL <200 <170 TRIGLYCERIDE <150 --- HDL >=60 --- LDL <100 <110 BORDERLINE: CHOLESTEROL 200-239 170-199 TRIGLYCERIDE 150-199 --- HDL 40-59 --- LDL 100-159 110-129 HIGH RISK: CHOLESTEROL >=240 >=200 TRIGLYCERIDE >=200 --- HDL <40 --- LDL >=160 >=130 09/20/2023 8:52 AM [employer] TE[employer]ER Miriam Jaquez [facility] Final Re sult [facility] [address] [place] [address], * HEPATITIS C ANTIBODY (07/06/2022 11:23 AM CDT) HEPATITIS C AB NON-REACTI VE NON-REACTI VE 07/06/2022 3:36 PM CDT [facility] 07/06/2022 11:2 3 AM CDT Gerber Maher MD LABORATORY Final Result [facility] [address] [place] [address], * BONE DENSITY/DEXA (06/11/2016 11:05 AM CDT) Anatomical Region Laterality Modality Bone Bone Density 06/11/2016 11:0 5 AM CDT 06/11/2016 11:05 AM CDT Narrative 06/11/2016 11:11 AM CDT AYAKA RECINOS ADMIT/SERVICE DATE: 06/11/16 ACCT: [id number] DISCHARGE DATE: : 1950 SEX: F ORD SITE: [facility] PT TYPE: REG CLI ORDERING MD: ANTONIA SANDRA MD STUDY DATE REPORT # ORDER # EXT ORDER ID 06/11/16 [id number] PROC CODE: DEXASCAN PROCEDURE DESCRIPTION: XR DEXA SCAN IMAGING STUDIES: XR DEXA SCAN DATE: 06/11/2016 11:03 AM CLINICAL HISTORY: OTHER - BD, OSTEOPOROSIS SCREENING . HYSTERECTOMY AT AGE 24. NO CALCIUM THERAPY. FINDINGS: LUMBAR SPINE L2-L4: BMD: 1.296 G/SQ CM T-SCORE: 2.0 WHO CLASSIFICATION: VERY OSTEOPENIC FRACTURE RISK: MODERATE LEFT FEMORAL NECK: BMD: 0.828 T-SCORE: -0.2 WHO CLASSIFICATION: NORMAL YOUNG ADULT RANGE FRACTURE RISK: VERY LOW RECOMMENDATION. INSTIGATION OF CALCIUM REPLACEMENT THERAPY WITH REPEAT IMAGING IN 2 YEARS. ELECTRONICALLY SIGNED BY Gavin DOOLEY MD Procedure Note , Generic Conversion, - 07/19/2018 AYAKA RECINOS ADMIT/SERVICE DATE:06/11/16 ACCT: [id number] DISCHARGE DATE: : 1950 SEX: F ORD SITE: [facility] PT TYPE: REG CLI ORDERING MD:ANTONIA SANDRA MD STUDY DATE REPORT # ORDER # EXT ORDER ID 06/11/16 [id number] PROC CODE: DEXASCAN PROCEDURE DESCRIPTION: XR DEXA SCAN IMAGING STUDIES: XR DEXA SCAN DATE: 06/11/2016 11:03 AM CLINICAL HISTORY: OTHER - BD, OSTEOPOROSIS SCREENING . HYSTERECTOMY ATAGE 24. NO CALCIUM THERAPY. FINDINGS: LUMBAR SPINE L2-L4: BMD: 1.296 G/SQ CM T-SCORE: 2.0 WHO CLASSIFICATION: VERY OSTEOPENIC FRACTURE RISK: MODERATE LEFT FEMORAL NECK: BMD: 0.828 T-SCORE: -0.2 WHO CLASSIFICATION: NORMAL YOUNG ADULT RANGE FRACTURE RISK: VERY LOW RECOMMENDATION. INSTIGATION OF CALCIUM REPLACEMENT THERAPY WITH REPEATIMAGING IN 2 YEARS. 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 FOR HB BILLS FOR [facility] FOR [employer] Legal Documents 09/01/2021 6:55 AM RECVD & CMPLTD ATTY REQ. FOR HB BILLS FOR [facility] FOR [employer] Advance Directives and Living Will 06/25/2020 9:10 AM 04/29/06 HEALTH CARE SURROGATE Advance Directives and Living Will 06/25/2020 9:10 AM 04/29/06 LIVING WILL Advance Directives and Living Will 01/09/2019 12:00 AM LIVING WILL Advance Directives and Living Will 12/21/2018 12:00 AM LIVING WILL Advance Directives and Living Will 09/22/2018 12:00 AM LIVING WILL Advance Directives and Living Will 07/26/2018 12:00 AM LIVING WILL Advance Directives and Living Will 07/25/2018 12:00 AM LIVING WILL Advance Directives and Living Will 07/25/2018 12:00 AM ADVANCE DIRECTIVE INTENT Advance Directives and Living Will 07/25/2018 12:00 AM LIVING WILL Advance Directives and Living Will 07/13/2018 12:00 AM LIVING WILL Advance Directives and Living Will 07/13/2018 12:00 AM LIVING WILL Advance Directives and Living Will 07/10/2018 12:00 AM LIVING WILL Advance Directives and Living Will 07/10/2018 12:00 AM LIVING WILL Advance Directives and Living Will 03/14/2018 12:00 AM LIVING WILL Advance Directives and Living Will 03/14/2018 12:00 AM LIVING WILL Advance Directives and Living Will 02/10/2018 12:00 AM LIVING WILL Advance Directives and Living Will 02/10/2018 12:00 AM LIVING WILL Advance Directives and Living Will 12/08/2017 12:00 AM LIVING WILL Advance Directives and Living Will 12/08/2017 12:00 AM LIVING WILL Advance Directives and Living Will 11/07/2017 12:00 AM LIVING WILL Advance Directives and Living Will 11/07/2017 12:00 AM LIVING WILL Advance Directives and Living Will 09/18/2017 12:00 AM LIVING WILL Advance Directives and Living Will 09/18/2017 12:00 AM LIVING WILL Advance Directives and Living Will 05/05/2017 12:00 AM LIVING WILL Advance Directives and Living Will 05/05/2017 12:00 AM LIVING WILL Advance Directives and Living Will 01/19/2017 12:00 AM LIVING WILL Advance Directives and Living Will 01/19/2017 12:00 AM LIVING WILL Advance Directives and Living Will 10/15/2016 12:00 AM LIVING WILL Advance Directives and Living Will 09/02/2016 12:00 AM LIVING WILL Advance Directives and Living Will 09/02/2016 12:00 AM LIVING WILL Advance Directives and Living Will 09/01/2016 12:00 AM LIVING WILL Advance Directives and Living Will 09/01/2016 12:00 AM LIVING WILL Advance Directives and Living Will 08/26/2016 12:00 AM LIVING WILL Advance Directives and Living Will 08/26/2016 12:00 AM LIVING WILL Advance Directives and Living Will 07/06/2016 12:00 AM LIVING WILL Advance Directives and Living Will 07/06/2016 12:00 AM LIVING WILL Advance Directives and Living Will 07/01/2016 12:00 AM LIVING WILL Advance Directives and Living Will 07/01/2016 12:00 AM LIVING WILL Advance Directives and Living Will 06/11/2016 12:00 AM LIVING WILL Advance Directives and Living Will 06/11/2016 12:00 AM LIVING WILL Advance Directives and Living Will 06/02/2016 12:00 AM LIVING WILL Advance Directives and Living Will 06/02/2016 12:00 AM LIVING WILL Advance Directives and Living Will 05/18/2016 12:00 AM LIVING WILL Advance Directives and Living Will 05/18/2016 12:00 AM LIVING WILL Advance Directives and Living Will 04/26/2016 12:00 AM LIVING WILL Advance Directives and Living Will 04/26/2016 12:00 AM LIVING WILL Advance Directives and Living Will 03/16/2016 12:00 AM LIVING WILL Advance Directives and Living Will 03/16/2016 12:00 AM LIVING WILL Advance Directives and Living Will 12/03/2015 12:00 AM LIVING WILL Advance Directives and Living Will 12/03/2015 12:00 AM LIVING WILL Advance Directives and Living Will 12/03/2015 12:00 AM LIVING WILL Advance Directives and Living Will 12/03/2015 12:00 AM LIVING WILL Advance Directives and Living Will 09/25/2015 12:00 AM LIVING WILL Advance Directives and Living Will 09/25/2015 12:00 AM LIVING WILL Advance Directives and Living Will 08/14/2015 12:00 AM LIVING WILL Advance Directives and Living Will 08/14/2015 12:00 AM LIVING WILL Advance Directives and Living Will 07/03/2015 12:00 AM LIVING WILL Advance Directives and Living Will 07/03/2015 12:00 AM LIVING WILL Advance Directives and Living Will 06/09/2015 12:00 AM LIVING WILL Advance Directives and Living Will 06/09/2015 12:00 AM LIVING WILL Advance Directives and Living Will 05/20/2015 12:00 AM LIVING WILL Advance Directives and Living Will 05/20/2015 12:00 AM LIVING WILL Advance Directives and Living Will 05/05/2015 12:00 AM LIVING WILL Advance Directives and Living Will 05/05/2015 12:00 AM LIVING WILL Advance Directives and Living Will 04/30/2015 12:00 AM LIVING WILL Advance Directives and Living Will 04/30/2015 12:00 AM LIVING WILL * Full Code (Latest Code Status on File) Date Activated Date Inactivated Comments 09/05/2023 12:48 PM 02/06/2024 6:45 AM * Full Code Date Activated Date Inactivated Comments 08/30/2023 12:02 PM 08/31/2023 3:19 PM * Full Code Date Activated Date Inactivated Comments 08/23/2023 9:42 AM 08/29/2023 12:37 PM * Full Code Date Activated Date Inactivated Comments 08/16/2023 3:52 PM 08/18/2023 12:21 PM * Full Code Date Activated Date Inactivated Comments 11/15/2022 11:56 AM 11/15/2022 3:55 PM Care Teams Junior Accounting Clerk Relationship Specialty [place] [address] [place] [address] PCP - General FAMILY PRACTICE 12/27/22 Isidro Christianson MD Three [facility]. [address] [place] [address] [place] Battery Assembler Dry Cell CARDIOVASCULAR DISEASE 02/25/16 [place] [address] [place] [address] OTOLARYNGOLOGY 09/28/24 09/28/25
--- OUTSIDE RECORDS SUMMARY | 2024-12-04 17:07 | XMS_ITS | Referral Summary ---
Author Organization [facility] Address [address] [place] [address] Care Team Providers Care Musician Instrumental Name Role Phone Unavailable Primary Care Provider Unavailabl e Source Comments [facility],non-owned Affiliates and Associated Physician Practices is amultiple site organization consisting of ambulatory clinics and hospital sitesin [place], [place], [place] and [place]. This disclosure is being madepursuant to the Care Everywhere program and may not contain all information available regarding this patient. Last updated 18.[facility] Social History Tobacco Use Types Packs/Day Years Used Date Smoking Tobacco: Never Assessed Sex and Gender Information Value Date Recorded Sex Assigned at Not on file Gender Identity Not on file Sexual Orientation Not on file Plan of Treatment Not on file
--- OUTSIDE RECORDS SUMMARY | 2024-12-04 17:07 | XMS_ITS | Encounter Summary ---
Author Organization [facility] Address [facility] [place] [address] Care Team Providers Care Stenographer Print Shop Name Role Phone Gertrude Butt MD Primary Care Provider [phone] Isidro Christianson MD Unavailable [phone] Gertrude Butt MD Primary Care Provider + [phone] Ann Koenig MD Primary Care Provider [phone] Corinne Huizar RN Unavailable [phone] Corinne Huizar RN Unavailable [phone] Leonardo Bach MD Unavailable Encounter Details Date Type Department Care Team (Late st Contact Info) Description 01/09/[address] [facility] Conversion [address] [place], [place] [address] , Generic Conversion, Social History Tobacco Use Types Packs/Day Years Used Date Smoking Tobacco: Never Smokeless Tobacco: Never Alcohol Use Standard Drinks/Week Comments Yes 0 (1 standard drink = 0.6 oz pur e alcohol) socially PHQ-2 Answer Date Recorded PHQ-2 Score 1 12/21/2018 Comments No Sex and Gender Information Value [...] Description 12/13/2024 7:00 AM CDT Office Visit [facility] & Internal Medicine - [place] [address] [place] [address] [place] [address] [place] [address] 01/01/2025 9:30 AM CDT Appointment [facility] [address] [place] [address] [place] [address] [place] [address] 06/27/2025 8:00 AM CDT Office Visit [facility] Multispecialty Care - [facility] [address] [place] [address] Matt Love MD [address] [place] [address] 11/28/2025 9:15 AM ASSOCIATE CHEMIST Office Visit [facility] [address] [place] [address] Isidro Christianson [facility] [address] [place] [address] documented as of this encounter Visit Diagnoses Not on filedocumented in this encounter Additional Health Concerns Infection Onset Date Last Indicated Resolved Time COVID-19 Rule Out 07/21/2020 07/21/2020 07/22/2020 8:25 PM CDT COVID-19 Rule Out 01/06/2021 01/06/2021 01/07/2021 5:00 PM CDT COVID-19 Rule Out 08/29/2023 08/29/2023 08/29/2023 3:16 PM ASSOCIATE CHEMIST documented as of this encounter Care Teams Stenographer Print Shop Relationship Specialty Start Date End Date Gertrude Butt MD PCP - General INTERNAL MEDICINE 02/25/16 09/10/20 Gertrude Butt MD [facility]. [facility] [address] [place] [address] PCP - General INTERNAL MEDICINE 09/11/20 12/26/22 [place] [address] [address] [id number] PCP - General FAMILY PRACTICE 12/27/22 Isidro Christianson MD Three [facility]. [facility] [address] [place], [place] [id number] [place] Electrical Maintenance Engineer CARDIOVASCULAR DISEASE 02/25/16 Corinne Huizar, RN [address] [place], [place] [id number] Legal Billing Analyst (Ambulatory) REGISTERED NURSE 08/16/23 08/28/23 Corinne Huizar, RN [address] [place] [address] Legal Billing Analyst (Ambulatory) REGISTERED NURSE 08/30/23 09/21/23 [place] [address] [place], [place] [id number] OTOLARYNGOLOGY 09/28/24 09/28/25 documented as of this encounter
== END 2024-12-04 15:06 | disposition home or self-care (01) ==
LOC: ANHIMG 15:06
PROVIDERS: PCP Family Medicine; Visit Provider Internal Medicine Endocrinology, Diabetes & Metabolism
DX: Z78.0 Asymptomatic menopausal state (principal)
CPT/HCPCS: 77080

== ENCOUNTER 2025-03-27 11:38 | Outpatient (CLI) | payer MEDICARE, SELFPAY ==
--- NOTE | ~2025-03-27 | XR_ITS ---
EXAMINATION:XR_[id number]_CR DATE: 03/27/2025 14:20 INDICATION: Cervical spinal stenosis. Preoperative evaluation. TECHNIQUE: AP, lateral, lateral swimmers and odontoid views of the cervical spine are provided. COMPARISON: None FINDINGS: Alignment is normal. Normal atlantoaxial interval with moderate osteoarthritis. Instrumented C3-C7 an terior spinal fusion with bone graft cages at each level and anterior plate-screw fixation. C2-C3 dis c space is normal. Multilevel moderate bilateral cervical facet osteoarthritis. Surgical clip to the right of C7. Prevertebral soft tissues are normal. Visualized portion of the upper lungs are clear. R ight reverse total shoulder arthroplasty. IMPRESSION: 1. C3-C7 instrumented anterior spinal fusion. 2. Moderate multilevel bilateral cervical facet osteoarthritis. Reviewed, dictated and finalized at location A.
--- OUTSIDE RECORDS SUMMARY | 2025-03-27 11:54 | XMS_ITS | Encounter Summary ---
Author Organization [facility] Address [facility] [place] [address] Care Team Providers Care Dry Primer Powder Blender Name Role Phone Gertrude Butt MD Primary Care Provider [phone] Isidro Christianson MD Unavailable [phone] Gertrude Butt MD Primary Care Provider + [phone] Ann Koenig MD Primary Care Provider [phone] Corinne Huizar RN Unavailable [phone] Corinne Huizar RN Unavailable [phone] Leonardo Bach MD Unavailable Encounter Details Date Type Department Care Team (Late st Contact Info) Description 08/26/2016 Abstract [facility] CONVERSION [address] [place], [place] [id number] , Generic Conversion, Social History Tobacco Use [...] Care Team (Late st Contact Info) Description 06/12/2025 7:00 AM CDT Laboratory Only [facility] Family & Internal Medicine - [place] [address] [place] [address] 06/19/2025 7:20 AM CDT Office Visit [facility] Family & Internal Medicine [facility] [address] [place] [address] [place] [address] [facility] [address] [place] [address] 06/27/2025 8:00 AM CDT Office Visit [facility] Multispecialty Care - [facility] [address] [place] [address] Matt Love MD [address] [facility] [address] [place] [address] 11/28/2025 9:15 AM WOVEN LABEL DESIGNER Office Visit [facility] [address] [place] [address] Isidro Christianson MD Three [facility] [address] [place] [address] documented as of this encounter Visit Diagnoses Not on filedocumented in this encounter Additional Health Concerns Infection Onset Date Last Indicated Resolved Time COVID-19 Rule Out 07/21/2020 07/21/2020 07/22/2020 8:25 PM CDT COVID-19 Rule Out 01/06/2021 01/06/2021 01/07/2021 5:00 PM CDT COVID-19 Rule Out 08/29/2023 08/29/2023 08/29/2023 3:16 PM WOVEN LABEL DESIGNER documented as of this encounter Care Teams Dry Primer Powder Blender Relationship Specialty Start Date End Date Gertrude Butt MD PCP - General INTERNAL MEDICINE 02/25/16 09/10/20 Gertrude Butt MD [facility]. [address] [address] PCP - General INTERNAL MEDICINE 09/11/20 12/26/22 [place] [address] [address] [place] [address] PCP - General FAMILY PRACTICE 12/27/22 Isidro Christianson MD [facility]. [address] [address] Charu Tube Rebuilder CARDIOVASCULAR DISEASE 02/25/16 Corinne Huizar RN [address] [place] [address] Micro Lab Analyst (Ambulatory) REGISTERED NURSE 08/16/23 08/28/23 Corinne Huizar RN [address] [place] [address] Micro Lab Analyst (Ambulatory) REGISTERED NURSE 08/30/23 09/21/23 [place] [address] [place] [address] OTOLARYNGOLOGY 09/28/24 09/28/25 documented as of this encounter
--- OUTSIDE RECORDS SUMMARY | 2025-03-27 11:54 | XMS_ITS | Referral Summary ---
Author Organization [facility] Address [address] [place] [address] Care Team Providers Care Science Professor Name Role Phone Ann Koenig MD Primary Care Provider [phone] Allergies Active Allergy Reactions Criticality Noted Date Comments Methadone Dizziness,Muscle pain,Other (See comments) High 08/18/2015 Slurred speech Fgzozut-Meg-Xvj Reductase Inhibitors Muscle pain Medium 03/27/2019 Medications [...] 20 Active Accu-Chek Guide Me Glucose [facility] USE TO CHECK GLUCOSE TWICE DAILY 11/25/19 [...] (07/14/2020): Added automatically from request for surgery [id number] Shoulder arthritis 07/14/2020 Overview (07/14/2020): Added automatically from request for surgery [id number] MARIE (dyspnea on exertion) 07/07/2020 Metabolic syndrome 07/07/2020 Physical deconditioning 07/07/2020 Restrictive lung disease 07/07/2020 Dysphagia 06/24/2020 Overview (12/22/2020): Added automatically from request for surgery [id number] Gastrointestinal hemorrhage associated with anorectal source 06/24/2020 Overview (12/22/2020): Added automatically from request for surgery [id number] Essential hypertension 02/06/2019 GERD (gastroesophageal reflux disease) 9 Right hip pain 07/12/2018 Acute upper respiratory infection 06/26/2018 Biceps tendon rupture, proximal 01/31/2018 Wheezing 01/10/2018 Tear of medial meniscus of right knee 12/13/2017 Lytic lesion of bone on x-ray 12/01/2017 Fall, accidental 11/14/2017 Knee pain 11/07/2017 Wears glasses 10/17/2017 Shoulder pain, right 07/20/2017 Overview (02/06/2019): Annotation - [id number]: Dx 2012 Right shoulder pain 07/20/2017 Overview (12/22/2020): Annotation - [id number]: Dx 2012 Added automatically from request for surgery [id number] Class 3 severe obesity in adult 07/04/2017 Chest pain due to myocardial ischemia 04/25/2017 Dyslipidemia 04/25/2017 Unsteady gait 01/11/2017 Tendinitis, calcific, shoulder 01/11/2017 Shoulder arthritis 01/11/2017 Overview (12/22/2020): Added automatically from request for surgery [id number] Posterior tibial tendonitis 11/19/2016 Neck pain 06/09/2016 NAY on CPAP 06/09/2016 Overview (02/06/2019): Annotation - [id number]: 10/18/16 sleep titration study 12 mmhg Osteoporosis [...] on file Legal Sex Female 12:35 AM UTILIZATION MANAGEMENT MANAGER Gender Identity Female 09/08/2020 3:29 PM UTILIZATION MANAGEMENT MANAGER Sexual Orientation Choose not to disclose 2019 3:38 PM UTILIZATION MANAGEMENT MANAGER Last Filed Vital Signs Vital Sign Reading Time Taken Comments Blood Pressure 116/52 08/04/2020 6:59 AM UTILIZATION MANAGEMENT MANAGER Pulse 79 08/04/2020 6:59 AM UTILIZATION MANAGEMENT MANAGER Temperature 36.2 C (97.1 F) 08/04/2020 6:59 AM UTILIZATION MANAGEMENT MANAGER Respiratory Rate 18 08/04/2020 6:59 AM UTILIZATION MANAGEMENT MANAGER Oxygen Saturation 92% 08/04/2020 6:59 AM UTILIZATION MANAGEMENT MANAGER Inhaled Oxygen Concentration - - Weight 95.7 kg (211 lb) 10/09/2024 4:24 PM UTILIZATION MANAGEMENT MANAGER Height 157.5 cm (5' 2) 10/09/2024 4:24 PM UTILIZATION MANAGEMENT MANAGER Body Mass Index 38.59 10/09/2024 4:24 PM UTILIZATION MANAGEMENT MANAGER Plan of Treatment Not on file Medical Devices Implanted Type Area Analysis Director Device Identifier Shelf Expiration Date Model / Serial / Lot Depuy Orth[employer]ed[employer] Inc [id number] Delta Xtend 38mm Shoulder +3mm Standard Cup Humeral Polyethylene Latex Free - Sna - [id number] Implanted:Qty: 1 on 08/01/2020 by Harris Corado MD at [facility] Other - see comments [employer] [id number] 04/25/2025 [id number] / NA / [id number] Depuy [employer] [id number] Metaglene 10mm Long Peg Fixation - [id number] Implanted:Qty: 1 on 08/01/2020 by Harris Corado MD at [facility] Right: Shoulder [employer] [id number] 06/25/2025 [id number] / / [id number] Depuy Orth[employer] Inc [id number] Delta Xtend 4.5mm 36mm Lock Shoulder Glenoid Screw Bone Metaglene - [id number] Implanted:Qty: 1 on 08/01/2020 by Harris Corado MD at [facility] Right: Shoulder [employer] [id number] 04/25/2025 [id number] / / [id number] Dep[employer] [id number] Delta Xtend 4.5mm 36mm Lock Shoulder Glenoid Screw Bone Metaglene - [id number] Implanted:Qty: 1 on 08/01/2020 by Harris Corado MD at [facility] Right: Shoulder [employer] [id number] 05/26/2025 [id number] / / [id number] Depuy [employer] [id number] Cmpnt Glenoid 38mm +4mm Eccentric Delta Xtend - [id number] Implanted:Qty: 1 on 08/01/2020 by Harris Corado MD at [facility] Right: Shoulder [employer] [id number] 05/26/2024 [id number] / / [id number] Dep[employer] [id number] Global Unite 8mm 107mm Modular Shoulder Standard Stem Humeral - [id number] Implanted:Qty: 1 on 08/01/2020 by Harris Corado MD at [facility] Right: Shoulder [employer] [id number] 11/23/2028 [id number] / / [id number] Dep[employer] [id number] Implant Shldr Xtend Modecc 155epi Por Sz1 Rt - [id number] Implanted:Qty: 1 on 08/01/2020 by Harris Corado MD at [facility] Right: Shoulder [employer] 04/25/2030 [id number] / / [id number] Explanted Type Area Analysis Director Device Identifier Shelf Expiration Date Model / Serial / Lot Depuy Orth[employer] Inc [id number] Delta Xtend 1.2mm 150mm Screw Glenoid Large Guide Pin Orthopedic - [id number] Explanted:Qty: 1 on 08/01/2020 at [facility] [employer] [id number] / / Description:*ADDED TO [employer] T SCREEN TO CORRECT NEW ITEM ADDED ON SUPPLY. THIS IS BUILT IN [employer] AN IMPLANT. KV Procedures Procedure Name Priority Date/Time Associated Diagnosis Comments EGFR Routine 08/04/2020 5:54 AM UTILIZATION MANAGEMENT MANAGER POCT HEMOGLOBIN A1C Routine 07/25/2020 9 :08 AM CDT from Last 3 Months or Most Recently Relevant to Health Maintenance Results * eGFR (08/04/2020 5:54 AM UTILIZATION MANAGEMENT MANAGER) eGFR 38 mL/min/1.7 3 m2 [facility] Comment: Interpretive Data Reference Interval Normal >/= 90 mL/min/1.73m2 Mildly decreased* 60 - 89 mL/min/1.73m2 Mildly to moderately decreased 45 - 59 mL/min/1.73m2 Moderately to severely decreased 30 - 44 mL/min/1.73m2 Severely decreased 15 - 29 mL/min/1.73m2 Kidney Failure < 15 mL/min/1.73m2 *Relative to young adult level If -Tanzanian multiply value by 1.16. Estimated glomerular filtration [...] 2016. Blood specimen (specimen) 08/04/2020 5:54 AM UTILIZATION MANAGEMENT MANAGER 08/04/2020 6:01 AM UTILIZATION MANAGEMENT MANAGER Sameer Eddy MD LAB BLOOD ORDERABLES F inal Result Performing Organization Address City/[facility] Co de Phone Number [facility] [address] [facility] [place] [facility]. [place] [address] * (ABNORMAL) POCT hemoglobin A1c (07/25/2020 9:08 AM CDT) Hgb A1C, POC 6.6(H) 4.0 - 6.0 % [facility] Est Average Gluc POC 143 mg/dL [facility] Comment: The ADA recommends reporting an estimated Average Glucose (eAG) with all Hemoglobin A1c results using the equation derived from a study of 507 normal and diabetic adults. Minority populations were underrepresented and children were not included. (Diabetes Care 31:1486-8036, 2008). The eAG is not equivalent to a fasting glucose. Blood specimen (specimen) 07/25/2020 9:08 AM CDT 07/25/2020 9:08 AM CDT Harris Corado MD POINT OF CARE TEST ORD ERABLES Final Result Performing Organization Address [facility] Co de Phone Number [facility] Department [place] [address] from Last 3 Months or Most Recently Relevant to Health Maintenance Insurance [facility] MEDICARE HMO HUMANA CHOICE MEDICARE PPO Member Subscriber Plan / Payer (Ef fective 2018-Present) Name:Maria Luz Recinos Relation to Subscriber:Self Name:Maria Luz Recinos Payer ID:[id number] (NAIC) Type:MEDICARE RISK OTHER Address: [address] MEDICARE HUMANA CHOICE MEDICARE PPO AARP HUMANA CHOICE MEDICARE PPO AARP Advance Directives For more information, please contact: [phone] Documents on File Type Date Recorded Patient Organ Builder Expl anation ADVANCE DIRECTIVE 08/01/2020 7:45 AM * Full Code (Latest Code Status on File) Date Activated Date Inactivated Comments 08/01/2020 1:20 PM 08/04/2020 4:52 PM Care Teams Science Professor Relationship Specialty [place] [address] [place] [address] PCP - General Family Medicine 07/19/24
--- OUTSIDE RECORDS SUMMARY | 2025-03-27 11:54 | XMS_ITS | Encounter Summary ---
Author Organization [facility] Address [facility] [place] [address] Care Team Providers Care Business Support Professional Name Role Phone Gertrude Butt MD Primary Care Provider [phone] Isidro Christianson MD Unavailable [phone] Gertrude Butt MD Primary Care Provider + [phone] Ann Koenig MD Primary Care Provider [phone] Corinne Huizar RN Unavailable [phone] Corinne Huizar RN Unavailable [phone] Leonardo Bach MD Unavailable Encounter Details Date Type Department Care Team (Late st Contact Info) Description 07/14/2020 Prep for Procedure [facility] One Day Services [place], [place] [address] Quinton Myers MD [address] [id number] Social History Tobacco Use Types Packs/Day Years [...] Description 06/12/2025 7:00 AM CDT Laboratory Only [facility] Internal Medicine [address] [phone] 06/19/2025 7:20 AM CDT Office Visit [facility] [id number] [place] [phone] [place] [address] [facility] [place] [address] 06/27/2025 8:00 AM CDT Office Visit [facility] Multispecialty Care - [facility] [address] [facility] [address] [place] [address] Matt Love MD [address] [place] [address] [address] [place] [address] 11/28/2025 9:15 AM COMPUTER FORENSICS INVESTIGATOR Office Visit [facility] [address] [place] [phone] Isidro Christianson MD Three [facility]. [address] [place] [address] documented as of this encounter Results * PRE-SURGICAL/PRE-PROCEDURE CORONAVIRUS (COVID 19) (07/21/2020 9:50 AM CDT) CORONAVIRUS SARS COV 2 PCR (RESP) NOT DETECTED NOT DETECTED 07/22/2020 8:25 PM CDT [employer] [facility] Comment: A Not Detected (negative) test result [...] providers and patients using the following websites: https://www.[employer]/home/Covid-19/HCP/Quest[employer]/fact- sheet.html https://www.[employer]/home/Covid-19/Patients/ Quest[employer]/fact-sheet.html This test has been authorized by the FDA under an Emergency Use Authorization (EUA) for use by authorized laboratories. Due to the current public health emergency, [employer] is receiving a high volume of samples [...] about COVID-19 can be found at the [employer] website: www.[employer]/Covid19. Test performed at [facility] [employer] [facility] [address] [place] [address] Director: ELSY KOTHARI DO,MPH FIRST TEST NO 07/21/2020 12:20 PM CDT [facility] EMPLOYED IN HEALTHCARE NO 07/21/2020 12:20 PM CDT [facility] SYMPTOMATIC DEFINED BY CDC NO 07/21/2020 12:20 PM CDT [facility] DATE OF SYMPTOM ONSET NO 07/21/2020 1:12 PM CDT [facility] HOSPITALIZATION STATUS NO 07/21/2020 12:20 PM CDT [facility] PATIENT IN ICU NO 07/21/2020 12:20 PM CDT [facility] RESIDENT OF [facility] NO 07/21/2020 12:20 PM CDT [facility] NOT 07/21/2020 1:12 PM CDT [facility] PATIENT'S RACE WHITE OR 07/21/2020 12:20 PM CDT [facility] ETHNICITY NONHISPANIC 07/21/2020 12:20 PM CDT [facility] SOURCE (QST) NASOPHARYNGEAL SWAB 07/21/2020 12:20 PM CDT [facility] NASOPHARYNGEAL SWAB / Unknown 07/21/2020 9:50 AM CDT Quinton Myers MD MICROBIOLOGY - GENERAL ORDERABLE S Final Result [facility] [address] [place] [address], [place] [phone] [employer] [facility] [address] [place] [address], documented in this encounter Visit Diagnoses Diagnosis Dysphagia- Primary Dysphagia, unspecified documented in this encounter Additional Health Concerns Infection Onset Date Last Indicated Resolved Time COVID-19 Rule Out 07/21/2020 07/21/2020 07/22/2020 8:25 PM CDT COVID-19 Rule Out 01/06/2021 01/06/202101/0701/07/2021 5:00 PM CDT COVID-19 Rule Out 08/29/2023 08/29/2023 08/29/2023 3:16 PM COMPUTER FORENSICS INVESTIGATOR documented as of this encounter Care Teams Business Support Professional Relationship Specialty Start Date End Date Gertrude Butt MD PCP - General INTERNAL MEDICINE 02/25/16 09/10/20 Gertrude Butt MD [facility]. [facility] [address] [place], [place] [address] PCP - General INTERNAL MEDICINE 09/11/20 12/26/22 [place] [address] [address] [phone] PCP - General FAMILY PRACTICE 12/27/22 Isidro Christianson MD Three [facility]. [facility] [address] [place], [place] [address] Dorr Travel Guide CARDIOVASCULAR DISEASE 02/25/16 Corinne Huizar, RN [address] [place], [place] [address] Motion Picture Camera Lens Technician (Ambulatory) REGISTERED NURSE 08/16/23 08/28/23 Corinne Huizar RN [address] [place], [place] [address] Motion Picture Camera Lens Technician (Ambulatory) REGISTERED NURSE 08/30/23 09/21/23 [place] [address] [place], [place] [phone] OTOLARYNGOLOGY 09/28/24 09/28/25 documented as of this encounter
--- OUTSIDE RECORDS SUMMARY | 2025-03-27 11:54 | XMS_ITS | Encounter Summary ---
Author Organization [facility] Address [address] [place] [address] Care Team Providers Care Sfdc Consultant Name Role Phone Isidro Christianson MD Unavailable [phone] Gertrude Butt MD Primary Care Provider [phone] Ann Koenig MD Primary Care Provider [phone] Corinne Huizar RN Unavailable [phone] Corinne Huizar RN Unavailable [phone] Leonardo Bach MD Unavailable Encounter Details Date Type Department Care Team (Late st Contact Info) Description 03/23/2022 Hospital Orders Only [facility] Hand Alterations Seamstress [address] [place] [address] Saeid Treviño MD,PHD Social History [...] Recorded In the last 10 days, have yuri u been in contact with someone who was confirmed or suspected to have Coronavirus/COVID-19? No / Unsure 03/24/2022 8:42 AM CDT documented as of this encounter Functional Status * Calculated C-SSRS Risk Score (Lifetime/Recent) Answer Date of Assessment Author Status No Risk Indicated 03/24/2022 9:16 AM CDT Jennifer Singh RN Active * [place] Suicide Severity Rating Scale (Screener/Recent Self-Report) Question Answer Date of Assessment Author Status 1. Wish to be (Past 1 Month) No 03/24/2022 9:16 AM CDT Jennifer Singh RN Active 2. Non-Specific Active Suici reji Thoughts (Past 1 Month) No 03/24/2022 9:16 AM CDT Jennifer Singh RN Active 6. Suicidal Behavior (Lifetime) No 03/24/2022 9:16 AM CDT Jennifer Singh RN Active documented as of this encounter Plan of Treatment Upcoming Encounters Date Type Department Care Team (Late st Contact Info) Description 06/12/2025 7:00 AM CDT Laboratory Only [facility] Family & Internal Medicine [facility] [address] [place] [phone] 06/19/2025 7:20 AM CDT Office Visit [facility] [address] [address] [place] [address] [facility]. [address] [place] [address] 06/27/2025 8:00 AM CDT Office Visit [facility] Multispecialty Care - [facility] [address] [facility] [place] [address] Matt Love MD [address] [facility] [address] [place] [address] 11/28/2025 9:15 AM TEACHER PRIVATE Office Visit [facility] [address] [facility] [phone] Isidro Christianson MD Three [facility]. [address] [place] [address] documented as of this encounter Visit Diagnoses Not on filedocumented in this encounter Additional Health Concerns Infection Onset Date Last Indicated Resolved Time COVID-19 Rule Out 08/29/2023 08/29/2023 08/29/2023 3:16 PM TEACHER PRIVATE Assessment Noted Time PHQ-9 Depression Total Score: 0 12/15/19 22 8:07 AM CDT documented as of this encounter Care Teams Sfdc Consultant Relationship Specialty Start Date End Date Gertrude Butt MD Three [facility]. [address] [place] [address] PCP - General INTERNAL MEDICINE 09/11/20 12/26/22 [place] [address] [facility] [place] [address] PCP - General FAMILY PRACTICE 12/27/22 Isidro Christianson MD [facility]. [address] [place] [address] Charu Assembly Manager CARDIOVASCULAR DISEASE 02/25/16 Corinne Huizar RN [address] [place], [place] [address] Phone Engineer (Ambulatory) REGISTERED NURSE 08/16/23 08/28/23 Corinne Huizar RN [address] [place] [address] Phone Engineer (Ambulatory) REGISTERED NURSE 08/30/23 09/21/23 [place] [address] [place] [address] OTOLARYNGOLOGY 09/28/24 09/28/25 documented as of this encounter
--- OUTSIDE RECORDS SUMMARY | 2025-03-27 11:54 | XMS_ITS | Encounter Summary ---
Author Organization [facility] [facility] Address [address] [place] [address] Phone Care Team Providers Care Lace Finisher Name Role Phone Gertrude Butt MD Primary Care Provider [phone] Ann Koenig MD Primary Care Provider [phone] Encounter Details Date Type Department Care Team (Late st Contact Info) Description 04/19/2019 Orders Only [facility] [phone] Scanning, Provider Social History Tobacco Use Types Packs/Day Years Used Date Smoking Tobacco: Never Assessed Comments Unknown Sex and Gender Information Value Date Recorded Sex Assigned at Not on file Legal Sex Female 12:35 AM UTILIZATION MANAGEMENT NURSE Gender Identity Female 09/08/2020 3:29 PM UTILIZATION MANAGEMENT NURSE Sexual Orientation Choose not to disclose 2019 3:38 PM UTILIZATION MANAGEMENT NURSE documented as of this encounter Plan of Treatment Not on file documented as of this encounter Procedures Procedure Name Priority Date/Time Associated Diagnosis Comments SCAN - RADIOLOGY/IMAGING 04/19/2019 documented in this encounter Results * SCAN - RADIOLOGY/IMAGING (04/19/2019) Anatomical Region Laterality Modality Other us Provider Scanning Final Result documented in this encounter Visit Diagnoses Not on filedocumented in this encounter Care Teams Lace Finisher Relationship Specialty [place] [address] [address] [place] [address] PCP - General Internal Medicine 01/16/19 07/18/24 [place] [address] [place] [address] PCP - General Family Medicine 07/19/24 documented as of this encounter
--- OUTSIDE RECORDS SUMMARY | 2025-03-27 11:54 | XMS_ITS | Encounter Summary ---
Author Organization [facility] Address [address] [place] [address] Care Team Providers Care Delinquency Counselor Name Role Phone Isidro Christianson MD Unavailable [phone] Gertrude Butt MD Primary Care Provider [phone] Ann Koenig MD Primary Care Provider [phone] Corinne Huizar RN Unavailable [phone] Corinne Huizar RN Unavailable [phone] Leonardo Bach MD Unavailable Encounter Details Date Type Department Care Team (Late st Contact Info) Description 05/04/2021 [employer] [facility] Patient Accounts [address] [place] [address] [facility] Provider Financial Assistance Social History Tobacco Use [...] Description 06/12/2025 7:00 AM CDT Laboratory Only [facility] Family & Internal Medicine [address] [phone] 06/19/2025 7:20 AM CDT Office Visit [facility] Family & Internal Medicine [facility] [address] [place] [phone] Ann Koenig MD [address] [place] [address]. [address] [place] [address] 06/27/2025 8:00 AM CDT Office Visit [facility] Multispecialty Care - [facility] [address] [facility] [place] [address] Matt Love MD 3[address] [facility] [address] [place], [place] [address] 11/28/2025 9:15 AM PROVIDER EDUCATION SPECIALIST [facility] [address] [place] [address] Isidro Christianson MD Three [facility]. [address] [place], [place] [address] documented as of this encounter Visit Diagnoses Not on filedocumented in this encounter Additional Health Concerns Infection Onset Date Last Indicated Resolved Time COVID-19 Rule Out 08/29/2023 08/29/2023 08/29/2023 3:16 PM PROVIDER EDUCATION SPECIALIST documented as of this encounter Care Teams Delinquency Counselor Relationship Specialty Start Date End Date Gertrude Butt MD [facility]. [facility] [address] [place] [address] PCP - General INTERNAL MEDICINE 09/11/20 12/26/22 [place] [address] [facility] [address] [place], [place] [id number] PCP - General FAMILY PRACTICE 12/27/22 Isidro Christianson MD Three [facility]. [address] [place], [place] [address] [place] Mechanical Technical Service Specialist CARDIOVASCULAR DISEASE 02/25/16 Corinne Huizar, RN [address] [place] [address] Awning Craftsman (Ambulatory) REGISTERED NURSE 08/16/23 08/28/23 Corinne Huizar RN [address] [place] [address] Awning Craftsman (Ambulatory) REGISTERED NURSE 08/30/23 09/21/23 [place] [address] [place], [place] [phone] OTOLARYNGOLOGY 09/28/24 09/28/25 documented as of this encounter
--- OUTSIDE RECORDS SUMMARY | 2025-03-27 11:54 | XMS_ITS | Encounter Summary ---
Author Organization [facility] Address [facility] [place] [address] Care Team Providers Care Nail Specialist Name Role Phone Isidro Christianson MD Unavailable [phone] Ann Koenig MD Primary Care Provider [phone] Corinne Huizar RN Unavailable [phone] Corinne Huizar RN Unavailable [phone] Leonardo Bach MD Unavailable Encounter Details Date Type Department Care Team (Late st Contact Info) Description 03/03/2023 Pre-Procedure Call [facility] Endo/GI [facility] [place] [address] Keegan Hui, Social History Tobacco [...] 8:02 AM CDT Height 157.5 cm (5' 2) 03/03/2023 8:02 AM CDT Body Mass Index 40.06 03/03/2023 8:02 AM CDT documented in this encounter Plan of Treatment Upcoming Encounters Date Type Department Care Team (Late st Contact Info) Description 06/12/2025 7:00 AM CDT Laboratory Only [facility] Family & Internal Medicine [address] [address] 06/19/2025 7:20 AM CDT Office Visit [facility] Family & Internal Medicine [address] [address] Ann Koenig MD [address] [place] [address]. [address] [place] [id number] 06/27/2025 8:00 AM CDT Office Visit [facility] - [address] [place] [address] Matt Love MD [address] [place] [address] [address] [address] [place] [address] 11/28/2025 9:15 AM HUMANITIES COORDINATOR Office Visit [facility] [address] [place] [address] Isidro Christianson MD [facility]. [facility] [address] [place] [address] documented as of this encounter Visit Diagnoses Not on filedocumented in this encounter Additional Health Concerns Infection Onset Date Last Indicated Resolved Time COVID-19 Rule Out 08/29/2023 08/29/2023 08/29/2023 3:16 PM HUMANITIES COORDINATOR Assessment Noted Time PHQ-9 Depression Total Score: 9 10/27/19 8:21 AM HUMANITIES COORDINATOR documented as of this encounter Care Teams Nail Specialist Relationship Specialty [place] [id number] [facility]. [address] [place] [id number] PCP - General FAMILY PRACTICE 12/27/22 Isidro Christianson MD [facility]. [facility] [address] [place] [address] Harris Database Analyst CARDIOVASCULAR DISEASE 02/25/16 Corinne Huizar RN [facility] [place] [address] [employer] (Ambulatory) REGISTERED NURSE 08/16/23 08/28/23 Corinne Huizar RN [facility] [place] [address] [employer] (Ambulatory) REGISTERED NURSE 08/30/23 09/21/[address] [place] [address] [place] [place] [address] OTOLARYNGOLOGY 09/28/24 09/28/25 documented as of this encounter
--- OUTSIDE RECORDS SUMMARY | 2025-03-27 11:54 | XMS_ITS | Clinical Summary ---
Author Organization [facility] Address [address] [place] [address] Care Team Providers Care Band Builder Name Role Phone Isidro Christianson MD Unavailable Ann Koenig MD Primary Care Provider [phone] Leonardo Bach MD Unavailable Allergies Active Allergy Reactions Criticality Noted Date Comments Methadone Dizziness,Myalgias High 08/18/2015 Slurred speech Statins Myalgias Medium 03/27/2019 Medications acetaminophen 325 MG tabletIndication s:Pain Take 2 tablets (650 mg total) by mouth every 6 (six) hours as needed for Pain. Indications: Pain Active Lancet Devices (TRUEDRAW LANCING DEVICE) MiscIndications: Diabetes Mellitus Use to check BS twice daily 1 each 1 2 Active folic acid (FOLVITE) 1 MG tabletIndication s:Mineral Deficiency Take 1 tablet (1 mg total) by mouth daily. Indications: Mineral Deficiency 3 Active Thiamine HCl (VITAMIN B-1) 250 MG TabIndications:M ineral Deficiency Take 1 tablet by mouth daily. Indications: Mineral Deficiency Active psyllium (METAMUCIL) 51.7 % packetIndication s:Constipation Take 1 packet by mouth 3 (three) times daily. Indications: Constipation Active gabapentin (NEURONTIN) 300 MG capsuleIndicatio ns:Pain Take 1 capsule (300 mg total) by mouth 3 (three) times daily. Indications: Pain 3 Active B Complex-C Tab tabletIndication s:Mineral Deficiency Take 1 tablet by mouth daily. Indications: Mineral Deficiency Active ferrous sulfate, 65 mg elemental, 325 (65 FE) MG tabletIndication s:Mineral Deficiency Take 1 tablet (325 mg total) by mouth daily with breakfast. Indications: Mineral Deficiency Active vitamin D3 (CHOLECALCIFEROL ) 125 mcg TabIndications:M ineral Deficiency Take 1 tablet (125 mcg total) by mouth daily. Indications: Mineral Deficiency Active aspirin EC (ECOTRIN) 81 MG tabletIndication s:Prophylaxis Take 1 tablet (81 mg total) by mouth daily. Indications: Preventative Treatment Active methotrexate (TREXALL) 2.5 MG tabletIndication s:Pain Take 3 tablets (7.5 mg total) by mouth once a week. Indications: Pain On Active Magnesium 400 MG TabIndications:M ineral Deficiency Take 1 tablet by mouth daily. Indications: Mineral Deficiency 3 Active docusate sodium (STOOL SOFTENER) 100 MG capsuleIndicatio ns:Constipation Take 1 capsule (100 mg total) by mouth 2 (two) times daily as needed. Indications: Constipation 3 Active TRUEplus Lancets 30G MiscIndications: Type 2 diabetes mellitus with stage 3b chronic kidney disease, without long-term current use of insulin ([facility]) TEST BLOOD SUGAR TWICE DAILY 200 each 3 4 Active TRUE METRIX BLOOD GLUCOSE TEST test stripIndications :Type 2 diabetes mellitus with stage 3b chronic kidney disease, without long-term current use of insulin ([facility]) TEST BLOOD SUGAR TWICE DAILY 200 strip 3 4 Active calcium carb-cholecalcif sammy (CALTRATE 600+D) 600-20 MG-MCG tablet Take 1 tablet by mouth 2 (two) times daily. Active nortriptyline (PAMELOR) 25 MG capsuleIndicatio ns:Sleep Disorder Take 2 capsules (50 mg total) by mouth nightly at bedtime. Indications: Sleep Disorder 180 capsule 3 4 Active BONE STIMULATOR, DME,Indications: Lumbar spine instability Wear 4 hours daily. Can break up into multiple sessions totaling 4 hours. 1 Device 4 Active Misc. Devices MiscIndications: Lumbar spine instability 1 each by Does not apply route continuous. LSO for continuous wear while ambulating or up in chair. 1 each 4 Active omeprazole (PRILOSEC) 20 MG capsuleIndicatio ns:Gastroesophag eal reflux disease without esophagitis TAKE 1 CAPSULE EVERY NIGHT AT BEDTIME FOR STOMACH ACHE 90 capsule 3 5 Active allopurinol (ZYLOPRIM) 300 MG tabletIndication s:Gout, unspecified cause, unspecified chronicity, unspecified site Take 1 tablet (300 mg total) by mouth daily. 90 tablet 3 5 Active cyclobenzaprine (FLEXERIL) 5 MG tabletIndication s:Spinal stenosis of lumbar region, unspecified whether neurogenic claudication present,Lumbar disc herniation Take 1 tablet (5 mg total) by mouth 2 (two) times daily as needed for Muscle Spasms. 180 tablet 1 5 Active dilTIAZem CD (CARDIZEM CD) 180 MG 24 hr capsuleIndicatio ns:Essential hypertension Take 1 capsule (180 mg total) by mouth daily. 90 capsule 3 5 Active lisinopril (PRINIVIL) 10 MG tabletIndication s:Essential hypertension Take 1 tablet (10 mg total) by mouth daily. 90 tablet 3 5 Active HYDROcodone-acet aminophen (NORCO) 7.5-325 MG tabletIndication s:Chronic Pain Take 1 tablet by mouth daily as needed for Pain. Indications: Chronic Pain 30 tablet 5 Active Active Problems Problem Noted Date Diagnosed Date Pain in left shoulder 12/24/2024 Adhesive capsulitis of left shoulder 12/24/2024 Radiculopathy, lumbar region 08/21/2024 Foraminal stenosis of lumbar region 08/21/2024 Sacroiliitis 08/21/2024 Facet hypertrophy of lumbar region 08/21/2024 Bilateral occipital neuralgia 12/20/2023 Myofascial neck pain 09/27/2023 Decreased range of motion of neck 09/27/2023 Syncope 08/29/2023 Spinal stenosis of cervical region 08/17/2023 Foraminal stenosis of cervical region 08/17/2023 History of fusion of cervical spine 08/17/2023 Cervical myelopathy ([facility]) 08/16/2023 S/P cervical spinal fusion 08/16/2023 Anemia, unspecified type 12/09/2022 Overview (12/09/2022): Added automatically from request for surgery [id number] Primary hypertension 07/21/2022 Abnormal finding on lung imaging 09/11/2020 Stage 3 chronic kidney disease 07/30/2020 Restrictive lung disease 07/07/2020 MARIE (dyspnea on exertion) 07/07/2020 Physical deconditioning 07/07/2020 Metabolic syndrome 07/07/2020 Gastrointestinal hemorrhage associated with anorectal source 06/24/2020 Overview (06/24/2020): Added automatically from request for surgery [id number] Dysphagia 06/24/2020 Overview (06/24/2020): Added automatically from request for surgery [id number] GERD (gastroesophageal reflux disease) 9 Right hip pain 07/12/2018 Biceps tendon rupture, proximal 01/31/2018 Wheezing 01/10/2018 Tear of medial meniscus of right knee 12/13/2017 Lytic lesion of bone on x-ray 12/01/2017 Fall, accidental 11/14/2017 Knee pain 11/07/2017 Right shoulder pain 07/20/2017 Overview (08/13/2020): Annotation - [id number]: Dx 2012 Added automatically from request for surgery [id number] Class 3 severe obesity in adult 07/04/2017 Dyslipidemia 04/25/2017 Chest pain due to myocardial ischemia 04/25/2017 Shoulder arthritis 01/11/2017 Overview (08/13/2020): Added automatically from request for surgery [id number] Unsteady gait 01/11/2017 Posterior tibial tendonitis 11/19/2016 Osteoporosis screening 06/09/2016 Overview (09/14/2018): Transitioned From: Encounter for preventive health examination Neck pain 06/09/2016 NAY on CPAP 06/09/2016 Overview (09/14/2018): Annotation - [id number]: 10/18/16 sleep titration study 12 mmhg Vitamin D deficiency 06/09/2016 Knee instability, left 12/08/2015 Sore muscles 04/22/2015 Muscle spasm 02/24/2015 DDD (degenerative disc disease), cervical 2014 Type 2 diabetes mellitus wit h stage 3b chronic kidney disease, without long-term current use of insulin ([facility]) 12/03/2014 Gout, unspecified cause, uns pecified chronicity, unspecified site 12/03/2014 Hyperlipidemia 12/03/2014 Lumbar spinal stenosis 12/03/2014 Neuropathy, peripheral 12/03/2014 RLS (restless legs syndrome) 12/03/2014 TIA (transient ischemic attack) 05/27/2011 Resolved Problems Problem Noted Date Diagnosed Date Resolved Date Wears glasses 10/17/2017 06/06/2020 Encounters Date Type Department Care Team Description 02/27/2025 9:35 AM CDT - 02/27/2025 11:59 PM CDT Hospital Encounter [facility] [address] [place] [address] Gerber Maher MD Discharge Disposition: Home or Self Care (Routine Discharge) 02/27/2025 Travel 01/16/2025 Scan [facility] Scanned, [facility] 01/14/2025 Scan [facility] Scanned, [facility] 01/01/2025 9:11 AM CDT - 01/01/2025 11:59 PM CDT Hospital Encounter [facility] [address] [place] [address] Ann Koenig MD Discharge Disposition: Home or Self Care (Routine Discharge) 01/01/2025 Scan [facility] Scanned, [facility] 01/01/2025 Travel from Last 3 Months Immunizations Immunization Administration Dates Next Due Arexvy Respiratory Syncytial Virus (RSV, adjuvanted) 0.5 mL, PF 08/01/2023 Fluzone High Dose (IIV, triv alent, 0.5mL) 07/14/2024,09/25/2015 Fluzone High Dose - >Age 65 (Prefilled Syringe) 07/20/2023,07/19/2022,07/21/2021,2019,07/02/2019,07/04/2017,06/09/2016,1 Influenza (Generic) 09/25/2015,07/24/2014 Influenza Adult (Generic) 07/20/2020,03/2019,06/26/2018(Deferr ed: Patient Refused),07/04/2017,06/09/2016,09/25/20 15,07/24/2014 MODERNA COVID-19 (12+) MRNA, LNP-S, PF, 100 MCG/ 0.5 ML DOSE 07/23/2021,12/30/2020,12/02/2020 Pneumococcal (Capvaxive - PCV 21) 01/16/2025 Pneumococcal (Pneumovax 23) 02/12/2020, 4 Pneumococcal (Prevnar 13) 03/15/2016 Shingrix 01/04/2023,10/25/2022 Tdap (Generic) 01/16/2025,07/04/2015 Family History Medical History Relation Comments Heart [...] Sister 3 Miscarriages / Stillbirths Sister 4 Breast Cancer Sister 5 Relation Status Comments Brother 1 Brother 2 Brother 3 Brother 4 Father Maternal Aunt Maternal Grandfather Maternal Grandmother Mother Paternal Aunt Sister 1 Sister 2 Sister 3 Sister 4 Sister 5 Alive Social History Tobacco Use Types Packs/Day [...] materials from doctor or pharmacy Never 09/30/2023 [facility] Utilities Answer Date Recorded In the past [address] [employer], gas, oil, or water company threatened to [...] Recorded Patient Health Questionnaire-2 Score 0 10/04/2024 [facility] [place] [facility] - Occupational Stress [...] place to sleep or slept in a chcf (including now)? No 08/29/2023 Comments No Sex [...] Sign Reading Time Taken Comments Blood Pressure 118/65 12/13/2024 7:02 AM CDT Pulse 79 12/13/2024 7:02 AM CDT Temperature 36.3 C (97.3 F) 12/13/2024 7:02 AM CDT Respiratory Rate 16 12/13/2024 7:02 AM CDT Oxygen Saturation 99% 12/13/2024 7:02 AM CDT Inhaled Oxygen Concentration - - Weight 99.6 kg (219 lb 9.6 oz) 12/13/2024 7:02 A M CDT Height 157.5 cm (5' 2) 12/13/2024 7:02 AM CDT Body Mass Index 40.17 12/13/2024 7:02 AM CDT Plan of Treatment Upcoming Encounters Date Type Department Care Team (Late st Contact Info) Description 06/12/2025 7:00 AM CDT Laboratory Only [facility] [address] [place] [phone] 06/19/2025 7:20 AM CDT Office Visit [facility] [address] [place] [phone] [place] [address] [facility] [place] [address] 06/27/2025 8:00 AM CDT Office Visit [facility] [address] [facility] [place] [address] Matt Love MD [address] [facility] [address] [place] [address] 11/28/2025 9:15 AM ORGANIZATIONAL PSYCHOLOGIST Office Visit [facility] [address] [place] [phone] Isidro Christianson MD [facility] [address] [place] [address] Health Maintenance Due Date Last Done Comments Kidney Health Evaluation 1950 Annual Medicare Wellness Visit 2014 ASCVD LDL 09/20/2024 09/20/2023, 06/27, 03/08/2022, Additional history exists Lipid Panel 09/20/2024 09/20/2023, 06/27, 03/08/2022, Additional history exists Hemoglobin A1C 06/15/2025 12/13/2024, 08/26, 02/27/2024, Additional history exists Diabetes: Retinopathy Eye Exam 12/21/2026 12/21/2024, 12/21/2023, 01/20/2023, Additional history exists Colorectal Cancer Screening Colonoscopy (10 Years) 07/24/2030 07/24/2020, 03/01/2014, 02/21/2014, Additional history exists DTaP, Tdap and Td Vaccines (3 - Td or Tdap) 01/16/2035 01/16/2025, 07/04/2015 Hepatitis C Completed 07/06/2022, 07/03/2019 Zoster Vaccines Completed 01/04/2023, 10/25/2022 RSV Immunization or 60+ Years Completed 08/01/2023 PHQ-2 (Physician [place]) Completed 10/04/2024 Dexa Scan (General) Completed 12/04/2024, 12/04/2024, 06/11/2016, Additional history exists COVID-19 Vaccine Completed 01/16/2025, , 07/26/2023, Additional history exists Pneumococcal Vaccine: 50+ Years Completed 01/16/2025, 02/12/2020, 03/15/2016, Additional history exists Meningococcal B Vaccine Aged Out No l [...] planning Lifestyle On track( 023 11:48 AM ORGANIZATIONAL PSYCHOLOGIST) No Kehinde Retana RN Medical Devices Implanted Type Area Ingredient Handler Device Identifier Shelf Expiration Date Model / Serial / Lot Graft Infuse Bone Xsmall - [id number] Implanted:Qty : 1 on 08/16/2023 by Hansel Dalal MD at [facility] Bone N/A: Spine Cervical [employer] [id number] 11/23/2024 [id number] / / [id number] Bio Dbm Putty Implanted:Qty : 1 on 08/16/2023 by Hansel Dalal MD at [facility] Bone N/A: Spine Cervical [employer] DIV NIHARIKA YUDITH 04/11/2025 [id number] / / [id number] Bio Dbm Putty Implanted:Qty : 1 on 08/16/2023 by Hansel Dalal MD at [facility] Bone N/A: Spine Cervical 04/03/2025 [id number] / / [id number] [place]amo Interbody Implanted:Qty : 1 on 08/16/2023 by Hansel Dalal MD at [facility] Cage N/A: Spine Cervical [id number] 11/23/2026 [id number] / / [id number] [employer]amo Interbody Implanted:Qty : 1 on 08/16/2023 by Hansel Dalal MD at [facility] Cage N/A: Spine Cervical [id number] 04/03/2028 [id number] / / [id number] 77mm Plate Implanted:Qty : 1 on 08/16/2023 by Hansel Dalal MD at [facility] Plate N/A: Spine Cervical [employer] DIV NIHARIKA YUDITH [id number] / / 16mm Vst Screw Implanted:Qty : 10 on 08/16/2023 by Hansel Dalal MD at [facility] Screw N/A: Spine Cervical [employer] DIV NIHARIKA YUDITH [id number] / / Clareon Iol Implanted:Qty : 1 on 11/15/2022 by Mika Rizzo MD at [facility] Left: Eye [id number] 08/10/2025 / [id number] / Clareon Iol Implanted:Qty : 1 on 12/13/2022 by Mika Rizzo MD at [facility] Right: Eye [employer] - [employer]GICAL DIV [id number] 08/17/2025 [id number] / [id number] / Alamo Interbody System Cervical Interbody Implanted:Qty : 1 on 08/16/2023 by Hansel Dalal MD at [facility] N/A: Spine Cervical [employer] DIV NIHARIKA YUDITH [id number] 10/24/2027 [id number] / / [id number] Explanted Type Area Ingredient Handler Device Identifier Shelf Expiration Date Model / Serial / Lot Temp Fix Pin Explanted:Qty: 2 on 08/16/2023 by Hansel Dalal MD at [facility] Pin N/A: Spine Cervical [employer] - DIV NIHARIKA YUDITH [id number] / / Distration Pin 12mm - [id number] Explanted:Qty: 1 on 08/16/2023 at [facility] Pin N/A: Spine Cervical [employer] DP-12-TB / / Distration Pin 12mm - [id number] Explanted:Qty: 1 on 08/16/2023 by Hansel Dalal MD at [facility] Pin N/A: Spine Cervical [employer] DP-12-TB / / Capsule Pill Cam - [id number] Implanted:Qty: 1 on 03/07/2023 by Zackary Mortensen, RN at [facility] Explanted:Qty: 1 on 03/30/2023 COVIDIEN 04/02/2024 [id number] / [id number] / [id number] Procedures Procedure Name Priority Date/Time Associated Diagnosis Comments HEPATIC FUNCTION PANEL Routine 02/27/2025 9:46 AM CDT Encounter for therapeutic drug monitoring BASIC METABOLIC PANEL Routine 02/27/2025 9:46 AM CDT Encounter for therapeutic drug monitoring CBC W/DIFF AUTOMATED Routine 02/27/2025 9:46 AM CDT Encounter for therapeutic drug monitoring MG SCREENING W JUDY ANDI DIGI Routine 01/01/2025 10:22 AM CDT Visit for screening mammogram DIABETIC RETINOPATHY EXAM (NEGATIVE)(SCAN ORDER) Routine 12/21/2024 HEMOGLOBIN, GLYCOSYLATED Routine 12/13/2024 Type 2 diabetes mellitus with stage 3b chronic kidney disease, without long-term current use of insulin ([facility]) BONE DENSITY GENERIC (SCAN ORDER) 12/04/2024 LIPID PANEL Routine 09/20/2023 8:52 AM ORGANIZATIONAL PSYCHOLOGIST Type 2 diabetes mellitus with stage 3b chronic kidney disease, without long-term current use of insulin Dyslipidemia HEPATITIS C ANTIBODY Routine 07/06/2022 11:23 AM CDT Neuropathy Fatigue Arthritis Myalgia Hypomagnesemia Diabetes mellitus screening Vitamin D deficiency Vitamin B 12 deficiency Iron deficiency anemia, unspecified Therapeutic drug monitoring Screening examination for poliomyelitis Abnormal liver function test Systemic lupus erythematosus COLONOSCOPY Routine 03/01/2014 12:00 AM CDT from Last 3 Months or Most Recently Relevant to Health Maintenance Results * (ABNORMAL) BASIC METABOLIC PANEL (02/27/2025 9:46 AM CDT) GLUCOSE 122(H) 70 - 99 MG/DL 02/27/2025 10:18 AM CDT [facility] BUN 23(H) 7 - 18 MG/DL 02/27/2025 10:18 AM CDT [facility] CREATININE S/P/B 1.68(H) 0.55 - 1.02 MG/DL 02/27/2025 10:18 AM CDT [facility] SODIUM S/P/B 144 136 - 145 MMOL/L 02/27/2025 10:18 AM CDT [facility] POTASSIUM S/P/B 4.4 3.5 - 5.1 MMOL/L 02/27/2025 10:18 AM CDT [facility] CHLORIDE S/P/B 108 100 - 108 MMOL/L 02/27/2025 10:18 AM T [facility] CO2 31.2 21 - 32 MMOL/L 02/27/2025 10:18 AM T [facility] CALCIUM S/P/B 9.2 8.5 - 10.1 MG/DL 02/27/2025 10:18 AM CDT [facility] ANION GAP 4.8(L) 5 - 15 MMOL/L 02/27/2025 10:18 AM T [facility] BUN CREATININE RATIO 13.7 6 - 26 02/27/2025 10:18 AM T [facility] GFR ESTIMATE 32(L) >90 ML/MIN/1.7 3 M2 02/27/2025 10:18 AM T [facility] Comment: NOTE: eGFR is not calculated for patients <18 years of age. This is an estimated GFR calculation using the new CKD EPI creatinine equation without race and so does not require a correction factor for race. This estimated GFR should not be used for calculating drug doses. 02/27/2025 9:46 AM CDT Gerber Maher MD LABORATORY Final Result [facility] [address] [place] [address], * (ABNORMAL) HEPATIC FUNCTION PANEL (02/27/2025 9:46 AM CDT) TOTAL PROTEIN S/P/B 6.3(L) 6.4 - 8.2 G/DL 02/27/2025 10:18 AM CDT [facility] ALBUMIN S/P/B 3.1(L) 3.4 - 5.0 G/DL 02/27/2025 10:18 AM CDT [facility] BILIRUBIN TOTAL S/P/B 0.5 0.2 - 1.2 MG/DL 02/27/2025 10:18 AM CDT [facility] BILIRUBIN DIRECT S/P/B 0.1 0.0 - 0.20 MG/DL 02/27/2025 10:18 AM CDT [facility] BILIRUBIN INDIRECT S/P/B 0.4 0.0 - 0.9 MG/DL 02/27/2025 10:18 AM CDT [facility] ALKALINE PHOSPHATASE S/P/B 119 50 - 136 U/L 02/27/2025 10:18 AM T [facility] AST 13(L) 15 - 37 U/L 02/27/2025 10:18 AM CDT [facility] ALT 26 14 - 55 U/L 02/27/2025 10:18 AM CDT [facility] A/G RATIO 1.0 1.0 - 2.0 RATIO 02/27/2025 10:18 AM T [facility] 02/27/2025 9:46 AM CDT Gerber Maher MD LABORATORY Final Result [facility] [address] [place] [address], * (ABNORMAL) CBC W/DIFF AUTOMATED (02/27/2025 9:46 AM CDT) WBC 3.53(L) 4.4 - 11.0 x10'3/uL 02/27/2025 9:55 AM CDT [facility] RBC 2.70(L) 4.50 - 5.10 x10'6/uL 02/27/2025 9:55 AM CDT [facility] HGB 9.3(L) 12.3 - 15.3 G/DL 02/27/2025 9:55 AM CDT [facility] HCT 28.4(L) 35.9 - 44.6 % 02/27/2025 9:55 AM CDT [facility] MCV 105.2(H) 80.0 - 96.0 FL 02/27/2025 9:55 AM CDT [facility] MCH 34.4(H) 25.3 - 30.9 PG 02/27/2025 9:55 AM CDT [facility] MCHC 32.7 31.0 - 34.1 G/DL 02/27/2025 9:55 AM CDT [facility] RDW 15.3(H) 12.4 - 15.1 % 02/27/2025 9:55 AM CDT [facility] PLT 153 151 - 353 x10'3/uL 02/27/2025 9:55 AM CDT [facility] MPV 9.1(L) 9.6 - 12.0 FL 02/27/2025 9:55 AM CDT [facility] SEG NEUTROPHILS 43 42 - 72 % 10:21 AM CDT [facility] LYMPHOCYTES 52(H) 15.8 - 45.0 % 02/27/2025 10:21 AM CDT [facility] MONOCYTES 2(L) 5.7 - 12.5 % 02/27/2025 10:21 AM CDT [facility] EOSINOPHILS 3 0 - 5.6 % 02/27/2025 10:21 AM CDT [facility] ABS. NEUTROPHILS 1.52 1.40 - 6.00 x10'3/uL 02/27/2025 10:21 AM CDT [facility] ABS. LYMPHOCYTES 1.84 0.80 - 4.70 x10'3/uL 02/27/2025 10:21 AM CDT [facility] PLT MORPH. NORMAL 02/27/2025 10:21 AM CDT [facility] RBC MORPHOLOGY NORMAL 02/27/2025 10:21 AM CDT [facility] WBC MORPHOLOGY NORMAL 02/27/2025 10:21 AM CDT [facility] 02/27/2025 9:46 AM CDT Gerber Maher MD LABORATORY Final Result [facility] [address] [place] [address], * MG SCREENING W JUDY ANDI DIGI (01/01/2025 10:22 AM CDT) Anatomical Region Laterality Modality Breast Bilateral Mammography 01/01/2025 4:09 PM CDT Impressions 01/01/2025 4:12 PM CDT ===== IMPRESSION: ===== 1. Stable mammographic appearance with no new findings to suggest malignancy in either breast. Assessment: ACR BI-RADS 1 - NEGATIVE Recommendation: 1:Routine Screening Bilateral Comments: Ordered By: ANN KOENIG Interpreted By: Gavin Curry, 01/01/2025 4:09 PM Narrative 01/01/2025 4:12 PM CDT [facility] [address] [place] [address] EXAMINATION: Digital bilateral screening mammogram with 3-D tomosynthesis EXAM DATE/TIME: 01/01/2025 9:27 AM REASON FOR EXAM: Routine screening Benign left breast biopsy in 1991. Breast carcinoma in sister at age 69 and paternal aunt at age 18 COMPARISON: 08/26/2022. 12/07/2023 Technique: Digital screening mammography of both breasts was performed in addition to 3-D Tomosynthesis technique. This study was read with the assistance of a computer-aided detection system. Tissue density: The breasts are almost entirely fatty. Findings: There is no new focal asymmetry, dominant mass lesion, area of skin thickening, or cluster of suspicious appearing calcifications in either breast to suggest malignancy. Ann Koenig MD MAMMO Final Result * DIABETIC RETINOPATHY EXAM (NEGATIVE) (12/21/2024) [employer] Scanned SCANNING Final Resu lt Performing Organization Address City/[facility]/ZIP Co de Phone Number [facility] ON[facility] * HEMOGLOBIN, GLYCOSYLATED (12/13/2024) HGB A1C 6.4 % [id number] [facility] 12/13/2024 Result [facility] Ann Koenig MD LABORATORY Final Result Performing Organization Address [facility] Co de Phone Number [phone] [facility] [address] [place] [address], [place] [phone] * BONE DENSITY GENERIC (SCAN ORDER) (12/04/2024) Anatomical Region Laterality Modality Other 12/04/2024 [employer] Scanned SCANNING Final Resu lt * (ABNORMAL) LIPID PANEL (09/20/2023 8:52 AM ORGANIZATIONAL PSYCHOLOGIST) CHOLESTEROL 217(H) <200.0 MG/DL 09/20/2023 1:28 PM ORGANIZATIONAL PSYCHOLOGIST [facility] TRIGLYCERIDES 113 <150 MG/DL 09/20/2023 1:28 PM [facility] HDL 55 >40.0 MG/DL 09/20/2023 1:28 PM [facility] LDL (CALCULATED) 139(H) <100 MG/DL 09/20/2023 1:28 PM [facility] NON HDL CHOLESTEROL 162(H) <130 MG/DL 09/20/2023 1:28 PM [facility] CHOL/HDL RATIO 3.9 0.0 - 4.5 09/20/2023 1:28 PM [facility] VLDL CALCULATION 23 5 - 55 MG/DL 09/20/2023 1:28 PM [facility] LIPID INTERPRETATION 09/20/2023 1:28 PM [facility] Comment: NIH CONCENSUS REPORT RECOMMENDATIONS: ADULT CHILD LOW RISK: CHOLESTEROL <200 <170 TRIGLYCERIDE <150 --- HDL >=60 --- LDL <100 <110 BORDERLINE: CHOLESTEROL 200-239 170-199 TRIGLYCERIDE 150-199 --- HDL 40-59 --- LDL 100-159 110-129 HIGH RISK: CHOLESTEROL >=240 >=200 TRIGLYCERIDE >=200 --- HDL <40 --- LDL >=160 >=130 09/20/2023 8:52 AM ORGANIZATIONAL PSYCHOLOGIST Miriam Jaquez [facility] Final Re sult [facility] [address] [place] [address], * HEPATITIS C ANTIBODY (07/06/2022 11:23 AM CDT) HEPATITIS C AB NON-REACTI VE NON-REACTI VE 07/06/2022 3:36 PM CDT [facility] 07/06/2022 11:2 3 AM CDT us Gerber Maher MD LABORATORY Final Result [facility] [address] [place] [address], * Colonoscopy (03/01/2014 12:00 AM CDT) 03/01/2014 03/01/2014 Narrative [facility] TO EPIC CONVERSION - 03/01/2014 12:00 AM CDT Documented hx of procedure Procedure Note Johanna Armstrong, - 07/30/2018 Documented hx of procedure us Generic Rosa Armstrong MD GI PROCEDURE ORDERABLES Final Result [facility] TO EPIC CONVERSION from Last 3 Months or Most Recently Relevant to Health Maintenance Insurance HUMANA HUMANA Advance Directives Documents on File Type Date Recorded Patient Copier Repair Technician Expl anation Legal Documents 09/01/2021 6:59 AM [...] 11:56 AM 11/15/2022 3:55 PM Care Teams Band Builder Relationship Specialty [place] [address] [facility] [address] [place] [address] PCP - General FAMILY PRACTICE 12/27/22 Isidro Christianson MD [address] [address] [employer] Manager CARDIOVASCULAR DISEASE 02/25/16 [place] [address] [place] [address] OTOLARYNGOLOGY 09/28/24 09/28/25
--- OUTSIDE RECORDS SUMMARY | 2025-03-27 11:54 | XMS_ITS | Encounter Summary ---
Author Organization [facility] Healthcare Address [address] [place] [address] Care Team Providers Care Facilities Maintenance Technician Name Role Phone Gertrude Butt MD Primary Care Provider [phone] Ann Koenig MD Primary Care Provider [phone] Encounter Details Date Type Department Care Team (Late st Contact Info) Description 08/04/2020 Documentation [facility] Case Management [address] [place] [address] Nohelia Connor RN Social History Tobacco Use Types Packs/Day Years Used Date Smoking Tobacco: Never Smokeless Tobacco: Never Alcohol Use Standard Drinks/Week Comments Not Currently 0 (1 standard drink = 0.6 oz pur e alcohol) Comments No Sex and Gender Information Value Date Recorded Sex Assigned at Not on file Legal Sex Female 12:35 AM MAIL PROCESSING CLERK Gender Identity Female 09/08/2020 3:29 PM MAIL PROCESSING CLERK Sexual Orientation Choose not to disclose 2019 3:38 PM MAIL PROCESSING CLERK documented as of this encounter Plan of Treatment Not on file documented as of this encounter Visit Diagnoses Diagnosis Primary osteoarthritis of shoulder, unspecified laterality- Primary documented in this encounter Care Teams Facilities Maintenance Technician Relationship Specialty [place] [address] [address] PCP - General Internal Medicine 01/16/19 07/18/24 [place] [address] [address] [address] PCP - General Family Medicine 07/19/24 documented as of this encounter
--- OUTSIDE RECORDS SUMMARY | 2025-03-27 11:54 | XMS_ITS | Encounter Summary ---
Author Organization [facility] Address [facility] [place] [address] Care Team Providers Care Shift Supervisor Name Role Phone Gertrude Butt MD Primary Care Provider + [phone] Isidro Christianson MD Unavailable [phone] Gertrude Butt MD Primary Care Provider [phone] Ann Koenig MD Primary Care Provider [phone] Corinne Huizar RN Unavailable [phone] Corinne Huizar RN Unavailable [phone] Leonardo Bach MD Unavailable Encounter Details Date Type Department Care Team (Late st Contact Info) Description 01/09/[address] [facility] [address] [place], [place] [id number] , Generic Conversion, Social History Tobacco Use [...] Description 06/12/2025 7:00 AM CDT Laboratory Only [facility] Family & Internal Medicine [facility] [address] [place] [address] 06/19/2025 7:20 AM CDT Office Visit [facility] Family [facility] Internal Medicine [facility] [address] [place] [address] [place] [address] [facility] [place] [address] 06/27/2025 8:00 AM CDT Office Visit [facility]ty [facility] [address] [facility] [place] [address] Matt Love MD 3rd [facility] [address] [place] [address] 11/28/2025 9:15 AM CABIN SERVICE AGENT Office Visit [facility] [address] [place] [address] Isidro Christianson MD Three [facility]. [address] [place] [address] documented as of this encounter Visit Diagnoses Not on filedocumented in this encounter Additional Health Concerns Infection Onset Date Last Indicated Resolved Time COVID-19 Rule Out 07/21/2020 07/21/2020 07/22/2020 8:25 PM CDT COVID-19 Rule Out 01/06/2021 01/06/2021 01/07/2021 5:00 PM CDT COVID-19 Rule Out 08/29/2023 08/29/2023 08/29/2023 3:16 PM CABIN SERVICE AGENT documented as of this encounter Care Teams Shift Supervisor Relationship Specialty Start Date End Date Gertrude Butt MD PCP - General INTERNAL MEDICINE 02/25/16 09/10/20 Gertrude Butt MD Three [facility]. [facility] [address] [place] [address] PCP - General INTERNAL MEDICINE 09/11/20 12/26/22 [place] [address] [address] [id number] PCP - General FAMILY PRACTICE 12/27/22 Isidro Christianson MD Three [facility]. [facility] [address] [place] [address] [place] Seismograph Recorder CARDIOVASCULAR DISEASE 02/25/16 Corinne Huizar RN [address] [place] [address] Produce Runner (Ambulatory) REGISTERED NURSE 08/16/23 08/28/23 Corinne Huizar RN [address] [place] [address] Produce Runner (Ambulatory) REGISTERED NURSE 08/30/23 09/21/23 [place] [address] [address] [place], [place] [id number] OTOLARYNGOLOGY 09/28/24 09/28/25 documented as of this encounter
--- OUTSIDE RECORDS SUMMARY | 2025-03-27 11:54 | XMS_ITS | Encounter Summary ---
Author Organization [facility] Address [facility] [place] [address] Care Team Providers Care Communication Signals Intelligence Name Role Phone Gertrude Butt MD Primary Care Provider + [phone] Isidro Christianson MD Unavailable [phone] Gertrude Butt MD Primary Care Provider + [phone] Ann Koenig MD Primary Care Provider [phone] Corinne Huizar RN Unavailable [phone] Corinne Huizar RN Unavailable [phone] Leonardo Bach MD Unavailable Encounter Details Date Type Department Care Team (Late st Contact Info) Description 11/08/2017 Abstract [facility] at [address] [address] Ana Luisa Jennings MA Social History Tobacco [...] Description 06/12/2025 7:00 AM CDT Laboratory Only [facility] [address] [place] [phone] 06/19/2025 7:20 AM CDT Office Visit [facility] [address] [place] [phone] [place] [address] [facility] [place] [address] 06/27/2025 8:00 AM CDT Office Visit [facility]ispecialty Care - [facility] [address] [facility] [address] [place] [address] Matt Love MD 3rd [facility] [address] [place] [address] 11/28/2025 9:15 AM PIPE CLEANER Office Visit [facility] [address] [place] [address] Isidro Christianson MD Three [facility]. [address] [place] [address] documented as of this encounter Procedures Procedure [...] Rule Out 08/29/2023 08/29/2023 08/29/2023 3:16 PM PIPE CLEANER documented as of this encounter Care Teams Communication Signals Intelligence Relationship Specialty Start Date End Date Gertrude Butt MD PCP - General INTERNAL MEDICINE 02/25/16 09/10/20 Gertrude Butt MD [address] [address] PCP - General INTERNAL MEDICINE 09/11/20 12/26/22 [place] [address] [facility] [address] [place] [address] PCP - General FAMILY PRACTICE 12/27/22 Isidro Christianson MD Three [facility]. [address] [place] [address] [place] Contract Paralegal CARDIOVASCULAR DISEASE 02/25/16 Corinne Huizar, RN [address] [place] [address] It Trainee (Ambulatory) REGISTERED NURSE 08/16/23 08/28/23 Corinne Huizar RN [address] [place] [address] It Trainee (Ambulatory) REGISTERED NURSE 08/30/23 09/21/23 [place] [address] [place] [address] OTOLARYNGOLOGY 09/28/24 09/28/25 documented as of this encounter
--- OUTSIDE RECORDS SUMMARY | 2025-03-27 11:54 | XMS_ITS | Clinical Summary ---
Author Organization [facility] Address [address] [place] [address] Care Team Providers Care Print Line Inspector Name Role Phone Unavailable Primary Care Provider Unavailabl e Source Comments [facility],non-owned Affiliates and Associated Physician Practices is amultiple site organization consisting of ambulatory clinics and hospital sitesin [place], [place], [place]. This disclosure is being madepursuant to the Care Everywhere program and may not contain all information available regarding this patient. Last updated 18.[facility] Social History Tobacco Use Types Packs/Day Years Used Date Smoking Tobacco: Never Assessed Comments Unknown Sex and Gender Information Value Date Recorded Sex Assigned at Not on file Legal Sex Female 6:12 PM CDT Gender Identity Not on file Sexual Orientation [...] FLEX SIG - COLON CA SCREENING 1950 MAMMOGRAM 1949 DTAP/TDAP/TD VACCINES (1 - Tdap) 1968 PNEUMOCOCCAL VACCINE 50+ (1 of 1 - PCV) 1999 ZOSTER VACCINE (1 of 2) 1999 Respiratory Syncytial Virus (RSV) Vaccine Pt: or over 60 yrs (1 - 1-dose 75+ series) 2024 COVID-19 VACCINE (1 - 2023- season) 2024 LIPID TESTING 07/03/2024 07/03/2019 DEPRESSION SCREENING 09/26/2024 INFLUENZA VACCINE (Season Ended) 2025 07/02/2019, 07/04/2017, 06/09/2016, Additional history exists HEPATITIS C SCREENING Completed 07/03/2019 HEPATITIS B VACCINE Aged Out No longe r eligible based on patient's age to complete this topic HIB VACCINE Aged Out No longer eligi ble based on patient's age to complete this topic HPV VACCINE Aged Out No longer eligi ble based on patient's age to complete this topic MENINGOCOCCAL (Group B) VACCINE SHARED DECISION-MAKING Aged Out No longer eligible based on patient's age to complete this topic MENINGOCOCCAL GROUPS A/C/Y/W VACCINE Aged Out No longer eligible based on patient's age to complete this topic
--- OUTSIDE RECORDS SUMMARY | 2025-03-27 11:54 | XMS_ITS | Clinical Summary ---
Author Organization [facility] Address [address] [place] [address] Care Team Providers Care Parachute Packer Name Role Phone Ann Koenig MD Primary Care Provider [phone] Allergies Active Allergy Reactions Criticality Noted Date Comments Methadone Dizziness,Muscle pain,Other (See comments) High 08/18/2015 Slurred speech Lvcdfde-Bwj-Elh Reductase Inhibitors Muscle pain Medium 03/27/2019 Medications [...] 20 Active Accu-Chek Guide Me Glucose [facility] USE TO CHECK GLUCOSE TWICE DAILY 11/25/19 [...] (07/14/2020): Added automatically from request for surgery [id number] Shoulder arthritis 07/14/2020 Overview (07/14/2020): Added automatically from request for surgery [id number] MARIE (dyspnea on exertion) 07/07/2020 Metabolic syndrome 07/07/2020 Physical deconditioning 07/07/2020 Restrictive lung disease 07/07/2020 Dysphagia 06/24/2020 Overview (12/22/2020): Added automatically from request for surgery [id number] Gastrointestinal hemorrhage associated with anorectal source 06/24/2020 Overview (12/22/2020): Added automatically from request for surgery [id number] Essential hypertension 02/06/2019 GERD (gastroesophageal reflux disease) 9 Right hip pain 07/12/2018 Acute upper respiratory infection 06/26/2018 Biceps tendon rupture, proximal 01/31/2018 Wheezing 01/10/2018 Tear of medial meniscus of right knee 12/13/2017 Lytic lesion of bone on x-ray 12/01/2017 Fall, accidental 11/14/2017 Knee pain 11/07/2017 Wears glasses 10/17/2017 Shoulder pain, right 07/20/2017 Overview (02/06/2019): Annotation - [id number]: Dx 2012 Right shoulder pain 07/20/2017 Overview (12/22/2020): Annotation - [id number]: Dx 2012 Added automatically from request for surgery [id number] Class 3 severe obesity in adult 07/04/2017 Chest pain due to myocardial ischemia 04/25/2017 Dyslipidemia 04/25/2017 Unsteady gait 01/11/2017 Tendinitis, calcific, shoulder 01/11/2017 Shoulder arthritis 01/11/2017 Overview (12/22/2020): Added automatically from request for surgery [id number] Posterior tibial tendonitis 11/19/2016 Neck pain 06/09/2016 NAY on CPAP 06/09/2016 Overview (02/06/2019): Annotation - [id number]: 10/18/16 sleep titration study 12 mmhg Osteoporosis screening 06/09/2016 Overview (02/06/2019): Transitioned From: Encounter for preventive health examination Vitamin D deficiency 06/09/2016 Sore muscles 04/22/2015 Muscle spasm 02/24/2015 DDD (degenerative disc disease), cervical 2014 Diabetes mellitus 12/03/2014 Gout 12/03/2014 Hyperlipidemia 12/03/2014 Lumbar spinal stenosis 12/03/2014 Neuropathy, peripheral 12/03/2014 RLS (restless legs syndrome) 12/03/2014 TIA (transient ischemic attack) 05/27/2011 Surgical History Surgery Date Site/Laterality Comments FLUORO GUIDED INJECTION SHOULDER RIGHT 02/13/2019 Right EPIDURAL INJECTION RIGHT CERVICAL THORACIC 1 LEVEL 05/24/2019 Right FLUORO GUIDED INJECTION SHOULDER RIGHT 08/20/2019 Right COLONOSCOPY 2019 & 2003 BREAST BIOPSY 04/1992 , 07/1992 Left HYSTERECTOMY 11/24/1977 - 12/24/1977 Partial Hysterectomy GANGLION CYST EXCISION 09/26/1976 - 09/25/1977 Right CARPAL TUNNEL RELEASE 1991 & 1990 Bilateral 1991-Rt, 1990-L OTHER SURGICAL HISTORY 09/26/2007 - 09/25/2008 Exploratory bladder surgery NECK SURGERY 01/24/2010 - 02/23/2010 ESOPHAGOSCOPY / EGD 07/24/2020 CHOLECYSTECTOMY SPINE SURGERY Spinal intervetebral disc/vertabrae fusion Medical History Medical History Date Comments Personal history of other me dical treatment 04/2008 Hospitalized due to having paresthesia waist down to feet-per Pt Personal history of other me dical [...] on file Legal Sex Female 12:35 AM ADULT AND PEDIATRIC NEUROLOGIST Gender Identity Female 09/08/2020 3:29 PM ADULT AND PEDIATRIC NEUROLOGIST Sexual Orientation Choose not to disclose 2019 3:38 PM ADULT AND PEDIATRIC NEUROLOGIST Obstetrics History Comments Post menopause Last Filed Vital Signs Vital Sign Reading Time Taken Comments Blood Pressure 116/52 08/04/2020 6:59 AM ADULT AND PEDIATRIC NEUROLOGIST Pulse 79 08/04/2020 6:59 AM ADULT AND PEDIATRIC NEUROLOGIST Temperature 36.2 C (97.1 F) 08/04/2020 6:59 AM ADULT AND PEDIATRIC NEUROLOGIST Respiratory Rate 18 08/04/2020 6:59 AM ADULT AND PEDIATRIC NEUROLOGIST Oxygen Saturation 92% 08/04/2020 6:59 AM ADULT AND PEDIATRIC NEUROLOGIST Inhaled Oxygen Concentration - - Weight 95.7 kg (211 lb) 10/09/2024 4:24 PM ADULT AND PEDIATRIC NEUROLOGIST Height 157.5 cm (5' 2) 10/09/2024 4:24 PM ADULT AND PEDIATRIC NEUROLOGIST Body Mass Index 38.59 10/09/2024 4:24 PM ADULT AND PEDIATRIC NEUROLOGIST Plan of Treatment Health Maintenance Due Date Last Done Comments Albumin Creatinine Ratio, Urine 1950 Colon Cancer Screening-Colonoscopy 1949 Depression Screening 1949 Hepatitis C Screening 1949 Dilated Eye Exam 1949 Foot Exam 1949 Hepatitis B Screening 1967 Well Visit 65+ 2014 Osteoporosis Screening-Bone Density Scan 06/11/2018 06/11/2016 Hemoglobin A1C 01/23/2021 07/25/2020 Fall Risk Assessment 08/04/2021 08/04/2020 eGFR 08/04/2021 08/04/2020, 04/2020, 08/02/2020 Covid-19 Vaccine (2023-2 5 season) 2024 07/23/2021, 12/30/2020, 12/02/2020 Lipid Panel 09/20/2024 09/20/2023, 07/03/2019 DTaP/Tdap/Td Vaccine (2 - Td or Tdap) 07/04/2025 07/04/2015 Pneumococcal vaccine 65+ Completed 020, 03/15/2016, 07/24/2014 Zoster Vaccine Completed 01/04/2023, 10/25/2022 Breast Cancer Screening-Mammogram Discontinued 12/07/2023, 08/26/2022, 08/24/2021, Additional history exists Influenza Vaccine Completed 07/14/2024, , 07/20/2020, Additional history exists Medical Devices Implanted Type Area Contracts Intern Device Identifier Shelf Expiration Date Model / Serial / Lot [employer] [id number] Delta Xtend 38mm Shoulder +3mm Standard Cup Humeral Polyethylene Latex Free - Sna - [id number] Implanted:Qty: 1 on 08/01/2020 by Harris Corado MD at [facility] Other - see comments [employer] [id number] 04/25/2025 [id number] / NA / [id number] [employer] [id number] Metaglene 10mm Long Peg Fixation - [id number] Implanted:Qty: 1 on 08/01/2020 by Harris Corado MD at [facility] Right: Shoulder [employer] [id number] 06/25/2025 [id number] / / [id number] [employer] [id number] Delta Xtend 4.5mm 36mm Lock Shoulder Glenoid Screw Bone Metaglene - [id number] Implanted:Qty: 1 on 08/01/2020 by Harris Corado MD at [facility] Right: Shoulder [employer] [id number] 04/25/2025 [id number] / / [id number] [employer] [id number] Delta Xtend 4.5mm 36mm Lock Shoulder Glenoid Screw Bone Metaglene - [id number] Implanted:Qty: 1 on 08/01/2020 by Harris Corado MD at [facility] Right: Shoulder [employer] [id number] 05/26/2025 [id number] / / [id number] [employer] [id number] Cmpnt Glenoid 38mm +4mm Eccentric Delta Xtend - [id number] Implanted:Qty: 1 on 08/01/2020 by Harris Corado MD at [facility] Right: Shoulder [employer] [id number] 05/26/2024 [id number] / / [id number] [employer] [id number] Global Unite 8mm 107mm Modular Shoulder Standard Stem Humeral - [id number] Implanted:Qty: 1 on 08/01/2020 by Harris Corado MD at [facility] Right: Shoulder [employer] [id number] 11/23/2028 [id number] / / [id number] [employer] [id number] Implant Shldr Xtend Modecc 155epi Por Sz1 Rt - [id number] Implanted:Qty: 1 on 08/01/2020 by Harris Corado MD at [facility] Right: Shoulder [employer] 04/25/2030 [id number] / / [id number] Explanted Type Area Contracts Intern Device Identifier Shelf Expiration Date Model / Serial / Lot [employer] [id number] Delta Xtend 1.2mm 150mm Screw Glenoid Large Guide Pin Orthopedic - [id number] Explanted:Qty: 1 on 08/01/2020 at [facility] [employer] [id number] / / Description:*ADDED TO KliqueAN T SCREEN TO CORRECT NEW ITEM ADDED ON SUPPLY. THIS IS BUILT IN [employer] AN IMPLANT. KV Procedures Procedure Name Priority Date/Time Associated Diagnosis Comments EGFR Routine 08/04/2020 5:54 AM ADULT AND PEDIATRIC NEUROLOGIST POCT HEMOGLOBIN A1C Routine 07/25/2020 9 :08 AM CDT from Last 3 Months or Most Recently Relevant to Health Maintenance Results * eGFR (08/04/2020 5:54 AM ADULT AND PEDIATRIC NEUROLOGIST) eGFR 38 mL/min/1.7 3 m2 [facility] Comment: Interpretive Data Reference Interval Normal >/= 90 mL/min/1.73m2 Mildly decreased* 60 - 89 mL/min/1.73m2 Mildly to moderately decreased 45 - 59 mL/min/1.73m2 Moderately to severely decreased 30 - 44 mL/min/1.73m2 Severely decreased 15 - 29 mL/min/1.73m2 Kidney Failure < 15 mL/min/1.73m2 *Relative to young adult level If -[place] Islander multiply value by 1.16. Estimated glomerular filtration [...] 2016. Blood specimen (specimen) 08/04/2020 5:54 AM ADULT AND PEDIATRIC NEUROLOGIST 08/04/2020 6:01 AM ADULT AND PEDIATRIC NEUROLOGIST Sameer Eddy MD LAB BLOOD ORDERABLES F inal Result Performing Organization Address City/[facility]/ZIP Co de Phone Number [facility] [address] [facility] [place] [address] * (ABNORMAL) POCT hemoglobin A1c (07/25/2020 9:08 AM CDT) Hgb A1C, POC 6.6(H) 4.0 - 6.0 % [facility] Est Average Gluc POC 143 mg/dL [facility] Comment: The ADA recommends reporting an estimated Average Glucose (eAG) with all Hemoglobin A1c results using the equation derived from a study of 507 normal and diabetic adults. Minority populations were underrepresented and children were not included. (Diabetes Care 31:1065-2279, 2008). The eAG is not equivalent to a fasting glucose. Blood specimen (specimen) 07/25/2020 9:08 AM CDT 07/25/2020 9:08 AM CDT Harris Corado MD POINT OF CARE TEST ORD ERABLES Final Result Performing Organization Address City/[facility]/ZIP Co de Phone Number [facility] [place] [address] from Last 3 Months or Most Recently Relevant to Health Maintenance Insurance [place] MEDIC[place] O MEDICARE HUMANA CHOICE MEDICARE PPO AARP HUMANA CHOICE MEDICARE PPO AARP Advance Directives For more information, please contact: [phone] Documents on File Type Date Recorded Patient Security Project Manager Expl anation ADVANCE DIRECTIVE 08/01/2020 7:45 AM * Full Code (Latest Code Status on File) Date Activated Date Inactivated Comments 08/01/2020 1:20 PM 08/04/2020 4:52 PM Care Teams Parachute Packer Relationship Specialty [place] [address] [place] [address] PCP - General Family Medicine 07/19/24
--- OUTSIDE RECORDS SUMMARY | 2025-03-27 11:54 | XMS_ITS | Encounter Summary ---
Author Organization [facility] Address [address] [place] [address] Care Team Providers Care Vacuum Repairer Name Role Phone Isidro Christianson MD Unavailable [phone] Gertrude Butt MD Primary Care Provider [phone] Ann Koenig MD Primary Care Provider [phone] Corinne Huizar RN Unavailable [phone] Corinne Huizar RN Unavailable [phone] Leonardo Bach MD Unavailable Encounter Details Date Type Department Care Team (Late st Contact Info) Description 03/09/2022 AudioName Message Enc [facility], [address] [address] [place], [facility] Provider lab results Social History Tobacco [...] 7:00 AM CDT Laboratory Only [facility] [address] [place] [address] 06/19/2025 7:20 AM CDT Office Visit [facility] [place] [address] [place] [phone] [place] [address] [facility] [place] [address] 06/27/2025 8:00 AM CDT Office Visit [facility] - [address] [place] [address] Matt Love MD [address] [place] [address] [address] [place] [address] 11/28/2025 9:15 AM CATALYST UNIT OPERATOR Office Visit [facility] [address] [place] [id number] Isidro Christianson MD [address] [id number] documented as of this encounter Visit Diagnoses Not on filedocumented in this encounter Additional Health Concerns Infection Onset Date Last Indicated Resolved Time COVID-19 Rule Out 08/29/2023 08/29/2023 08/29/2023 3:16 PM CATALYST UNIT OPERATOR Assessment Noted Time PHQ-9 Depression Total Score: 0 12/15/19 8:07 AM CDT documented as of this encounter Care Teams Vacuum Repairer Relationship Specialty Start Date End Date Gertrude Butt MD [address] [address] PCP - General INTERNAL MEDICINE 09/11/20 12/26/22 [place] [id number] [employer] [place] [id number] PCP - General FAMILY PRACTICE 12/27/22 Isidro Christianson MD [address] [id number] [employer] Field Worker CARDIOVASCULAR DISEASE 02/25/16 Corinne Huizar RN [facility] [place] [address] Tandem Mill Operator (Ambulatory) REGISTERED NURSE 08/16/23 08/28/23 Corinne Huizar RN [facility] [place] [address] Tandem Mill Operator (Ambulatory) REGISTERED NURSE 08/30/23 09/21/23 [place] [address] [place] [address] OTOLARYNGOLOGY 09/28/24 09/28/25 documented as of this encounter
--- NOTE | 2025-03-27 13:19 | ECG_ITS ---
Test Date: 2025-03-27 13:41:41 Measurements Intervals [place] Rate: 77 P: 14 UT: 230 QRS: 20 QRSD: 105 T: 29 QT: 360 QTc: 408 Interpretive Statements SINUS RHYTHM WITH FIRST DEGREE AV BLOCK LOW QRS VOLTAGE IN PRECORDIAL LEADS [QRS DEFLECTION < 1.0 mV IN CHEST LEADS] No previous ECG available for comparison Electronically Signed On 03-28-2025 16:32:36 CDT by Liana Aldrich
[2025-03-27 13:53] LABS: Hematocrit 25.6 % (37.0-47.0); Hemoglobin 8.2 g/dL (12.0-15.0); Mean Corpuscular HGB Conc 32.0 g/dl (32-36); Mean Corpuscular Hemoglobin 34.0 pg (26-34); Mean Corpuscular Volume 106.2 fl (80-100); Platelet Count Result 105 k/mm3 (150-375); Red Blood Count 2.41 M/mm3 (4.2-5.4); White Blood Count 2.1 K/mm3 (4.5-10.0)
[2025-03-27 14:03] LABS: INR 1.0; Partial Thromboplastin Time 28.3 Seconds (22.3-36.8); Prothrombin Time 13.5 Seconds (11.1-14.7)
[2025-03-27 14:04] LABS: Anion Gap 9 mmol/L (4-12); Blood Urea Nitrogen 29 mg/dL (7-17); Calcium 9.6 mg/dL (8.4-10.2); Carbon Dioxide 24 mmol/L (22-30); Chloride 104 mmol/L (98-107); Estimated Glomerular Filt Rate 29; Glucose 101 mg/dL (65-110); Potassium 4.3 mmol/L (3.4-5.0); Sodium 137 mmol/L (137-145)
[2025-03-27 14:06] LABS: Add Urine Microscopic? YES; Appearance Urine Clear (Clear); Glucose Urine UA Negative (Negative); Leukocyte Esterase Ur 2+ LEU/UL (Negative); Nitrate Urine Negative (Negative); Non Pathogenic Casts 0-2; Specific Grav Ur 1.023 (1.001-1.035)
[2025-03-27 15:37] LABS: Hemoglobin A1C. 6.6 % (<5.7)
== END 2025-03-27 11:39 | disposition home or self-care (01) ==
LOC: ANHSURGERY 11:52
PROVIDERS: PCP Family Medicine; Visit Provider Neurological Surgery
DX: Z01.818 Encounter for other preprocedural examination (principal); R94.31 Abnormal electrocardiogram [ECG] [EKG]; I44.0 Atrioventricular block, first degree; I10 Essential (primary) hypertension; M47.812 Spondylosis without myelopathy or radiculopathy, cervical region; M48.04 Spinal stenosis, thoracic region; M48.062 Spinal stenosis, lumbar region with neurogenic claudication; M48.02 Spinal stenosis, cervical region; Z98.1 Arthrodesis status
CPT/HCPCS: 36415; 72040; 80048; 81001; 83036; 85027; 85610; 85730; 87086; 93005